=== PATIENT | male | born 1960 ===

== ENCOUNTER 2020-04-26 08:40 | Inpatient (IN) | payer OTHER ==
[2020-04-26] MEDS ORDERED: dilTIAZem 25 MG/5 ML INJ IV ONE (09:13)
--- NOTE | 2020-04-26 09:27 | Emergency Department Report ---
HPI - General Chief Complaint: Dyspnea/Respdistress PUI?: No Time Seen by Provider: 04/26/20 09:02 - [facility] HPI: Room 23 The patient is a 60-year-old male present with a chief complaint of chest pain shortness of breath. The patient states for 1 week he has had constant left- sided chest pain associated with shortness of breath and diaphoresis. Patient denies nausea vomiting. Patient states he is unable to describe the quality of his pain. Patient states he does not feel like he is having palpitations. Patient gives his chest pain a score of 10/10 ED Past Medical Hx - Past Medical History Previous Medical History?: Yes Hx Hypertension: Yes - Surgical History Past Surgical History?: No - Family History Family history: no significant - Social History Smoking Status: Current Every Day Smoker (1 pack/day) Substance Use Type: None (Denies illicit drug use), Alcohol (Daily) ED Review of Systems ROS: Stated complaint: BLANCHE Other details as noted in HPI Constitutional: diaphoresis Eyes: denies: eye pain ENT: denies: throat pain Respiratory: shortness of breath Cardiovascular: chest pain. denies: palpitations Endocrine: no symptoms reported Gastrointestinal: denies: nausea, vomiting Physical Exam - Physical Exam Vital Signs: Vital Signs 04/26/20 08:47 Temperature 98.1 F Pulse Rate 146 H Respiratory 21 Rate Blood Pressure 98/42 [Left] O2 Sat by Pulse 96 Oximetry Physical Exam: GENERAL: The patient is well-developed well-nourished male lying on stretcher not appearing to be in acute distress. [] HEENT: Normocephalic. Atraumatic. Extraocular motions are intact. Patient has moist mucous membranes. NECK: Supple. Trachea midline CHEST/LUNGS: Clear to auscultation. There is no respiratory distress noted. HEART/CARDIOVASCULAR: Irregularly irregular. There is tachycardia. There is no gallop rub or murmur. ABDOMEN: Abdomen is soft, nontender. Patient has normal bowel sounds. There is no abdominal distention. SKIN: There is no rash. There is no diaphoresis. NEURO: The patient is awake, alert, and oriented. The patient is cooperative. The patient has normal speech MUSCULOSKELETAL: There is no evidence of acute injury. ED Course Vital Signs 04/26/20 08:47 Temperature 98.1 F Pulse Rate 146 H Respiratory 21 Rate Blood Pressure 98/42 [Left] O2 Sat by Pulse 96 Oximetry ED Medical Decision Making - Lab Data Result diagrams: 04/26/20 09:25 04/26/20 09:25 Laboratory Tests 04/26/20 04/26/20 04/26/20 09:25 09:25 09:25 WBC 8.0 RBC 4.99 Hgb 15.5 H Hct 47.9 H MCV 96 H MCH 31 MCHC 32 RDW 16.1 H Plt Count 126 L Lymph % (Auto) 23.3 [place] % (Auto) 8.0 H Eos % (Auto) 1.1 Baso % (Auto) 1.3 Lymph # 1.8 [place] # 0.6 Eos # 0.1 Baso # 0.1 Seg Neutrophils % 66.3 Seg Neutrophils # 5.3 PT 14.7 INR 1.17 H APTT 26.6 Sodium 140 Potassium 4.1 Chloride 106.0 Carbon Dioxide 19 L Anion Gap 19 BUN 10 Creatinine 0.7 L Estimated GFR > 60 BUN/Creatinine Ratio 14 Glucose 108 H Calcium 8.6 Magnesium Total Creatine Kinase 85 CK-MB (CK-2) 3.8 CK-MB (CK-2) Rel Index 4.4 H Troponin T 0.010 NT-Pro-B Natriuret Pep 1750 H TSH Free T4 04/26/20 04/26/20 09:25 09:25 WBC RBC Hgb Hct MCV MCH MCHC RDW Plt Count Lymph % (Auto) [place] % (Auto) Eos % (Auto) Baso % (Auto) Lymph # [place] # Eos # Baso # Seg Neutrophils % Seg Neutrophils # PT INR APTT Sodium Potassium Chloride Carbon Dioxide Anion Gap BUN Creatinine Estimated GFR BUN/Creatinine Ratio Glucose Calcium Magnesium 1.60 L Total Creatine Kinase CK-MB (CK-2) CK-MB (CK-2) Rel Index Troponin T NT-Pro-B Natriuret Pep TSH 1.390 Free T4 1.06 - EKG Data -: EKG Interpreted by Me Rate: tachycardia - EKG Data When compared to previous EKG there are: previous EKG unavailable Interpretation: other (Atrial fibrillation with a rapid ventricular response at 136 bpm) - Radiology Data Radiology results: report reviewed (Chest x-ray), image reviewed (Chest x-ray) interpreted by me: Chest x-ray-CHF Chest x-ray (read by radiologist)-cardiac enlargement with diffuse interstitial pulmonary edema, left ventricular decompensation is a concern - Differential Diagnosis A. fib with RVR, CHF, ACS, pericarditis, GERD Critical care attestation.: If time is entered above; I have spent that time in minutes in the direct care of this critically ill patient, excluding procedure time. ED Disposition Clinical Impression: Atrial fibrillation with rapid ventricular response, CHF (congestive heart failure), Chest pain Disposition: OP ADMIT IP TO THIS HOSP Is pt being admited?: Yes Does the pt Need Aspirin: Yes Condition: Fair Instructions: Chest Pain (ED) Time of Disposition: 10:51 (Hospitalist paged)
[2020-04-26 09:39] LABS: Basophils # (Auto) 0.1 K/mm3 (0.0-0.1); Basophils % (Auto) 1.3 % (0.0-1.8); Eosinophils # (Auto) 0.1 K/mm3 (0.0-0.4); Eosinophils % (Auto) 1.1 % (0.0-4.3); Hematocrit 47.9 % (35.5-45.6); Hemoglobin 15.5 gm/dl (11.8-15.2); Lymphocytes # (Auto) 1.8 K/mm3 (1.2-5.4); Lymphocytes % (Auto) 23.3 % (13.4-35.0); Mean Corpuscular HGB Conc 32 % (32-34); Mean Corpuscular Volume 96 fl (84-94); Monocytes # (Auto) 0.6 K/mm3 (0.0-0.8); Platelet Count 126 K/mm3 (140-440); Red Blood Count 4.99 M/mm3 (3.65-5.03); Red Cell Distribution Width 16.1 % (13.2-15.2)
[2020-04-26 09:55] LABS: INR 1.17 (0.87-1.13); Partial Thromboplastin Time 26.6 Sec. (24.2-36.6)
[2020-04-26] MEDS ORDERED: fentaNYL 100 MCG/2 ML INJ IV ONE ×2 (10:02→12:07)
[2020-04-26] MEDS ORDERED: ONDANSETRON 4 MG/2 ML INJ IV ONE (10:02)
[2020-04-26] MEDS ORDERED: ASPIRIN 325 MG TAB PO ONE (10:02)
[2020-04-26 10:07] LABS: Creatine Kinase MB 3.8 ng/mL (0.0-4.0)
[2020-04-26 10:08] LABS: BUN/Creatinine Ratio 14; Blood Urea Nitrogen 10 mg/dL (9-20); Calcium 8.6 mg/dL (8.4-10.2); Hemolysis Index 4
[2020-04-26 10:13] LABS: Free T4 (Free Thyroxine) 1.06 ng/dL (0.76-1.46)
[2020-04-26] MEDS ORDERED: MAGNESIUM SULFATE 2 GM/50 ML BAG IV ONE (10:45)
[2020-04-26] MEDS ORDERED: fentaNYL 100 MCG/2 ML INJ ONE (12:12)
[2020-04-26] MEDS: dilTIAZem/D5W 100 MG/100 ML BAG IV SCH (12:32)
[2020-04-26] MEDS ORDERED: ONDANSETRON 4 MG/2 ML INJ IV PRN (14:54)
[2020-04-26] MEDS ORDERED: FUROSEMIDE 40 MG/4 ML INJ IV STA (14:57)
[2020-04-26] MEDS ORDERED: NITROGLYCERIN 0.4 MG TAB SUBL SL PRN (14:58)
[2020-04-26] MEDS ORDERED: ENOXAPARIN 100 MG/1 ML INJ SUB-Q ONE (17:18)
[2020-04-26] MEDS ORDERED: hydrALAZINE 25 MG TAB ONE (17:19)
[2020-04-26] MEDS ORDERED: FUROSEMIDE 40 MG/4 ML INJ ONE (17:19)
[2020-04-26] MEDS: hydrALAZINE 25 MG TAB PO SCH ×2 (17:25→22:53)
[2020-04-26] MEDS: ENOXAPARIN 100 MG/1 ML INJ SUB-Q SCH ×2 (17:26→22:50)
[2020-04-26] MEDS: MORPHINE 2 MG/1 ML INJ IV PRN (20:22)
[2020-04-26] MEDS ORDERED: MORPHINE 2 MG/1 ML INJ ONE (20:22)
[2020-04-27 05:46] LABS: Basophils # (Auto) 0.1 K/mm3 (0.0-0.1); Basophils % (Auto) 0.9 % (0.0-1.8); Eosinophils % (Auto) 0.1 % (0.0-4.3); Hematocrit 45.7 % (35.5-45.6); Hemoglobin 15.2 gm/dl (11.8-15.2); Lymphocytes # (Auto) 1.2 K/mm3 (1.2-5.4); Mean Corpuscular HGB Conc 33 % (32-34); Mean Corpuscular Volume 96 fl (84-94); Monocytes % (Auto) 9.9 % (0.0-7.3); Platelet Count 123 K/mm3 (140-440); Red Blood Count 4.78 M/mm3 (3.65-5.03); Red Cell Distribution Width 15.8 % (13.2-15.2)
[2020-04-27 05:56] LABS: BUN/Creatinine Ratio 14; Blood Urea Nitrogen 10 mg/dL (9-20); Calcium 8.7 mg/dL (8.4-10.2); Hemolysis Index 11
[2020-04-27] MEDS: hydrALAZINE 25 MG TAB PO SCH (06:06)
[2020-04-27] MEDS: FUROSEMIDE 40 MG/4 ML INJ IV SCH ×2 (06:10→18:07)
[2020-04-27] MEDS: dilTIAZem/D5W 100 MG/100 ML BAG IV SCH (08:58)
[2020-04-27] MEDS: ENOXAPARIN 100 MG/1 ML INJ SUB-Q SCH ×2 (09:02→22:40)
[2020-04-27] MEDS: MORPHINE 2 MG/1 ML INJ IV PRN (09:11)
[2020-04-27] MEDS ORDERED: DIGOXIN 0.5 MG/2 ML INJ IV ONE (11:00)
[2020-04-27] MEDS: LISINOPRIL 5 MG TAB PO SCH (11:14)
[2020-04-27] MEDS: SPIRONOLACTONE 25 MG TAB PO SCH (11:15)
[2020-04-27] MEDS: METOPROLOL TARTRATE 50 MG TAB PO SCH ×2 (11:16→20:10)
[2020-04-27] MEDS ORDERED: MAGNESIUM SULFATE 4 GM/100 ML BAG IV ONE (14:00)
[2020-04-27] MEDS: WARFARIN 7.5 MG TAB PO SCH (18:07)
[2020-04-27] MEDS: DIGOXIN 0.25 MG TAB PO SCH (18:08)
[2020-04-27] MEDS: ACETAMINOPHEN 325 MG TAB PO PRN (20:10)
[2020-04-28] MEDS: METOPROLOL TARTRATE 50 MG TAB PO SCH ×3 (03:43→18:00)
[2020-04-28 05:35] LABS: INR 1.32 (0.87-1.13)
[2020-04-28] MEDS: FUROSEMIDE 40 MG/4 ML INJ IV SCH ×2 (05:55→17:14)
[2020-04-28] MEDS: ENOXAPARIN 100 MG/1 ML INJ SUB-Q SCH ×3 (09:01→21:01)
[2020-04-28] MEDS: LISINOPRIL 5 MG TAB PO SCH (09:01)
[2020-04-28] MEDS: SPIRONOLACTONE 25 MG TAB PO SCH (09:01)
[2020-04-28] MEDS: ACETAMINOPHEN 325 MG TAB PO PRN (09:05)
[2020-04-28] MEDS: DIGOXIN 0.25 MG TAB PO SCH (17:14)
[2020-04-28] MEDS: WARFARIN 7.5 MG TAB PO SCH (17:14)
[2020-04-28] MEDS ORDERED: MAGNESIUM SULFATE 4 GM/100 ML BAG IV ONE (19:30)
[2020-04-29] MEDS: METOPROLOL TARTRATE 50 MG TAB PO SCH ×2 (03:13→11:24)
[2020-04-29 04:47] LABS: INR 1.2 (0.87-1.13)
[2020-04-29] MEDS: FUROSEMIDE 40 MG/4 ML INJ IV SCH (06:05)
[2020-04-29] MEDS ORDERED: REGADENOSON 0.4 MG/5 ML INJ IV ONE (07:47)
[2020-04-29] MEDS ORDERED: MAGNESIUM OXIDE 400 MG TAB PO SCH (11:00)
[2020-04-29] MEDS: SPIRONOLACTONE 25 MG TAB PO SCH (11:17)
[2020-04-29] MEDS: ENOXAPARIN 100 MG/1 ML INJ SUB-Q SCH (11:17)
[2020-04-29] MEDS: LISINOPRIL 5 MG TAB PO SCH (11:17)
[2020-04-29 11:19] VITALS: BP 146/88
--- NOTE | 2020-04-29 13:36 | Treadmill Report ---
THALLIUM STRESS TEST REPORT LEFT VENTRICLE: Left ventricle is very mildly dilated. Perfusion study demonstrates homogeneous uptake of the tracer in all segments, no significant defects identified. Gated analysis is not available. CONCLUSION: No demonstrable ischemia on thallium perfusion imaging. Clinical correlation is recommended. Echocardiographic assessment of left ventricular size and systolic function is recommended. JOB# [id number] CA/NTS
== END 2020-04-29 15:45 | disposition home or self-care (01) | DRG 291 ==
LOC: ED 08:40 → 4A 10:53 → IMCU 21:12 → 4A 04-27 17:18
PROVIDERS: ADMIT Internal Medicine; ATTEND Internal Medicine
DX: I11.0 Hypertensive heart disease with heart failure (principal); I50.21 Acute systolic (congestive) heart failure; J96.00 Acute respiratory failure, unspecified whether with hypoxia or hypercapnia; I48.91 Unspecified atrial fibrillation; F17.210 Nicotine dependence, cigarettes, uncomplicated; E83.42 Hypomagnesemia; I05.0 Rheumatic mitral stenosis
CPT/HCPCS: 36415; 71045; 78452; 80048; 82550; 82553; 83735; 83880; 84439; 84443; 84484; 85025; 85610; 85730; 93005; 93017; 93306; 94760; G0378; A9502; J1160; J1650; J1940; J2270; J2405; J2785; J3010; J3475

== ENCOUNTER 2020-09-05 17:14 | Inpatient (IN) | payer OTHER, SELFPAY ==
[2020-09-05] MEDS ORDERED: dilTIAZem 25 MG/5 ML INJ IV ONE (17:55)
[2020-09-05] MEDS ORDERED: ENOXAPARIN 100 MG/1 ML INJ SUB-Q ONE (17:56)
[2020-09-05] MEDS ORDERED: FUROSEMIDE 40 MG/4 ML INJ IV ONE (17:57)
--- NOTE | 2020-09-05 17:57 | Emergency Department Report ---
ED Palpitations HPI - General Chief Complaint: Arrhythmia/Palpitations Stated Complaint: A-FIB/CHEST PAIN Time Seen by Provider: 09/05/20 17:28 Source: EMS, old records reviewed Mode of arrival: Ambulatory Limitations: Language Barrier (pt does speak some Thai however [employer] (alex) used) - History of Present Illness Initial Comments: 60-year-old male with a past medical history of A. fib, CHF with a EF of 30-35%, hypertension, daily alcohol use, and tobacco use presents to the hospital with complaints of shortness of breath and chest pain x3 days. The patient complains of a constant anterior mid chest pressure without aggravating alleviating factors. He complains of intermittent shortness of breath with exertion. Positive nausea without vomiting or diaphoresis. Patient denies sensation of palpitations or tachycardia. Patient drinks 4 beers daily with gastric this morning. 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 As per medical record review patient was admitted here in April 2020 and was diagnosed with A. fib, CHF, and hypomagnesemia. He was treated with a Cardizem drip in the ICU and then discharged metoprolol, Coumadin, Lasix, spironolactone, and digoxin. Patient had a negative stress test during his last admission. Patient states which his prescriptions ran out in June and he has not continued to take any medication. He has been unable to follow up due to lack of insurance/money. Patient initially presented to hospital stating he did not have any known medical problems and that his fast heart rate was fixed with his recent admission in April. I used a marine consultant to explain to him in details his diagnosis during the last admission and his need for long-term and chronic medication treatment. Patient now voices understanding about his medical diagnosis and need for compliance with medications and follow-up. - Related Data Previous Rx's Medication Instructions Recorded Last Taken Type Digoxin [Lanoxin] 0.25 mg PO DAILY@1700 #30 tablet 04/29/20 Unknown Rx Furosemide [Lasix TAB] 40 mg PO QDAY #30 tablet 04/29/20 Unknown Rx Magnesium Oxide [Mag-Ox] 400 mg PO BID 7 Days #14 tablet 04/29/20 Unknown Rx Metoprolol [Lopressor TAB] 50 mg PO BID #60 tablet 04/29/20 Unknown Rx Spironolactone [Aldactone] 25 mg PO QDAY #30 tablet 04/29/20 Unknown Rx Warfarin [Coumadin] 7.5 mg PO DAILY@1700 #30 tablet 04/29/20 Unknown Rx lisinopriL [Zestril TAB] 5 mg PO QDAY #30 tablet 04/29/20 Unknown Rx Allergies Allergy/AdvReac Type Severity Reaction Status Date / Time No Known Allergies Allergy Unverified 04/26/20 08:51 ED Review of Systems ROS: Stated complaint: A-FIB/CHEST PAIN Other details as noted in HPI Comment: All other systems reviewed and negative ED Past Medical Hx - Past Medical History Previous Medical History?: Yes Hx Hypertension: Yes Hx Congestive Heart Failure: No Hx Diabetes: No Hx Asthma: Yes Hx COPD: No - Surgical History Past Surgical History?: No - Social History Smoking Status: Current Every Day Smoker Substance Use Type: None - Medications Home Medications: Home Medications Medication Instructions Recorded Confirmed Last Taken Type Digoxin [Lanoxin] 0.25 mg PO DAILY@1700 #30 tablet 04/29/20 Unknown Rx Furosemide [Lasix TAB] 40 mg PO QDAY #30 tablet 04/29/20 Unknown Rx Magnesium Oxide [Mag-Ox] 400 mg PO BID 7 Days #14 tablet 04/29/20 Unknown Rx Metoprolol [Lopressor TAB] 50 mg PO BID #60 tablet 04/29/20 Unknown Rx Spironolactone [Aldactone] 25 mg PO QDAY #30 tablet 04/29/20 Unknown Rx Warfarin [Coumadin] 7.5 mg PO DAILY@1700 #30 tablet 04/29/20 Unknown Rx lisinopriL [Zestril TAB] 5 mg PO QDAY #30 tablet 04/29/20 Unknown Rx ED Physical Exam - General Limitations: No Limitations - Other Other exam information: General: No acute distress Head: Atraumatic Eyes: normal appearance ENT: Moist mucous membranes Neck: Normal appearance, no midline tenderness Chest: Clear to auscultation bilaterally CV: Tachycardic irregular rhythm Abdomen: Soft, normal bowel sounds, nontender, nondistended, no rebound or guarding Back: Normal inspection Extremity: Bilateral lower extremity edema, no calf tenderness Neuro: Alert O x 3, no facial asymmetry, speech clear, no gross motor sensory deficit Psych: Appropriate behavior Skin: No rash ED Course Vital Signs 09/05/20 09/05/20 09/05/20 17:31 17:45 18:01 Temperature 99.1 F Pulse Rate 132 H 128 H 122 H Respiratory 24 19 22 Rate Blood Pressure 148/95 148/95 154/99 Blood Pressure [Left] O2 Sat by Pulse 97 98 96 Oximetry 09/05/20 09/05/20 09/05/20 18:15 18:26 18:31 Temperature Pulse Rate 132 H 145 H 111 H Respiratory 18 22 Rate Blood Pressure 154/99 144/108 152/85 Blood Pressure [Left] O2 Sat by Pulse 98 94 Oximetry 09/05/20 09/05/20 09/05/20 18:39 18:45 19:01 Temperature Pulse Rate 140 H 110 H 103 H Respiratory 21 19 Rate Blood Pressure 152/85 158/81 158/81 Blood Pressure [Left] O2 Sat by Pulse 97 98 Oximetry 09/05/20 09/05/20 09/05/20 19:15 19:30 19:45 Temperature Pulse Rate 105 H 108 H 108 H Respiratory 14 14 23 Rate Blood Pressure 142/119 149/80 149/80 Blood Pressure [Left] O2 Sat by Pulse 98 97 95 Oximetry 09/05/20 09/05/20 09/05/20 19:50 20:01 20:15 Temperature Pulse Rate 94 H 106 H Respiratory 20 22 Rate Blood Pressure 156/94 156/94 Blood Pressure 152/104 [Left] O2 Sat by Pulse 97 96 97 Oximetry 09/05/20 09/05/20 09/05/20 20:30 20:45 21:00 Temperature Pulse Rate 102 H 102 H Respiratory 22 22 Rate Blood Pressure 145/94 145/94 143/94 Blood Pressure [Left] O2 Sat by Pulse 97 97 96 Oximetry 09/05/20 09/05/20 09/05/20 21:15 21:31 21:45 Temperature Pulse Rate 95 H 90 102 H Respiratory 20 23 15 Rate Blood Pressure 143/94 157/93 167/86 Blood Pressure [Left] O2 Sat by Pulse 96 96 96 Oximetry 09/05/20 09/05/20 09/05/20 22:00 22:15 22:30 Temperature Pulse Rate 109 H 107 H 95 H Respiratory 14 26 H 29 H Rate Blood Pressure 155/90 155/90 163/92 Blood Pressure [Left] O2 Sat by Pulse 95 95 94 Oximetry ED Medical Decision Making - Lab Data Result diagrams: 09/05/20 18:04 09/05/20 18:04 Lab Results 09/05/20 09/05/20 09/05/20 Range/Units 18:04 18:04 18:04 WBC 5.7 (4.5-11.0) K/mm3 RBC 4.88 (3.65-5.03) M/mm3 Hgb 16.1 H (11.8-15.2) gm/dl Hct 47.6 H (35.5-45.6) % MCV 97 H (84-94) fl MCH 33 H (28-32) pg MCHC 34 (32-34) % RDW 14.7 (13.2-15.2) % Plt Count 108 L (140-440) K/mm3 Lymph % (Auto) 17.3 (13.4-35.0) % [place] % (Auto) 13.0 H (0.0-7.3) % Eos % (Auto) 0.8 (0.0-4.3) % Baso % (Auto) 0.9 (0.0-1.8) % Lymph # (Auto) 1.0 L (1.2-5.4) K/mm3 [place] # (Auto) 0.7 (0.0-0.8) K/mm3 Eos # (Auto) 0.0 (0.0-0.4) K/mm3 Baso # (Auto) 0.0 (0.0-0.1) K/mm3 Seg Neutrophils % 68.0 (40.0-70.0) % Seg Neutrophils # 3.9 (1.8-7.7) K/mm3 PT 14.5 (12.2-14.9) Sec. INR 1.11 (0.87-1.13) APTT 28.2 (24.2-36.6) Sec. Sodium 136 L (137-145) mmol/L Potassium 4.5 (3.6-5.0) mmol/L Chloride 100.5 (98-107) mmol/L Carbon Dioxide 20 L (22-30) mmol/L Anion Gap 20 mmol/L BUN 11 (9-20) mg/dL Creatinine 0.9 (0.8-1.3) mg/dL Estimated GFR > 60 ml/min BUN/Creatinine Ratio 12 % Glucose 79 (75-100) mg/dL Calcium 9.0 (8.4-10.2) mg/dL Magnesium (1.7-2.3) mg/dL Total Bilirubin 0.50 (0.1-1.2) mg/dL AST 26 (5-40) units/L ALT 12 (7-56) units/L Alkaline Phosphatase 106 (35-129) units/L Troponin T < 0.010 (0.00-0.029) ng/mL NT-Pro-B Natriuret Pep (0-900) pg/mL Total Protein 9.0 H (6.3-8.2) g/dL Albumin 3.2 L (3.9-5) g/dL Albumin/Globulin Ratio 0.6 % TSH (0.270-4.200) mlU/mL Free T4 (0.76-1.46) ng/dL Digoxin (0.9-2.0) ng/mL Plasma/Serum Alcohol (0-0.07) % 09/05/20 09/05/20 09/05/20 Range/Units 18:04 18:04 18:04 WBC (4.5-11.0) K/mm3 RBC (3.65-5.03) M/mm3 Hgb (11.8-15.2) gm/dl Hct (35.5-45.6) % MCV (84-94) fl MCH (28-32) pg MCHC (32-34) % RDW (13.2-15.2) % Plt Count (140-440) K/mm3 Lymph % (Auto) (13.4-35.0) % [place] % (Auto) (0.0-7.3) % Eos % (Auto) (0.0-4.3) % Baso % (Auto) (0.0-1.8) % Lymph # (Auto) (1.2-5.4) K/mm3 [place] # (Auto) (0.0-0.8) K/mm3 Eos # (Auto) (0.0-0.4) K/mm3 Baso # (Auto) (0.0-0.1) K/mm3 Seg Neutrophils % (40.0-70.0) % Seg Neutrophils # (1.8-7.7) K/mm3 PT (12.2-14.9) Sec. INR (0.87-1.13) APTT (24.2-36.6) Sec. Sodium (137-145) mmol/L Potassium (3.6-5.0) mmol/L Chloride (98-107) mmol/L Carbon Dioxide (22-30) mmol/L Anion Gap mmol/L BUN (9-20) mg/dL Creatinine (0.8-1.3) mg/dL Estimated GFR ml/min BUN/Creatinine Ratio % Glucose (75-100) mg/dL Calcium (8.4-10.2) mg/dL Magnesium 1.50 L (1.7-2.3) mg/dL Total Bilirubin (0.1-1.2) mg/dL AST (5-40) units/L ALT (7-56) units/L Alkaline Phosphatase (35-129) units/L Troponin T (0.00-0.029) ng/mL NT-Pro-B Natriuret Pep (0-900) pg/mL Total Protein (6.3-8.2) g/dL Albumin (3.9-5) g/dL Albumin/Globulin Ratio % TSH (0.270-4.200) mlU/mL Free T4 (0.76-1.46) ng/dL Digoxin 0.3 L (0.9-2.0) ng/mL Plasma/Serum Alcohol 0.07 (0-0.07) % 09/05/20 09/05/20 09/05/20 Range/Units 18:04 18:11 20:55 WBC (4.5-11.0) K/mm3 RBC (3.65-5.03) M/mm3 Hgb (11.8-15.2) gm/dl Hct (35.5-45.6) % MCV (84-94) fl MCH (28-32) pg MCHC (32-34) % RDW (13.2-15.2) % Plt Count (140-440) K/mm3 Lymph % (Auto) (13.4-35.0) % [place] % (Auto) (0.0-7.3) % Eos % (Auto) (0.0-4.3) % Baso % (Auto) (0.0-1.8) % Lymph # (Auto) (1.2-5.4) K/mm3 [place] # (Auto) (0.0-0.8) K/mm3 Eos # (Auto) (0.0-0.4) K/mm3 Baso # (Auto) (0.0-0.1) K/mm3 Seg Neutrophils % (40.0-70.0) % Seg Neutrophils # (1.8-7.7) K/mm3 PT (12.2-14.9) Sec. INR (0.87-1.13) APTT (24.2-36.6) Sec. Sodium (137-145) mmol/L Potassium (3.6-5.0) mmol/L Chloride (98-107) mmol/L Carbon Dioxide (22-30) mmol/L Anion Gap mmol/L BUN (9-20) mg/dL Creatinine (0.8-1.3) mg/dL Estimated GFR ml/min BUN/Creatinine Ratio % Glucose (75-100) mg/dL Calcium (8.4-10.2) mg/dL Magnesium (1.7-2.3) mg/dL Total Bilirubin (0.1-1.2) mg/dL AST (5-40) units/L ALT (7-56) units/L Alkaline Phosphatase (35-129) units/L Troponin T < 0.010 (0.00-0.029) ng/mL NT-Pro-B Natriuret Pep 2644 H (0-900) pg/mL Total Protein (6.3-8.2) g/dL Albumin (3.9-5) g/dL Albumin/Globulin Ratio % TSH 1.650 (0.270-4.200) mlU/mL Free T4 1.19 (0.76-1.46) ng/dL Digoxin (0.9-2.0) ng/mL Plasma/Serum Alcohol (0-0.07) % - EKG Data -: EKG Interpreted by Me (Atrial fibrillation) EKG shows normal: intervals (QTC 517), ST-T waves (Lateral T wave inversion, LVH) Rate: tachycardia (128) - EKG Data When compared to previous EKG there are: no significant change - Radiology Data Radiology results: report reviewed Chest x-ray: No acute finding - Medical Decision Making Patient presents to the hospital with atrial fibrillation with RVR with symptoms of shortness of breath and chest pain. Patient has a history of A. fib and CHF has been noncompliant with medications x2 months. Patient had a negative stress test in April. Patient received Cardizem bolus followed by drip with rate control. Patient placed on CIWA protocol for possible alcohol withdrawal symp toms since he drinks alcohol daily. Patient received Lovenox for anticoagulation and IV magnesium for mild hypomagnesemia. Patient will be admitted to the hospitalist service for further treatment. consult with critical care md ordered Critical Care Time: Yes Critical care time in (mins) excluding proc time.: 40 Critical care attestation.: If time is entered above; I have spent that time in minutes in the direct care of this critically ill patient, excluding procedure time. ED Disposition Clinical Impression: Atrial fibrillation with rapid ventricular response, Noncompliance with medication regimen, Shortness of breath, Chest pain, Hypomagnesemia, Alcohol abuse Disposition: OP ADMIT IP TO THIS HOSP Is pt being admited?: Yes Condition: Stable Time of Disposition: 22:08 (Dr wall/hosp)
--- NOTE | 2020-09-05 18:12 | XRay Report ---
XR chest 1V ap INDICATION / CLINICAL INFORMATION: Chest Pain, sob COMPARISON: 04/26/2020 FINDINGS: SUPPORT DEVICES: None. HEART / MEDIASTINUM: No significant abnormality. LUNGS / PLEURA: Lungs are clear. Costophrenic sulci are sharp. No pneumothorax. ADDITIONAL FINDINGS: No significant additional findings. IMPRESSION: 1. No acute findings. Signer Name: Adalid Kamara MD Signed: 09/05/2020 6:08 PM Workstation Name: [id number]
[2020-09-05 18:34] LABS: Basophils % (Auto) 0.9 % (0.0-1.8); Eosinophils % (Auto) 0.8 % (0.0-4.3); Hematocrit 47.6 % (35.5-45.6); Hemoglobin 16.1 gm/dl (11.8-15.2); Lymphocytes % (Auto) 17.3 % (13.4-35.0); Mean Corpuscular HGB Conc 34 % (32-34); Mean Corpuscular Volume 97 fl (84-94); Monocytes # (Auto) 0.7 K/mm3 (0.0-0.8); Platelet Count 108 K/mm3 (140-440); Red Blood Count 4.88 M/mm3 (3.65-5.03); Red Cell Distribution Width 14.7 % (13.2-15.2)
[2020-09-05 18:43] LABS: INR 1.11 (0.87-1.13)
[2020-09-05 18:44] LABS: Partial Thromboplastin Time 28.2 Sec. (24.2-36.6)
[2020-09-05 18:53] LABS: Alanine Aminotransferase 12 units/L (7-56); Albumin 3.2 g/dL (3.9-5); BUN/Creatinine Ratio 12; Blood Urea Nitrogen 11 mg/dL (9-20); Hemolysis Index 9
[2020-09-05] MEDS ORDERED: dilTIAZem/D5W 100 MG/100 ML BAG IV SCH (19:00)
[2020-09-05 19:11] LABS: Free T4 (Free Thyroxine) 1.19 ng/dL (0.76-1.46)
[2020-09-05] MEDS ORDERED: MAGNESIUM SULFATE 2 GM/50 ML BAG IV ONE (19:14)
[2020-09-05] MEDS ORDERED: LORazepam 2 MG TAB PO PRN (22:09)
[2020-09-05] MEDS ORDERED: MORPHINE 2 MG/1 ML INJ IV PRN (22:32)
[2020-09-05] MEDS ORDERED: MAGNESIUM HYDROXIDE (MOM) ORAL LIQD UDC PO PRN (22:32)
[2020-09-05] MEDS ORDERED: ONDANSETRON 4 MG/2 ML INJ IV PRN (22:32)
--- NOTE | 2020-09-05 22:45 | History and Physical Report ---
History of Present Illness Date of examination: 09/05/20 Date of admission: 09/05/2020 Chief complaint: Shortness of breath Palpitation History of present illness: 60-year-old male with known history of atrial fibrillation, CHF with ejection fraction of 30 to 35%, hypertension, alcohol abuse and tobacco abuse presented to the emergency room today with shortness of breath and chest pain which has been ongoing for about 3 days. Patient is known to be noncompliant with his medication. He has had some nausea but no vomiting. He has had some mild swelling in his lower extremities. Patient is known to drink alcohol on a daily basis and his last drink was this morning. He typically drinks about 4 beers daily. He admits that he has not been quite compliant with his medication and his medication ran out about 2 months ago. 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 Patient was seen here and admitted in April 2020 for atrial fibrillation, hypomagnesemia and CHF. He was placed on Cardizem drip and admitted into the ICU. He was discharged on metoprolol, Lasix, spironolactone, digoxin and Coumadin. Upon evaluation in the emergency room today patient was found to be in atrial fibrillation with RVR. He was given Cardizem IV and subsequently placed on Cardizem drip. His BNP was found to be elevated however his chest x-ray was unremarkable. Past History Past Medical History: atrial fib, heart failure (EF 30-35%), hypertension, other (Asthma, Non compliance with medications) Past Surgical History: No surgical history Social history: smoking (Current daily smoker), alcohol abuse Family history: no significant family history Medications and Allergies Allergies Allergy/AdvReac Type Severity Reaction Status Date / Time No Known Allergies Allergy Unverified 04/26/20 08:51 Home Medications Medication Instructions Recorded Confirmed Last Taken Type Digoxin [Lanoxin] 0.25 mg PO DAILY@1700 #30 tablet 04/29/20 Unknown Rx Furosemide [Lasix TAB] 40 mg PO QDAY #30 tablet 04/29/20 Unknown Rx Magnesium Oxide [Mag-Ox] 400 mg PO BID 7 Days #14 tablet 04/29/20 Unknown Rx Metoprolol [Lopressor TAB] 50 mg PO BID #60 tablet 04/29/20 Unknown Rx Spironolactone [Aldactone] 25 mg PO QDAY #30 tablet 04/29/20 Unknown Rx Warfarin [Coumadin] 7.5 mg PO DAILY@1700 #30 tablet 04/29/20 Unknown Rx lisinopriL [Zestril TAB] 5 mg PO QDAY #30 tablet 04/29/20 Unknown Rx Active Meds: Active Medications Acetaminophen (Tylenol) 650 mg PO Q6H PRN PRN Reason: Pain MILD(1-3)/Fever >100.5/GILLESPIE Furosemide (Lasix) 20 mg IV 0600,1800 LUZMARIA Diltiazem HCl (Cardizem/D5w 100mg/100ml) 100 mg in 100 mls @ 5 mls/hr IV TITR LUZMARIA; Protocol Last Titration: 09/05/20 20:08 Dose: 15 mg/hr, 15 mls/hr Documented by: Lorazepam (Ativan) 2 mg PO Q1HR PRN PRN Reason: CIWA-Ar 8-15 Lorazepam (Ativan) 2 mg IV Q1HR PRN PRN Reason: CIWA-Ar 8-15 Lorazepam (Ativan) 4 mg IV Q1HR PRN PRN Reason: CIWA-Ar 16-25 Magnesium Hydroxide (Milk Of Magnesia) 30 ml PO Q4H PRN PRN Reason: Constipation Morphine Sulfate (Morphine) 2 mg IV Q5MIN PRN PRN Reason: Chest Pain unrelieved by NTG Ondansetron HCl (Zofran) 4 mg IV Q8H PRN PRN Reason: Nausea And Vomiting Sodium Chloride (Sodium Chloride Flush Syringe 10 Ml) 10 ml IV BID LUZMARIA Sodium Chloride (Sodium Chloride Flush Syringe 10 Ml) 10 ml IV PRN PRN PRN Reason: LINE FLUSH Review of Systems Constitutional: no fever, no chills Ears, nose, mouth and throat: no nasal congestion, no sore throat Cardiovascular: chest pain, leg edema, no palpitations Respiratory: shortness of breath, no cough Gastrointestinal: nausea, no abdominal pain, no vomiting, no diarrhea Genitourinary Male: no dysuria, no hematuria, no flank pain Musculoskeletal: no neck pain, no low back pain Integumentary: no rash, no pruritis Neurological: no headaches, no confusion Psychiatric: no anxiety, no depression Exam - Constitutional Vitals: Temp Pulse Resp BP Pulse Ox 99.1 F 107 H 26 H 155/90 95 09/05/20 17:31 09/05/20 22:15 10/15/20 22:15 09/05/20 22:15 09/05/20 22:15 General appearance: Present: no acute distress, well-nourished - EENT Eyes: Present: PERRL, EOM intact. Absent: scleral icterus ENT: hearing intact, clear oral mucosa, dentition normal - Neck Neck: Present: supple, normal ROM - Respiratory Respiratory effort: normal Respiratory: bilateral: CTA - Cardiovascular Rhythm: irregularly irregular Heart Sounds: Absent: S1 & S2, gallop, systolic murmur, diastolic murmur, rub - Extremities Extremities: no ischemia, pulses intact, pulses symmetrical, Full ROM Extremity abnormal: edema (Trace ankle edema) Peripheral Pulses: within normal limits - Abdominal General gastrointestinal: Present: soft, non-tender, non-distended, normal bowel sounds. Absent: mass - Integumentary Integumentary: Present: clear, warm, dry - Musculoskeletal Musculoskeletal: strength equal bilaterally - Psychiatric Psychiatric: appropriate mood/affect, intact judgment & insight, memory intact, cooperative - Neurologic Neurologic: CNII-XII intact, no focal deficits HEART Score - HEART Score Troponin: WBC 5.7 K/mm3 (4.5-11.0) 09/05/20 18:04 RBC 4.88 M/mm3 (3.65-5.03) 09/05/20 18:04 Hgb 16.1 gm/dl (11.8-15.2) H 09/05/20 18:04 Hct 47.6 % (35.5-45.6) H 09/05/20 18:04 MCV 97 fl (84-94) H 09/05/20 18:04 MCH 33 pg (28-32) H 09/05/20 18:04 MCHC 34 % (32-34) 09/05/20 18:04 RDW 14.7 % (13.2-15.2) 09/05/20 18:04 Plt Count 108 K/mm3 (140-440) L 09/05/20 18:04 Lymph % (Auto) 17.3 % (13.4-35.0) 09/05/20 18:04 Mclean % (Auto) 13.0 % (0.0-7.3) H 09/05/20 18:04 Eos % (Auto) 0.8 % (0.0-4.3) 09/05/20 18:04 Baso % (Auto) 0.9 % (0.0-1.8) 09/05/20 18:04 Lymph # (Auto) 1.0 K/mm3 (1.2-5.4) L 09/05/20 18:04 Mclean # (Auto) 0.7 K/mm3 (0.0-0.8) 09/05/20 18:04 Eos # (Auto) 0.0 K/mm3 (0.0-0.4) 09/05/20 18:04 Baso # (Auto) 0.0 K/mm3 (0.0-0.1) 09/05/20 18:04 Seg Neutrophils % 68.0 % (40.0-70.0) 09/05/20 18:04 Seg Neutrophils # 3.9 K/mm3 (1.8-7.7) 09/05/20 18:04 PT 14.5 Sec. (12.2-14.9) 09/05/20 18:04 INR 1.11 (0.87-1.13) 09/05/20 18:04 APTT 28.2 Sec. (24.2-36.6) 09/05/20 18:04 Sodium 136 mmol/L (137-145) L 09/05/20 18:04 Potassium 4.5 mmol/L (3.6-5.0) 09/05/20 18:04 Chloride 100.5 mmol/L (98-107) 09/05/20 18:04 Carbon Dioxide 20 mmol/L (22-30) L 09/05/20 18:04 Anion Gap 20 mmol/L 09/05/20 18:04 BUN 11 mg/dL (9-20) 09/05/20 18:04 Creatinine 0.9 mg/dL (0.8-1.3) 09/05/20 18:04 Estimated GFR > 60 ml/min 09/05/20 18:04 BUN/Creatinine Ratio 12 % 09/05/20 18:04 Glucose 79 mg/dL (75-100) 09/05/20 18:04 Calcium 9.0 mg/dL (8.4-10.2) 09/05/20 18:04 Magnesium 1.50 mg/dL (1.7-2.3) L 09/05/20 18:04 Total Bilirubin 0.50 mg/dL (0.1-1.2) 09/05/20 18:04 AST 26 units/L (5-40) 09/05/20 18:04 ALT 12 units/L (7-56) 09/05/20 18:04 Alkaline Phosphatase 106 units/L (35-129) 09/05/20 18:04 Troponin T < 0.010 ng/mL (0.00-0.029) 09/05/20 20:55 NT-Pro-B Natriuret Pep 2644 pg/mL (0-900) H 09/05/20 18:04 Total Protein 9.0 g/dL (6.3-8.2) H 09/05/20 18:04 Albumin 3.2 g/dL (3.9-5) L 09/05/20 18:04 Albumin/Globulin Ratio 0.6 % 09/05/20 18:04 TSH 1.650 mlU/mL (0.270-4.200) 09/05/20 18:11 Free T4 1.19 ng/dL (0.76-1.46) 09/05/20 18:11 Digoxin 0.3 ng/mL (0.9-2.0) L 09/05/20 18:04 Plasma/Serum Alcohol 0.07 % (0-0.07) 09/05/20 18:04 Results - Labs CBC & Chem 7: 09/06/20 03:51 09/06/20 03:51 Labs: Abnormal lab results 09/05/20 09/05/20 09/05/20 Range/Units 18:04 18:04 18:04 Hgb 16.1 H (11.8-15.2) gm/dl Hct 47.6 H (35.5-45.6) % MCV 97 H (84-94) fl MCH 33 H (28-32) pg Plt Count 108 L (140-440) K/mm3 Mclean % (Auto) 13.0 H (0.0-7.3) % Lymph # (Auto) 1.0 L (1.2-5.4) K/mm3 Sodium 136 L (137-145) mmol/L Carbon Dioxide 20 L (22-30) mmol/L Magnesium (1.7-2.3) mg/dL NT-Pro-B Natriuret Pep (0-900) pg/mL Total Protein 9.0 H (6.3-8.2) g/dL Albumin 3.2 L (3.9-5) g/dL Digoxin 0.3 L (0.9-2.0) ng/mL 09/05/20 09/05/20 Range/Units 18:04 18:04 Hgb (11.8-15.2) gm/dl Hct (35.5-45.6) % MCV (84-94) fl MCH (28-32) pg Plt Count (140-440) K/mm3 Mclean % (Auto) (0.0-7.3) % Lymph # (Auto) (1.2-5.4) K/mm3 Sodium (137-145) mmol/L Carbon Dioxide (22-30) mmol/L Magnesium 1.50 L (1.7-2.3) mg/dL NT-Pro-B Natriuret Pep 2644 H (0-900) pg/mL Total Protein (6.3-8.2) g/dL Albumin (3.9-5) g/dL Digoxin (0.9-2.0) ng/mL Assessment and Plan - Patient Problems (1) Atrial fibrillation with rapid ventricular response Current Visit: Yes Status: Acute Plan to address problem: Patient has been placed on Cardizem drip. We will titrate according to protocol. We will request cardiology evaluation. (2) CHF (congestive heart failure) Current Visit: No Status: Acute Plan to address problem: We will place patient on diuretics. Will monitor inputs and outputs and also monitor daily weights. Echocardiogram done in April 2020 shows EF of 30 to 35%. (3) Noncompliance with medication regimen Current Visit: Yes Status: Acute Plan to address problem: Compliance with medication is encouraged. Patient verbalized understanding. (4) Alcohol abuse Current Visit: Yes Status: Acute Plan to address problem: Patient has been placed on CIWA protocol. We will monitor closely. (5) DVT prophylaxis Current Visit: Yes Status: Acute Plan to address problem: Patient placed on subcutaneous Lovenox. (6) Hypomagnesemia Current Visit: Yes Status: Acute Plan to address problem: Will replete (7) Full code status Current Visit: Yes Status: Acute
[2020-09-05] MEDS ORDERED: LORazepam 2 MG/ML VIAL ONE (22:58)
[2020-09-05] MEDS: LORazepam 2 MG/ML VIAL IV PRN (23:00)
[2020-09-06] MEDS: dilTIAZem/D5W 100 MG/100 ML BAG IV SCH ×3 (01:57→14:50)
[2020-09-06] MEDS ORDERED: D5W/0.45% NACL/KCL 20 MEQ 20 MEQ/1,000 ML BAG IV SCH (02:00)
[2020-09-06 04:29] LABS: Hematocrit 47.9 % (35.5-45.6); Hemoglobin 16.1 gm/dl (11.8-15.2); Mean Corpuscular HGB Conc 34 % (32-34); Mean Corpuscular Volume 97 fl (84-94); Red Blood Count 4.95 M/mm3 (3.65-5.03); Red Cell Distribution Width 14.8 % (13.2-15.2)
[2020-09-06 04:30] LABS: Platelet Count 100 K/mm3 (140-440)
[2020-09-06 04:36] LABS: BUN/Creatinine Ratio 16; Blood Urea Nitrogen 13 mg/dL (9-20); Hemolysis Index 15
[2020-09-06 04:37] LABS: INR 1.16 (0.87-1.13)
[2020-09-06] MEDS ORDERED: FUROSEMIDE 20 MG/2 ML INJ ONE (06:20)
[2020-09-06] MEDS: FUROSEMIDE 20 MG/2 ML INJ IV SCH (06:23)
[2020-09-06 06:30] LABS: Basophils % (Manual) 0 % (0.0-1.8); Eosinophils % (Manual) 0 % (0.0-4.3); Platelet Estimate Consistent w Auto; Total Cells Counted 100
[2020-09-06] MEDS ORDERED: MORPHINE 2 MG/1 ML INJ ONE (11:06)
[2020-09-06] MEDS ORDERED: ONDANSETRON 4 MG/2 ML INJ ONE (11:06)
[2020-09-06] MEDS ORDERED: ACETAMINOPHEN 325 MG TAB ONE (11:06)
[2020-09-06] MEDS: ACETAMINOPHEN 325 MG TAB PO PRN (11:15)
[2020-09-06] MEDS ORDERED: MAGNESIUM SULFATE 2 GM in SODIUM CHLORIDE 0.9% 50 ML IV ONE (11:22)
--- NOTE | 2020-09-06 11:26 | Progress Note ---
Assessment and Plan Assessment and plan: 60-year-old male with known history of atrial fibrillation, CHF with ejection fraction of 30 to 35%, hypertension, alcohol abuse and tobacco abuse presented to the emergency room today with shortness of breath and chest pain which has been ongoing for about 3 days. Patient is known to be noncompliant with his medication. He has had some nausea but no vomiting. He has had some mild swelling in his lower extremities. Patient is known to drink alcohol on a daily basis and his last drink was this morning. He typically drinks about 4 beers daily. He admits that he has not been quite compliant with his medication and his medication ran out about 2 months ago. 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 Patient was seen here and admitted in April 2020 for atrial fibrillation, hypomagnesemia and CHF. He was placed on Cardizem drip and admitted into the ICU. He was discharged on metoprolol, Lasix, spironolactone, digoxin and Coumadin. Upon evaluation in the emergency room today patient was found to be in atrial fibrillation with RVR. He was given Cardizem IV and subsequently placed on Cardizem drip. His BNP was found to be elevated however his chest x-ray was unremarkable. 09/06: Patient still in A. fib but RVR has improved. Will start patient on his home medication. Again counseling provided to the patient with importance of better management. Await cardiology input. Anticipate discharge in a.m. (1) Atrial fibrillation with rapid ventricular response Current Visit: Yes Status: Acute Plan to address problem: Patient has been placed on Cardizem drip. We will titrate according to protocol. We will request cardiology evaluation. (2) CHF (congestive heart failure) Current Visit: No Status: Acute Plan to address problem: We will place patient on diuretics. Will monitor inputs and outputs and also monitor daily weights. Echocardiogram done in April 2020 shows EF of 30 to 35%. (3) Noncompliance with medication regimen Current Visit: Yes Status: Acute Plan to address problem: Compliance with medication is encouraged. Patient verbalized understanding. (4) Alcohol abuse Current Visit: Yes Status: Acute Plan to address problem: Patient has been placed on CIWA protocol. We will monitor closely. (5) DVT prophylaxis Current Visit: Yes Status: Acute Plan to address problem: Patient placed on subcutaneous Lovenox. (6) Full code status Current Visit: Yes Status: Acute (7) Hypomagnesemia Current Visit: Yes Status: Acute History Interval history: Patient seen and examined resting comfortably no new complaints. Hospitalist Physical - Physical exam Narrative exam: VITAL SIGNS: Reviewed. GENERAL: The patient appears normally developed, Vital signs as documented. HEAD: No signs of head trauma. EYES: Pupils are equal. Extraocular motions intact. EARS: Hearing grossly intact. MOUTH: Oropharynx is normal. NECK: No adenopathy, no JVD. CHEST: Chest with clear breath sounds bilaterally. No wheezes, rales, or rhonchi. CARDIAC: Regular rate and rhythm. S1 and S2, without murmurs, gallops, or rubs. VASCULAR: No Edema. Peripheral pulses normal and equal in all extremities. ABDOMEN: Soft, non tender and non distended. No rebound or guarding, and no masses palpated. Bowel Sounds normal. MUSCULOSKELETAL: Good range of motion of all major joints. Extremities without clubbing, cyanosis or edema. NEUROLOGIC EXAM: Alert and oriented x 3 No focal sensory or strength deficits. Speech normal. Follows commands. PSYCHIATRIC: Mood normal. SKIN: detail exam as documented in skin assessment - Constitutional Vitals: Temp Pulse Resp BP Pulse Ox 99.1 F 101 H 16 142/80 95 09/05/20 17:31 09/06/20 08:30 09/06/20 11:18 09/06/20 08:30 09/06/20 08:30 General appearance: Present: no acute distress, well-nourished HEART Score - HEART Score Troponin: Troponin T < 0.010 ng/mL (0.00-0.029) 09/05/20 23:31 Results - Labs CBC & Chem 7: 09/06/20 03:51 09/06/20 03:51 Labs: Laboratory Last Values WBC 5.9 K/mm3 (4.5-11.0) 09/06/20 03:51 RBC 4.95 M/mm3 (3.65-5.03) 09/06/20 03:51 Hgb 16.1 gm/dl (11.8-15.2) H 09/06/20 03:51 Hct 47.9 % (35.5-45.6) H 09/06/20 03:51 MCV 97 fl (84-94) H 09/06/20 03:51 MCH 33 pg (28-32) H 09/06/20 03:51 MCHC 34 % (32-34) 09/06/20 03:51 RDW 14.8 % (13.2-15.2) 09/06/20 03:51 Plt Count 100 K/mm3 (140-440) L 09/06/20 03:51 Lymph % (Auto) 17.3 % (13.4-35.0) 09/05/20 18:04 Hood % (Auto) [employer] To [employer] Sales Representative 09/06/20 03:51 Eos % (Auto) 0.8 % (0.0-4.3) 09/05/20 18:04 Baso % (Auto) [employer] Representative 09/06/20 03:51 Lymph # (Auto) 1.0 K/mm3 (1.2-5.4) L 09/05/20 18:04 Hood # (Auto) 0.7 K/mm3 (0.0-0.8) 09/05/20 18:04 Eos # (Auto) 0.0 K/mm3 (0.0-0.4) 09/05/20 18:04 Baso # (Auto) 0.0 K/mm3 (0.0-0.1) 09/05/20 18:04 Add Manual Diff Complete 09/06/20 03:51 Total Counted 100 09/06/20 03:51 Seg Neutrophils % 68.0 % (40.0-70.0) 09/05/20 18:04 Seg Neuts % (Manual) 74.0 % (40.0-70.0) H 09/06/20 03:51 Band Neutrophils % 0 % 09/06/20 03:51 Lymphocytes % (Manual) 22.0 % (13.4-35.0) 09/06/20 03:51 Reactive Lymphs % (Man) 0 % 09/06/20 03:51 Monocytes % (Manual) 4.0 % (0.0-7.3) 09/06/20 03:51 Eosinophils % (Manual) 0 % (0.0-4.3) 09/06/20 03:51 Basophils % (Manual) 0 % (0.0-1.8) 09/06/20 03:51 Metamyelocytes % 0 % 09/06/20 03:51 Myelocytes % 0 % 09/06/20 03:51 Promyelocytes % 0 % 09/06/20 03:51 Blast Cells % 0 % 09/06/20 03:51 Nucleated RBC % Not Reportable 09/06/20 03:51 Seg Neutrophils # 3.9 K/mm3 (1.8-7.7) 09/05/20 18:04 Seg Neutrophils # Man 4.4 K/mm3 (1.8-7.7) 09/06/20 03:51 Band Neutrophils # 0.0 K/mm3 09/06/20 03:51 Lymphocytes # (Manual) 1.3 K/mm3 (1.2-5.4) 09/06/20 03:51 Abs React Lymphs (Man) 0.0 K/mm3 09/06/20 03:51 Monocytes # (Manual) 0.2 K/mm3 (0.0-0.8) 09/06/20 03:51 Eosinophils # (Manual) 0.0 K/mm3 (0.0-0.4) 09/06/20 03:51 Basophils # (Manual) 0.0 K/mm3 (0.0-0.1) 09/06/20 03:51 Metamyelocytes # 0.0 K/mm3 09/06/20 03:51 Myelocytes # 0.0 K/mm3 09/06/20 03:51 Promyelocytes # 0.0 K/mm3 09/06/20 03:51 Blast Cells # 0.0 K/mm3 09/06/20 03:51 WBC Morphology Not Reportable 09/06/20 03:51 Hypersegmented Neuts Not Reportable 09/06/20 03:51 Hyposegmented Neuts Not Reportable 09/06/20 03:51 Hypogranular Neuts Not Reportable 09/06/20 03:51 Smudge Cells Not Reportable 09/06/20 03:51 Toxic Granulation Not Reportable 09/06/20 03:51 Toxic Vacuolation Not Reportable 09/06/20 03:51 Dohle Bodies Not Reportable 09/06/20 03:51 Pelger-Huet Anomaly Not Reportable 09/06/20 03:51 Yasmin Rods Not Reportable 09/06/20 03:51 Platelet Estimate Consistent w auto 09/06/20 03:51 Clumped Platelets Not Reportable 09/06/20 03:51 Plt Clumps, EDTA Not Reportable 09/06/20 03:51 Large Platelets Not Reportable 09/06/20 03:51 Giant Platelets Not Reportable 09/06/20 03:51 Platelet Satelliting Not Reportable 09/06/20 03:51 Plt Morphology Comment Not Reportable 09/06/20 03:51 RBC Morphology Not Reportable 09/06/20 03:51 Dimorphic RBCs Not Reportable 09/06/20 03:51 Polychromasia Not Reportable 09/06/20 03:51 Hypochromasia Not Reportable 09/06/20 03:51 Poikilocytosis Not Reportable 09/06/20 03:51 Anisocytosis Not Reportable 09/06/20 03:51 Microcytosis Not Reportable 09/06/20 03:51 Macrocytosis Not Reportable 09/06/20 03:51 Spherocytes Not Reportable 09/06/20 03:51 Pappenheimer Bodies Not Reportable 09/06/20 03:51 Sickle Cells Not Reportable 09/06/20 03:51 Target Cells Not Reportable 09/06/20 03:51 Tear Drop Cells Not Reportable 09/06/20 03:51 Ovalocytes Not Reportable 09/06/20 03:51 Helmet Cells Not Reportable 09/06/20 03:51 [place] Bodies Not Reportable 09/06/20 03:51 [place] Rings Not Reportable 09/06/20 03:51 [place] Cells Not Reportable 09/06/20 03:51 Bite Cells Not Reportable 09/06/20 03:51 Crenated Cell Not Reportable 09/06/20 03:51 Elliptocytes Not Reportable 09/06/20 03:51 Acanthocytes (Spur) Not Reportable 09/06/20 03:51 Rouleaux Not Reportable 09/06/20 03:51 Hemoglobin C Crystals Not Reportable 09/06/20 03:51 Schistocytes Not Reportable 09/06/20 03:51 Malaria parasites Not Reportable 09/06/20 03:51 Ki Bodies Not Reportable 09/06/20 03:51 Hem Pathologist Commnt No 09/06/20 03:51 PT 15.0 Sec. (12.2-14.9) H 09/06/20 03:51 INR 1.16 (0.87-1.13) H 09/06/20 03:51 APTT 28.2 Sec. (24.2-36.6) 09/05/20 18:04 Sodium 134 mmol/L (137-145) L 09/06/20 03:51 Potassium 4.0 mmol/L (3.6-5.0) 09/06/20 03:51 Chloride 97.5 mmol/L (98-107) L 09/06/20 03:51 Carbon Dioxide 25 mmol/L (22-30) 09/06/20 03:51 Anion Gap 16 mmol/L 09/06/20 03:51 BUN 13 mg/dL (9-20) 09/06/20 03:51 Creatinine 0.8 mg/dL (0.8-1.3) 09/06/20 03:51 Estimated GFR > 60 ml/min 09/06/20 03:51 BUN/Creatinine Ratio 16 % 09/06/20 03:51 Glucose 87 mg/dL (75-100) 09/06/20 03:51 Calcium 9.0 mg/dL (8.4-10.2) 09/06/20 03:51 Magnesium 1.50 mg/dL (1.7-2.3) L 09/06/20 04:04 Total Bilirubin 0.50 mg/dL (0.1-1.2) 09/05/20 18:04 AST 26 units/L (5-40) 09/05/20 18:04 ALT 12 units/L (7-56) 09/05/20 18:04 Alkaline Phosphatase 106 units/L (35-129) 09/05/20 18:04 Troponin T < 0.010 ng/mL (0.00-0.029) 09/05/20 23:31 NT-Pro-B Natriuret Pep 2644 pg/mL (0-900) H 09/05/20 18:04 Total Protein 9.0 g/dL (6.3-8.2) H 09/05/20 18:04 Albumin 3.2 g/dL (3.9-5) L 09/05/20 18:04 Albumin/Globulin Ratio 0.6 % 09/05/20 18:04 TSH 1.650 mlU/mL (0.270-4.200) 09/05/20 18:11 Free T4 1.19 ng/dL (0.76-1.46) 09/05/20 18:11 Digoxin 0.3 ng/mL (0.9-2.0) L 09/05/20 18:04 Plasma/Serum Alcohol 0.07 % (0-0.07) 09/05/20 18:04 Jett/IV: IV Catheter Type [Left INT / Saline Lock Antecubital] Active Medications - Current Medications Current Medications: Generic Name Dose Route Start Last Admin Trade Name Freq PRN Reason Stop Dose Admin Acetaminophen 650 mg 09/05/20 22:32 09/06/20 11:15 Tylenol PO 650 mg Q6H PRN Administration Pain MILD(1-3)/Fever >100.5/GILLESPIE Digoxin 0.25 mg 09/06/20 17:00 Lanoxin PO DAILY@1700 LUZMARIA Furosemide 20 mg 09/06/20 06:00 09/06/20 06:23 Lasix IV 20 mg 0600,1800 LUZMARIA Administration Diltiazem HCl 100 mg in 100 mls @ 5 mls/hr 09/06/20 02:00 09/06/20 07:33 Cardizem/D5w 100mg/100ml IV 15 mg/hr TITR LUZMARIA 15 mls/hr Administration Protocol 5 MG/HR Magnesium Sulfate 2 gm/ Sodium 54 mls @ 52 mls/hr 09/06/20 11:22 Chloride IV 09/06/20 12:24 ONCE ONE Magnesium Sulfate 2 gm in 50 mls @ 50 mls/hr 09/06/20 12:00 Magnesium Sulfate 2gm/50ml IV ONCE LUZMARIA Lorazepam 2 mg 09/05/20 22:09 Ativan PO Q1HR PRN CIWA-Ar 8-15 Lorazepam 2 mg 09/05/20 22:09 09/05/20 23:00 Ativan IV 2 mg Q1HR PRN Administration CIWA-Ar 8-15 Lorazepam 4 mg 09/05/20 22:09 Ativan IV Q1HR PRN CIWA-Ar 16-25 Magnesium Hydroxide 30 ml 09/05/20 22:32 Milk Of Magnesia PO Q4H PRN Constipation Morphine Sulfate 2 mg 09/05/20 22:32 09/06/20 11:18 Morphine IV 2 mg Q5MIN PRN Administration Chest Pain unrelieved by NTG Ondansetron HCl 4 mg 09/05/20 22:32 09/06/20 11:18 Zofran IV 4 mg Q8H PRN Administration Nausea And Vomiting Sodium Chloride 10 ml 09/06/20 10:00 Sodium Chloride Flush Syringe 10 Ml IV BID [facility] Sodium Chloride 10 ml 09/05/20 22:32 Sodium Chloride Flush Syringe 10 Ml IV PRN PRN LINE FLUSH
[2020-09-06] MEDS ORDERED: MAGNESIUM SULFATE 2 GM/50 ML BAG IV SCH (12:00)
--- NOTE | 2020-09-06 14:02 | Consultation ---
History of Present Illness Consult date: 09/06/20 Reason for consult: dyspnea, cough, chest pain History of present illness: 60-year-old male with known history of atrial fibrillation, CHF with ejection fraction of 30 to 35%, hypertension, alcohol abuse and tobacco abuse presented to the emergency room today with shortness of breath and chest pain which has been ongoing for about 3 days. Patient is known to be noncompliant with his medication. He has had some nausea but no vomiting. He has had some mild swelling in his lower extremities. Patient is known to drink alcohol on a daily basis and his last drink was this morning. He typically drinks about 4 beers daily. He admits that he has not been quite compliant with his medication and his medication ran out about 2 months ago. He has not followed up with any primary care physician or university professor because of insurance issues.Patient smokes. Counseled to stop smoking. Patient was seen here and admitted in April 2020 for atrial fibrillation, hypomagnesemia and CHF. He was placed on Cardizem drip and admitted into the ICU. He was discharged on metoprolol, Lasix, spironolactone, digoxin and Coumadin. Upon evaluation in the emergency room today patient was found to be in atrial fibrillation with RVR. He was given Cardizem IV and subsequently placed on Cardizem drip. His BNP was found to be elevated however his chest x-ray was unremarkable. Patient awake. Resting on room air. O2 saturation 98%. Past History Past Medical History: atrial fib, heart failure (EF 30-35%), hypertension, other (Asthma, Non compliance with medications) Past Surgical History: No surgical history Social history: smoking (Current daily smoker), alcohol abuse Family history: no significant family history Medications and Allergies Allergies Allergy/AdvReac Type Severity Reaction Status Date / Time No Known Allergies Allergy Unverified 04/26/20 08:51 Home Medications Medication Instructions Recorded Confirmed Last Taken Type Digoxin [Lanoxin] 0.25 mg PO DAILY@1700 #30 tablet 04/29/20 Unknown Rx Furosemide [Lasix TAB] 40 mg PO QDAY #30 tablet 04/29/20 Unknown Rx Magnesium Oxide [Mag-Ox] 400 mg PO BID 7 Days #14 tablet 04/29/20 Unknown Rx Metoprolol [Lopressor TAB] 50 mg PO BID #60 tablet 04/29/20 Unknown Rx Spironolactone [Aldactone] 25 mg PO QDAY #30 tablet 04/29/20 Unknown Rx Warfarin [Coumadin] 7.5 mg PO DAILY@1700 #30 tablet 04/29/20 Unknown Rx lisinopriL [Zestril TAB] 5 mg PO QDAY #30 tablet 04/29/20 Unknown Rx Active Meds: Active Medications Acetaminophen (Tylenol) 650 mg PO Q6H PRN PRN Reason: Pain MILD(1-3)/Fever >100.5/GILLESPIE Last Admin: 09/06/20 11:15 Dose: 650 mg Documented by: Digoxin (Lanoxin) 0.25 mg PO DAILY@1700 [facility] Furosemide (Lasix) 20 mg IV 0600,1800 [facility] Last Admin: 09/06/20 06:23 Dose: 20 mg Documented by: Diltiazem HCl (Cardizem/D5w 100mg/100ml) 100 mg in 100 mls @ 5 mls/hr IV TITR [facility]; Protocol Last Admin: 09/06/20 07:33 Dose: 15 mg/hr, 15 mls/hr Documented by: Magnesium Sulfate (Magnesium Sulfate 2gm/50ml) 2 gm in 50 mls @ 50 mls/hr IV ONCE [facility] Lisinopril (Zestril) 5 mg PO QDAY [facility] Lorazepam (Ativan) 2 mg PO Q1HR PRN PRN Reason: CIWA-Ar 8-15 Lorazepam (Ativan) 2 mg IV Q1HR PRN PRN Reason: CIWA-Ar 8-15 Last Admin: 09/05/20 23:00 Dose: 2 mg Documented by: Lorazepam (Ativan) 4 mg IV Q1HR PRN PRN Reason: CIWA-Ar 16-25 Magnesium Hydroxide (Milk Of Magnesia) 30 ml PO Q4H PRN PRN Reason: Constipation Magnesium Oxide (Mag-Ox) 400 mg PO BID ON LICENSE OF [facility] Metoprolol Tartrate (Metoprolol) 50 mg PO BID ON LICENSE OF [facility] Morphine Sulfate (Morphine) 2 mg IV Q5MIN PRN PRN Reason: Chest Pain unrelieved by NTG Last Admin: 09/06/20 11:18 Dose: 2 mg Documented by: Ondansetron HCl (Zofran) 4 mg IV Q8H PRN PRN Reason: Nausea And Vomiting Last Admin: 09/06/20 11:18 Dose: 4 mg Documented by: Sodium Chloride (Sodium Chloride Flush Syringe 10 Ml) 10 ml IV BID ON LICENSE OF [facility] Last Admin: 09/06/20 12:38 Dose: 10 ml Documented by: Sodium Chloride (Sodium Chloride Flush Syringe 10 Ml) 10 ml IV PRN PRN PRN Reason: LINE FLUSH Spironolactone (Aldactone) 25 mg PO QDAY ON LICENSE OF [facility] Warfarin Sodium (Coumadin) 7.5 mg PO DAILY@1700 [facility]; Protocol Review of Systems All systems: negative Physical Examination Vital signs: Vital Signs Temp Pulse Resp BP Pulse Ox 99.1 F 132 H 24 148/95 97 09/05/20 17:31 09/05/20 17:31 09/05/20 17:31 09/05/20 17:31 09/05/20 17:31 General appearance: alert, appears uncomfortable Eyes: non-icteric Neck: supple, no JVD Effort: mildly labored Ascultation: Bilateral: other (Prolonged expiratory phase.) Cardiovascular: irregular rhythm Gastrointestinal: normoactive bowel sounds, soft, non-tender Integumentary: normal Extremities: no cyanosis, no edema Musculoskeletal: no deformities Gait: other (Resting in bed.) normal mental status, non-focal exam, pupils equal and round, CN II-XII normal depressed Results - Laboratory Findings CBC and BMP: 09/06/20 03:51 09/06/20 03:51 PT/INR, D-dimer PT 15.0 Sec. (12.2-14.9) H 09/06/20 03:51 INR 1.16 (0.87-1.13) H 09/06/20 03:51 Abnormal lab findings: Abnormal Labs 09/05/20 09/05/20 09/05/20 18:04 18:04 18:04 Hgb 16.1 H Hct 47.6 H MCV 97 H MCH 33 H Plt Count 108 L Patrick % (Auto) 13.0 H Lymph # (Auto) 1.0 L Seg Neuts % (Manual) PT INR Sodium 136 L Chloride Carbon Dioxide 20 L Magnesium NT-Pro-B Natriuret Pep Total Protein 9.0 H Albumin 3.2 L Digoxin 0.3 L 09/05/20 09/05/20 09/06/20 18:04 18:04 03:51 Hgb 16.1 H Hct 47.9 H MCV 97 H MCH 33 H Plt Count 100 L Patrick % (Auto) Lymph # (Auto) Seg Neuts % (Manual) 74.0 H PT INR Sodium Chloride Carbon Dioxide Magnesium 1.50 L NT-Pro-B Natriuret Pep 2644 H Total Protein Albumin Digoxin 09/06/20 09/06/20 09/06/20 03:51 03:51 04:04 Hgb Hct MCV MCH Plt Count Patrick % (Auto) Lymph # (Auto) Seg Neuts % (Manual) PT 15.0 H INR 1.16 H Sodium 134 L Chloride 97.5 L Carbon Dioxide Magnesium 1.50 L NT-Pro-B Natriuret Pep Total Protein Albumin Digoxin - Diagnostic Findings Chest x-ray: report reviewed (Reported no acute findings.), image reviewed Assessment and Plan 60-year-old male with known history of atrial fibrillation, CHF with ejection fraction of 30 to 35%, hypertension, alcohol abuse and tobacco abuse presented to the emergency room today with shortness of breath and chest pain which has been ongoing for about 3 days. Patient is known to be noncompliant with his medication. He has had some nausea but no vomiting. He has had some mild swelling in his lower extremities. Patient is known to drink alcohol on a daily basis and his last drink was this morning. He typically drinks about 4 beers daily. He admits that he has not been quite compliant with his medication and his medication ran out about 2 months ago. He has not followed up with any primary care physician or university professor because of insurance issues.Patient smokes. Counseled to stop smoking. Patient was seen here and admitted in April 2020 for atrial fibrillation, hypomagnesemia and CHF. He was placed on Cardizem drip and admitted into the ICU. He was discharged on metoprolol, Lasix, spironolactone, digoxin and Coumadin. Upon evaluation in the emergency room today patient was found to be in atrial fibrillation with RVR. He was given Cardizem IV and subsequently placed on Cardizem drip. His BNP was found to be elevated however his chest x-ray was u nremarkable. Patient awake. Resting on room air. O2 saturation 98%. - Patient Problems (1) Atrial fibrillation with rapid ventricular response Current Visit: Yes Status: Acute Plan to address problem: Patient is on digoxin and coumsdin. Management as per cardiology. (2) Chest pain Current Visit: Yes Status: Acute Plan to address problem: Management as per cardiology. (3) Shortness of breath Current Visit: Yes Status: Acute Plan to address problem: Could be related to his heart condition. Counselled to stop smoking. PFTs as out patient. ABGs on room air. (4) Alcohol abuse Current Visit: Yes Status: Acute Plan to address problem: Management as per primary care. (5) Hypomagnesemia Current Visit: Yes Status: Acute Plan to address problem: Supplementing Magnesium.
[2020-09-06] MEDS ORDERED: LORazepam 2 MG/ML VIAL ONE (15:01)
[2020-09-06] MEDS: LORazepam 2 MG/ML VIAL IV PRN ×2 (15:09→21:15)
--- NOTE | 2020-09-06 18:19 | Consultation ---
History of Present Illness Consult date: 09/06/20 Consult reason: atrial fibrillation History of present illness: The patient is a 60-year-old Croatian-speaking male, history taken is difficult due to language barrier. He was ostensibly sent to the emergency room from his PCPs office for chest pain and shortness of breath. He was evaluated in the emergency room and referred for admission. Cardiology consultation was requested for further evaluation of the finding of atrial fibrillation. Notably, this patient has chronic atrial fibrillation. He was in this hospital 3 months ago when we first noted atrial fibrillation of uncertain duration, likely chronic. He underwent extensive noninvasive evaluation at that time. An echocardiogram demonstrated a cardiomyopathy with ejection fraction 30 to 35%, with mild mitral stenosis and associated marked dilatation and left atrial size. We recommended a rate control strategy for the atrial fibrillation with metoprolol and digoxin, and initiated warfarin oral anticoagulation. A predischarge Lexiscan stress test was negative. On this presentation, the patient is reported to be noncompliant with the medications ordered on his prior discharge, including his warfarin anticoagulation. On this presentation, the INR was 1.16, and digoxin was 0.3. Pertinent comorbidities include chronic alcohol abuse. Currently, the patient is comfortable in his room in the emergency room, no chest pain, no shortness of breath and no acute distress. His atrial fibrillation rate control is much improved with initial therapy in the hospital. Past History Past Medical History: atrial fib, hypertension, other (Asthma, Non compliance with medications) Past Surgical History: No surgical history Social history: smoking (Current daily smoker), alcohol abuse Family history: no significant family history Medications and Allergies Allergies Allergy/AdvReac Type Severity Reaction Status Date / Time No Known Allergies Allergy Unverified 04/26/20 08:51 Home Medications Medication Instructions Recorded Confirmed Last Taken Type Digoxin [Lanoxin] 0.25 mg PO DAILY@1700 #30 tablet 04/29/20 Unknown Rx Furosemide [Lasix TAB] 40 mg PO QDAY #30 tablet 04/29/20 Unknown Rx Magnesium Oxide [Mag-Ox] 400 mg PO BID 7 Days #14 tablet 04/29/20 Unknown Rx Metoprolol [Lopressor TAB] 50 mg PO BID #60 tablet 04/29/20 Unknown Rx Spironolactone [Aldactone] 25 mg PO QDAY #30 tablet 04/29/20 Unknown Rx Warfarin [Coumadin] 7.5 mg PO DAILY@1700 #30 tablet 04/29/20 Unknown Rx lisinopriL [Zestril TAB] 5 mg PO QDAY #30 tablet 04/29/20 Unknown Rx Active Meds: Active Medications Acetaminophen (Tylenol) 650 mg PO Q6H PRN PRN Reason: Pain MILD(1-3)/Fever >100.5/GILLESPIE Last Admin: 09/06/20 11:15 Dose: 650 mg Documented by: Digoxin (Lanoxin) 0.25 mg PO DAILY@1700 [facility] Furosemide (Lasix) 20 mg IV 0600,1800 [facility] Last Admin: 09/06/20 06:23 Dose: 20 mg Documented by: Diltiazem HCl (Cardizem/D5w 100mg/100ml) 100 mg in 100 mls @ 5 mls/hr IV TITR [facility]; Protocol Last Titration: 09/06/20 17:11 Dose: 5 mg/hr, 5 mls/hr Documented by: Magnesium Sulfate (Magnesium Sulfate 2gm/50ml) 2 gm in 50 mls @ 50 mls/hr IV ONCE [facility] Lisinopril (Zestril) 5 mg PO QDAY [facility] Lorazepam (Ativan) 2 mg PO Q1HR PRN PRN Reason: CIWA-Ar 8-15 Lorazepam (Ativan) 2 mg IV Q1HR PRN PRN Reason: CIWA-Ar 8-15 Last Admin: 09/06/20 15:09 Dose: 2 mg Documented by: Lorazepam (Ativan) 4 mg IV Q1HR PRN PRN Reason: CIWA-Ar 16-25 Magnesium Hydroxide (Milk Of Magnesia) 30 ml PO Q4H PRN PRN Reason: Constipation Magnesium Oxide (Mag-Ox) 400 mg PO BID [facility] Metoprolol Tartrate (Metoprolol) 50 mg PO BID [facility] Morphine Sulfate (Morphine) 2 mg IV Q5MIN PRN PRN Reason: Chest Pain unrelieved by NTG Last Admin: 09/06/20 11:18 Dose: 2 mg Documented by: Ondansetron HCl (Zofran) 4 mg IV Q8H PRN PRN Reason: Nausea And Vomiting Last Admin: 09/06/20 11:18 Dose: 4 mg Documented by: Sodium Chloride (Sodium Chloride Flush Syringe 10 Ml) 10 ml IV BID [facility] Last Admin: 09/06/20 12:38 Dose: 10 ml Documented by: Sodium Chloride (Sodium Chloride Flush Syringe 10 Ml) 10 ml IV PRN PRN PRN Reason: LINE FLUSH Spironolactone (Aldactone) 25 mg PO QDAY [facility] Warfarin Sodium (Coumadin) 7.5 mg PO DAILY@1700 [facility]; Protocol Review of Systems Cardiovascular: chest pain, palpitations, rapid/irregular heart beat, shortness of breath, no orthopnea, no edema, no syncope, no lightheadedness Physical Examination Vital Signs Temp Pulse Resp BP Pulse Ox 99.1 F 132 H 24 148/95 97 09/05/20 17:31 09/05/20 17:31 09/05/20 17:31 09/05/20 17:31 09/05/20 17:31 General appearance: no acute distress HEENT: Positive: PERRL Neck: Positive: neck supple Cardiac: Positive: irregularly irregular Lungs: Positive: Decreased Breath Sounds Neuro: Positive: Grossly Intact Abdomen: Positive: Soft Male genitourinary: Positive: deferred Skin: Positive: Clear Extremities: Absent: edema Results 09/06/20 03:51 09/06/20 03:51 Cardiac Enzymes 09/05/20 Range/Units 18:04 AST 26 (5-40) units/L Coagulation 09/05/20 09/06/20 Range/Units 18:04 03:51 PT 14.5 15.0 H (12.2-14.9) Sec. INR 1.11 1.16 H (0.87-1.13) APTT 28.2 (24.2-36.6) Sec. CBC 09/05/20 09/06/20 Range/Units 18:04 03:51 WBC 5.7 5.9 (4.5-11.0) K/mm3 RBC 4.88 4.95 (3.65-5.03) M/mm3 Hgb 16.1 H 16.1 H (11.8-15.2) gm/dl Hct 47.6 H 47.9 H (35.5-45.6) % Plt Count 108 L 100 L (140-440) K/mm3 Lymph # (Auto) 1.0 L (1.2-5.4) K/mm3 [place] # (Auto) 0.7 (0.0-0.8) K/mm3 Eos # (Auto) 0.0 (0.0-0.4) K/mm3 Baso # (Auto) 0.0 (0.0-0.1) K/mm3 Comprehensive Metabolic Panel 09/05/20 09/06/20 Range/Units 18:04 03:51 Sodium 136 L 134 L (137-145) mmol/L Potassium 4.5 4.0 (3.6-5.0) mmol/L Chloride 100.5 97.5 L (98-107) mmol/L Carbon Dioxide 20 L 25 (22-30) mmol/L BUN 11 13 (9-20) mg/dL Creatinine 0.9 0.8 (0.8-1.3) mg/dL Glucose 79 87 (75-100) mg/dL Calcium 9.0 9.0 (8.4-10.2) mg/dL AST 26 (5-40) units/L ALT 12 (7-56) units/L Alkaline Phosphatase 106 (35-129) units/L Total Protein 9.0 H (6.3-8.2) g/dL Albumin 3.2 L (3.9-5) g/dL EKG interpretations - Telemetry EKG Rhythm: Atrial Fibrillation Assessment and Plan - Patient Problems (1) Chronic atrial fibrillation Current Visit: Yes Status: Acute Plan to address problem: Patient has a likely permanent atrial fibrillation and is recommended for a rate control strategy on chronic oral anticoagulation. We will use metoprolol and digoxin for rate control, and because of his underlying mitral stenosis he will need to be reinitiated on warfarin anticoagulation. (2) Dilated cardiomyopathy Current Visit: Yes Status: Acute Plan to address problem: Patient has a dilated cardiomyopathy with left ventricular ejection fraction 30 to 35%, presumed a nonischemic cardiomyopathy based on the normal perfusion s tudy on his prior admission 3 months ago. We will continue guideline directed medical therapy including afterload agents, spironolactone and beta-blockers.
[2020-09-06] MEDS: WARFARIN 7.5 MG TAB PO SCH (18:31)
[2020-09-06] MEDS: DIGOXIN 0.25 MG TAB PO SCH (18:31)
[2020-09-06] MEDS: METOPROLOL TARTRATE 50 MG TAB PO SCH (21:14)
[2020-09-07] MEDS: LORazepam 2 MG/ML VIAL IV PRN ×4 (02:37→14:16)
[2020-09-07] MEDS: MAGNESIUM OXIDE 400 MG TAB PO SCH ×3 (02:37→21:35)
[2020-09-07] MEDS: FUROSEMIDE 20 MG/2 ML INJ IV SCH ×3 (02:39→18:51)
[2020-09-07 06:59] LABS: INR 1.1 (0.87-1.13)
[2020-09-07] MEDS ORDERED: MAGNESIUM SULFATE 2 GM/50 ML BAG IV SCH (09:00)
--- NOTE | 2020-09-07 09:14 | Progress Note ---
Assessment and Plan Persistent atrial fibrillation - rate controlled Cardiomyopathy, non-ischemia MPI 05/2020 - No ischemia Echo 05/2020 - LVEF 35%, mild MS Alcohol abuse and withdrawal Non-compliance Recommendations: Continue metoprolol and digoxin for rate control Change IV diltiazem to po Continue warfarin with a target INR 2-3 - pharmacy to dose CIWA protocol Subjective Date of service: 09/07/20 Principal diagnosis: Atrial fibrillation Interval history: Patient is altered this morning. Per nurse, patient is going through alcohol withdrawal. Tele showing rate controlled afib Objective Vital Signs Temp Pulse Resp BP BP Pulse Ox 09/07/20 05:06 98.5 F 88 18 140/72 93 09/07/20 05:04 98.5 F 88 18 140/72 93 09/07/20 03:42 98.5 F 88 18 136/87 93 09/07/20 00:02 66 09/06/20 23:31 97.0 F L 66 18 98/65 95 09/06/20 21:14 80 140/89 09/06/20 20:47 97.4 F L 84 18 150/90 99 09/06/20 20:20 82 25 H 139/80 09/06/20 20:11 82 26 H 135/89 94 09/06/20 20:01 88 24 149/91 95 09/06/20 19:51 92 H 28 H 135/89 97 09/06/20 19:41 101 H 21 140/89 93 09/06/20 19:30 70 19 140/89 95 09/06/20 19:21 74 17 114/65 95 09/06/20 19:13 71 17 140/89 92 09/06/20 19:02 73 18 108/64 95 09/06/20 19:00 80 19 140/89 96 09/06/20 18:45 77 20 129/82 94 09/06/20 18:31 100 H 124/68 09/06/20 18:30 85 20 127/97 09/06/20 18:15 75 18 108/64 93 09/06/20 18:00 83 16 116/72 92 09/06/20 17:45 76 18 108/64 91 09/06/20 17:31 71 19 110/66 93 09/06/20 17:15 76 20 139/86 92 09/06/20 17:06 82 16 140/72 97 09/06/20 15:31 95 H 26 H 123/93 96 09/06/20 15:15 79 24 126/86 98 09/06/20 15:00 90 27 H 125/81 96 09/06/20 14:45 81 28 H 124/76 97 09/06/20 14:31 82 24 118/70 98 09/06/20 14:15 73 19 119/73 92 09/06/20 14:01 76 19 119/76 99 09/06/20 13:45 85 18 118/82 95 09/06/20 13:30 91 H 25 H 118/82 94 09/06/20 13:15 85 22 111/75 94 09/06/20 13:00 86 22 111/75 92 09/06/20 12:45 85 28 H 124/73 95 09/06/20 12:31 102 H 23 124/73 94 09/06/20 12:15 71 19 132/77 90 09/06/20 12:00 97 H 25 H 132/77 96 09/06/20 11:48 18 09/06/20 11:45 83 24 125/83 90 09/06/20 11:30 101 H 27 H 130/85 93 09/06/20 11:18 16 09/06/20 11:15 101 H 14 129/79 95 09/06/20 11:00 78 21 123/72 94 09/06/20 10:45 88 23 136/79 95 09/06/20 10:30 96 H 30 H 133/88 95 09/06/20 10:15 103 H 32 H 119/97 95 09/06/20 10:00 98 H 29 H 134/85 95 09/06/20 09:45 88 22 150/89 95 09/06/20 09:31 124 H 19 150/89 95 09/06/20 09:15 109 H 26 H 118/82 91 - Physical Examination HEENT: Positive: PERRL Neck: Positive: neck supple Cardiac: Positive: irregularly irregular Lungs: Positive: Normal Exam Neuro: Positive: Grossly Intact Abdomen: Positive: Soft Skin: Positive: Clear Extremities: Absent: edema - Labs and Meds Coagulation 09/07/20 Range/Units 06:11 PT 14.4 (12.2-14.9) Sec. INR 1.10 (0.87-1.13)
[2020-09-07] MEDS: dilTIAZem 30 MG TAB PO SCH ×2 (10:45→18:51)
[2020-09-07] MEDS: LISINOPRIL 5 MG TAB PO SCH (10:45)
[2020-09-07] MEDS: SPIRONOLACTONE 25 MG TAB PO SCH (10:45)
[2020-09-07] MEDS: METOPROLOL TARTRATE 50 MG TAB PO SCH ×2 (10:46→21:35)
[2020-09-07] MEDS ORDERED: MAGNESIUM SULFATE 4 GM/100 ML BAG IV ONE (11:33)
--- NOTE | 2020-09-07 11:34 | Progress Note ---
Assessment and Plan 1) Atrial fibrillation with rapid ventricular response Current Visit: Yes Status: Acute Plan to address problem: Cardizem drip dc and changed to po per certified nutritionist Cardiology consult-recommended Continue metoprolol and digoxin for rate control Continue warfarin with a target INR 2-3 - pharmacy to dose (2) CHF (congestive heart failure) Current Visit: No Status: Acute Plan to address problem: Continue cardioprotective measure, ASA, diuretics and statin monitor I/O and monitor daily weights. Echocardiogram done in April 2020 shows EF of 30 to 35%. (3) Noncompliance with medication regimen Current Visit: Yes Status: Acute Plan to address problem: Compliance with medication is encouraged. Patient verbalized understanding. (4) Alcohol abuse Current Visit: Yes Status: Acute Plan to address problem: Discussed alcohol use cessation Continue CIWA protocol. Safety, fall and aspiration precaution (5) DVT prophylaxis Current Visit: Yes Status: Acute Plan to address problem: Patient placed on subcutaneous Lovenox. (6) Full code status Current Visit: Yes Status: Acute (7) Hypomagnesemia-replete PRN Current Visit: Yes Status: Acute Replete magnisium Monitor electrolytes Subjective Date of service: 09/07/20 Principal diagnosis: Atrial fibrillation Interval history: patient seen at bedside. reviewed lab, mar, and v/s Reviewed specialist note Continue metoprolol and digoxin for rate control Change diltiazem to po Continue warfarin with a target INR 2-3 Objective - Constitutional Vitals: Vital Signs - 12hr 09/06/20 09/07/20 09/07/20 23:31 00:02 03:42 Temperature 97.0 F L 98.5 F Pulse Rate 66 66 88 Respiratory 18 18 Rate Blood Pressure 98/65 136/87 Blood Pressure [Left] O2 Sat by Pulse 95 93 Oximetry 09/07/20 09/07/20 09/07/20 05:04 05:06 09:24 Temperature 98.5 F 98.5 F 97.4 F L Pulse Rate 88 88 76 Respiratory 18 18 20 Rate Blood Pressure 150/100 Blood Pressure 140/72 140/72 [Left] O2 Sat by Pulse 93 93 94 Oximetry General appearance: Present: no acute distress, well-nourished - EENT Eyes: PERRL, EOM intact ENT: hearing intact, clear oral mucosa Ears: bilateral: normal - Neck Neck: supple, normal ROM - Respiratory Respiratory effort: normal Respiratory: bilateral: CTA - Breasts Breasts: normal - Cardiovascular Heart rate: 74 Rhythm: regular Heart Sounds: Present: S1 & S2. Absent: gallop, rub Extremities: pulses intact, No edema, normal color, Full ROM - Gastrointestinal General gastrointestinal: Present: soft, non-tender, non-distended, normal bowel sounds - Genitourinary Male genitourinary: normal - Integumentary Integumentary: clear, warm, dry - Musculoskeletal Musculoskeletal: 1, strength equal bilaterally - Neurologic Neurologic: moves all extremities - Psychiatric Psychiatric: memory intact, appropriate mood/affect, intact judgment & insight - Allied health notes Allied health notes reviewed: nursing - Labs CBC & Chem 7: 09/06/20 03:51 09/06/20 03:51 Labs: Abnormal lab results 09/07/20 Range/Units 06:11 Magnesium 1.40 L (1.7-2.3) mg/dL HEART Score - HEART Score Troponin: Troponin T < 0.010 ng/mL (0.00-0.029) 09/05/20 23:31
[2020-09-07 17:44] LABS: ABG Base Excess 0.8 mmol/L (-2.0-3.0); ABG HCO3 24.2 mmol/L (20.0-26.0); ABG Methemoglobin 0.5 % (0.0-1.5); ABG Oxygen Saturation 94.6 % (95.0-99.0); ABG PCO2 35.2 mm Hg; ABG PH 7.454 pH Units (7.350-7.450); ABG PO2 69.9 mm Hg (80.0-90.0)
[2020-09-07] MEDS: DIGOXIN 0.25 MG TAB PO SCH (18:25)
[2020-09-07] MEDS: WARFARIN 7.5 MG TAB PO SCH (18:25)
--- NOTE | 2020-09-07 21:16 | Progress Note ---
Assessment and Plan Patient resting on room air. Denies chest pain, shortness of breath or cough at this time. O2 saturation 92% on room air. Patient afebrile. No leukocytosis. ABG on room air. ABG pH 7.454 pH Units (7.350-7.450) H 09/07/20 17:20 ABG pCO2 35.2 mm Hg 09/07/20 17:20 ABG pO2 69.9 mm Hg (80.0-90.0) L 09/07/20 17:20 ABG O2 Saturation 94.6 % (95.0-99.0) L 09/07/20 17:20 - Patient Problems (1) Atrial fibrillation with rapid ventricular response Current Visit: Yes Status: Acute Plan to address problem: Patient is on digoxin and coumsdin. Management as per cardiology. (2) Chest pain Current Visit: Yes Status: Acute Plan to address problem: Management as per cardiology. (3) Shortness of breath Current Visit: Yes Status: Acute Plan to address problem: Could be related to his heart condition. Counselled to stop smoking. PFTs as out patient. (4) Alcohol abuse Current Visit: Yes Status: Acute Plan to address problem: Management as per primary care. (5) Hypomagnesemia Current Visit: Yes Status: Acute Plan to address problem: Supplementing Magnesium. Subjective Date of service: 09/07/20 Principal diagnosis: Atrial fibrillation Interval history: Patient resting on room air. Denies chest pain, shortness of breath or cough at this time. O2 saturation 92% on room air. Patient afebrile. No leukocytosis. ABG on room air ABG pH 7.454 pH Units (7.350-7.450) H 09/07/20 17:20 ABG pCO2 35.2 mm Hg 09/07/20 17:20 ABG pO2 69.9 mm Hg (80.0-90.0) L 09/07/20 17:20 ABG O2 Saturation 94.6 % (95.0-99.0) L 09/07/20 17:20 Objective Vital Signs - 12hr 09/07/20 09/07/20 09/07/20 09:24 11:50 14:00 Temperature 97.4 F L 97.3 F L Pulse Rate 76 81 81 Pulse Rate [ 81 Apical] Respiratory 20 18 Rate Blood Pressure 150/100 138/84 O2 Sat by Pulse 94 93 Oximetry 09/07/20 09/07/20 15:34 19:50 Temperature 97.5 F L 97.7 F Pulse Rate 64 69 Pulse Rate [ Apical] Respiratory 18 18 Rate Blood Pressure 138/87 158/91 O2 Sat by Pulse 100 92 Oximetry Constitutional: no acute distress, alert Eyes: non-icteric Neck: supple, no JVD Effort: mildly labored Ascultation: Bilateral: other (Prolonged expiratory phase.) Cardiovascular: irregular rhythm Gastrointestinal: normoactive bowel sounds, soft, non-tender Integumentary: normal Extremities: no cyanosis, no edema Neurologic: normal mental status, non-focal exam, pupils equal and round, CN II- XII normal Psychiatric: depressed CBC and BMP: 09/06/20 03:51 09/06/20 03:51 ABG, PT/INR, D-dimer: ABG ABG pH 7.454 pH Units (7.350-7.450) H 09/07/20 17:20 ABG pCO2 35.2 mm Hg 09/07/20 17:20 ABG pO2 69.9 mm Hg (80.0-90.0) L 09/07/20 17:20 ABG O2 Saturation 94.6 % (95.0-99.0) L 09/07/20 17:20 PT/INR, D-dimer PT 14.4 Sec. (12.2-14.9) 09/07/20 06:11 INR 1.10 (0.87-1.13) 09/07/20 06:11 Abnormal lab findings: Abnormal Labs 09/05/20 09/05/20 09/05/20 18:04 18:04 18:04 Hgb 16.1 H Hct 47.6 H MCV 97 H MCH 33 H Plt Count 108 L [place] % (Auto) 13.0 H Lymph # (Auto) 1.0 L Seg Neuts % (Manual) PT INR ABG pH ABG pO2 ABG O2 Saturation Oxyhemoglobin Sodium 136 L Chloride Carbon Dioxide 20 L Magnesium NT-Pro-B Natriuret Pep Total Protein 9.0 H Albumin 3.2 L Digoxin 0.3 L 09/05/20 09/05/20 09/06/20 18:04 18:04 03:51 Hgb 16.1 H Hct 47.9 H MCV 97 H MCH 33 H Plt Count 100 L [place] % (Auto) Lymph # (Auto) Seg Neuts % (Manual) 74.0 H PT INR ABG pH ABG pO2 ABG O2 Saturation Oxyhemoglobin Sodium Chloride Carbon Dioxide Magnesium 1.50 L NT-Pro-B Natriuret Pep 2644 H Total Protein Albumin Digoxin 09/06/20 09/06/20 09/06/20 03:51 03:51 04:04 Hgb Hct MCV MCH Plt Count [place] % (Auto) Lymph # (Auto) Seg Neuts % (Manual) PT 15.0 H INR 1.16 H ABG pH ABG pO2 ABG O2 Saturation Oxyhemoglobin Sodium 134 L Chloride 97.5 L Carbon Dioxide Magnesium 1.50 L NT-Pro-B Natriuret Pep Total Protein Albumin Digoxin 09/07/20 09/07/20 06:11 17:20 Hgb Hct MCV MCH Plt Count [place] % (Auto) Lymph # (Auto) Seg Neuts % (Manual) PT INR ABG pH 7.454 H ABG pO2 69.9 L ABG O2 Saturation 94.6 L Oxyhemoglobin 92.6 L Sodium Chloride Carbon Dioxide Magnesium 1.40 L NT-Pro-B Natriuret Pep Total Protein Albumin Digoxin
[2020-09-07] MEDS: ACETAMINOPHEN 325 MG TAB PO PRN (21:35)
[2020-09-08] MEDS: dilTIAZem 30 MG TAB PO SCH ×4 (02:12→18:50)
[2020-09-08] MEDS: FUROSEMIDE 20 MG/2 ML INJ IV SCH ×2 (05:33→17:26)
[2020-09-08 05:49] LABS: INR 1.16 (0.87-1.13)
[2020-09-08 05:52] LABS: BUN/Creatinine Ratio 24; Blood Urea Nitrogen 17 mg/dL (9-20); Calcium 8.9 mg/dL (8.4-10.2); Hemolysis Index 18
[2020-09-08] MEDS: LISINOPRIL 5 MG TAB PO SCH (08:59)
[2020-09-08] MEDS: SPIRONOLACTONE 25 MG TAB PO SCH (09:00)
[2020-09-08] MEDS: METOPROLOL TARTRATE 50 MG TAB PO SCH ×2 (09:00→21:16)
[2020-09-08] MEDS: MAGNESIUM OXIDE 400 MG TAB PO SCH ×2 (09:00→21:17)
[2020-09-08] MEDS ORDERED: MAGNESIUM SULFATE 4 GM/100 ML BAG IV ONE (10:11)
--- NOTE | 2020-09-08 10:14 | Progress Note ---
<THANIAMICASAHARAALONZOBETINA - Last Filed: 09/08/20 14:08> Assessment and Plan 1) Atrial fibrillation with rapid ventricular response Current Visit: Yes Status: Acute Plan to address problem: Cardizem drip dc and changed to po per scheme technician Cardiology consult-recommended Continue metoprolol and digoxin for rate control Continue warfarin with a target INR 2-3 - pharmacy to dose (2) CHF (congestive heart failure) Current Visit: No Status: Acute Plan to address problem: ASA, diuretics and statin monitor I/O and monitor daily weights. Echocardiogram done in April 2020 shows EF of 30 to 35%. (3) Noncompliance with medication regimen Current Visit: Yes Status: Acute Plan to address problem: Compliance with medication is encouraged. Patient verbalized understanding. (4) Alcohol abuse Current Visit: Yes Status: Acute Plan to address problem: Will discussed alcohol use cessation Continue CIWA protocol -ativan and IM haldol PRN. Safety, fall and aspiration precaution Continue arm restraint for safety (5) DVT prophylaxis Current Visit: Yes Status: Acute Plan to address problem: Patient placed on subcutaneous Lovenox. (6) Full code status Current Visit: Yes Status: Acute (7) Hypomagnesemia-replete PRN Current Visit: Yes Status: Acute Replete magnisium Monitor electrolytes - Patient Problems (1) Hypokalemia Current Visit: Yes Status: Acute Plan to address problem: Replete potassium Am lab-monitor electrolytes Subjective Date of service: 09/08/20 Principal diagnosis: Atrial fibrillation Interval history: patient seen at bedside. Agitiated, trying to get out of the bed Bilateral arm restraint on Added PRN haldol IM q 12hts reviewed lab, mar, and v/s Reviewed specialist note Continue metoprolol and digoxin for rate control Continue warfarin with a target INR 2-3 Objective - Constitutional Vitals: Vital Signs - 12hr 09/07/20 09/07/20 09/08/20 23:28 23:36 02:12 Temperature 98.0 F 98.0 F Pulse Rate 87 66 66 Respiratory 18 18 Rate Blood Pressure 125/78 111/81 111/81 O2 Sat by Pulse 93 91 Oximetry 09/08/20 09/08/20 09/08/20 03:50 07:41 08:59 Temperature 98.0 F 97.4 F L Pulse Rate 61 67 90 Respiratory 18 18 Rate Blood Pressure 139/71 157/77 143/93 O2 Sat by Pulse 92 94 Oximetry 09/08/20 09:00 Temperature Pulse Rate 90 Respiratory Rate Blood Pressure 143/93 O2 Sat by Pulse Oximetry General appearance: Present: no acute distress, well-nourished - EENT Eyes: PERRL, EOM intact ENT: hearing intact, clear oral mucosa Ears: bilateral: normal - Neck Neck: supple, normal ROM - Respiratory Respiratory effort: normal Respiratory: bilateral: CTA - Breasts Breasts: normal - Cardiovascular Rhythm: regular Heart Sounds: Present: S1 & S2. Absent: gallop, rub Extremities: pulses intact, No edema, normal color, Full ROM - Gastrointestinal General gastrointestinal: Present: soft, non-tender, non-distended, normal bowel sounds - Genitourinary Male genitourinary: normal - Integumentary Integumentary: clear, warm, dry - Musculoskeletal Musculoskeletal: 1, strength equal bilaterally - Neurologic Neurologic: moves all extremities - Psychiatric Psychiatric: memory intact, appropriate mood/affect, intact judgment & insight - Labs CBC & Chem 7: 09/06/20 03:51 09/08/20 04:46 Labs: Abnormal lab results 09/07/20 09/08/20 09/08/20 Range/Units 17:20 04:46 04:46 PT 15.0 H (12.2-14.9) Sec. INR 1.16 H (0.87-1.13) ABG pH 7.454 H (7.350-7.450) pH Units ABG pO2 69.9 L (80.0-90.0) mm Hg ABG O2 Saturation 94.6 L (95.0-99.0) % Oxyhemoglobin 92.6 L (95.0-99.0) % Potassium 3.5 L (3.6-5.0) mmol/L Creatinine 0.7 L (0.8-1.3) mg/dL Magnesium 1.50 L (1.7-2.3) mg/dL HEART Score - HEART Score Troponin: Troponin T < 0.010 ng/mL (0.00-0.029) 09/05/20 23:31 <WALESKA VAIL M - Last Filed: 09/09/20 11:50> Objective - Constitutional Vitals: Vital Signs - 12hr 09/09/20 09/09/20 09/09/20 03:28 07:56 09:50 Temperature 97.8 F 97.5 F L Pulse Rate 80 64 67 Respiratory 18 18 Rate Blood Pressure 128/82 121/87 121/67 O2 Sat by Pulse 95 93 Oximetry 09/09/20 09:51 Temperature Pulse Rate 64 Respiratory Rate Blood Pressure O2 Sat by Pulse Oximetry - Labs CBC & Chem 7: 09/06/20 03:51 09/09/20 05:15 Labs: Abnormal lab results 09/09/20 09/09/20 09/09/20 Range/Units 05:15 05:15 08:16 PT 16.5 H (12.2-14.9) Sec. INR 1.30 H (0.87-1.13) Potassium 3.5 L (3.6-5.0) mmol/L POC Glucose 64 L (70-105) HEART Score - HEART Score Troponin: Troponin T < 0.010 ng/mL (0.00-0.029) 09/05/20 23:31
--- NOTE | 2020-09-08 10:34 | Progress Note ---
Assessment and Plan Persistent atrial fibrillation - rate controlled Cardiomyopathy, non-ischemia MPI 05/2020 - No ischemia Echo 05/2020 - LVEF 35%, mild MS Alcohol abuse and withdrawal Non-compliance Recommendations: Continue metoprolol and digoxin for rate control Increase diltiazem to 60 mg po q8 hours Continue warfarin with a target INR 2-3 - pharmacy to dose CIWA protocol Subjective Date of service: 09/08/20 Principal diagnosis: Atrial fibrillation Interval history: No cardiac events reported overnight Tele showing afib with occasional RVR Objective Vital Signs Temp Pulse Pulse Resp BP Pulse Ox 09/08/20 09:00 90 143/93 09/08/20 08:59 90 143/93 09/08/20 07:41 97.4 F L 67 18 157/77 94 09/08/20 03:50 98.0 F 61 18 139/71 92 09/08/20 02:12 66 111/81 09/07/20 23:36 98.0 F 66 18 111/81 91 09/07/20 23:28 98.0 F 87 18 125/78 93 09/07/20 21:35 69 158/91 09/07/20 20:00 81 09/07/20 19:50 97.7 F 69 18 158/91 92 09/07/20 15:34 97.5 F L 64 18 138/87 100 09/07/20 14:00 81 81 09/07/20 11:50 97.3 F L 81 18 138/84 93 - Physical Examination HEENT: Positive: PERRL Neck: Positive: neck supple Cardiac: Positive: irregularly irregular Lungs: Positive: Normal Exam Neuro: Positive: Grossly Intact Abdomen: Positive: Soft Skin: Positive: Clear Extremities: Absent: edema - Labs and Meds Coagulation 09/08/20 Range/Units 04:46 PT 15.0 H (12.2-14.9) Sec. INR 1.16 H (0.87-1.13) Comprehensive Metabolic Panel 09/08/20 Range/Units 04:46 Sodium 137 (137-145) mmol/L Potassium 3.5 L (3.6-5.0) mmol/L Chloride 99.8 (98-107) mmol/L Carbon Dioxide 24 (22-30) mmol/L BUN 17 (9-20) mg/dL Creatinine 0.7 L (0.8-1.3) mg/dL Glucose 97 (75-100) mg/dL Calcium 8.9 (8.4-10.2) mg/dL
[2020-09-08] MEDS ORDERED: POTASSIUM CHLORIDE ER 20 MEQ TAB PO ONE (10:46)
[2020-09-08] MEDS ORDERED: POTASSIUM CHLORIDE 10 MEQ 10 MEQ/100 ML BAG IV SCH (11:00)
[2020-09-08] MEDS: LORazepam 2 MG/ML VIAL IV PRN ×3 (11:03→17:10)
[2020-09-08] MEDS ORDERED: HALOPERIDOL LACTATE 5 MG/1 ML INJ IM PRN ×2 (12:31→14:03)
[2020-09-08] MEDS: WARFARIN 7.5 MG TAB PO SCH (17:15)
[2020-09-08] MEDS: DIGOXIN 0.25 MG TAB PO SCH (17:25)
--- NOTE | 2020-09-08 20:43 | Progress Note ---
Assessment and Plan Patient resting on room air. Denies chest pain, shortness of breath or cough at this time. O2 saturation 93% on room air. Patient afebrile. No leukocytosis. ABG on room air. ABG pH 7.454 pH Units (7.350-7.450) H 09/07/20 17:20 ABG pCO2 35.2 mm Hg 09/07/20 17:20 ABG pO2 69.9 mm Hg (80.0-90.0) L 09/07/20 17:20 ABG O2 Saturation 94.6 % (95.0-99.0) L 09/07/20 17:20 - Patient Problems (1) Atrial fibrillation with rapid ventricular response Current Visit: Yes Status: Acute Plan to address problem: Patient is on digoxin and coumsdin. Management as per cardiology. (2) Chest pain Current Visit: Yes Status: Acute Plan to address problem: Management as per cardiology. (3) Shortness of breath Current Visit: Yes Status: Acute Plan to address problem: Could be related to his heart condition. Counselled to stop smoking. PFTs as out patient. (4) Alcohol abuse Current Visit: Yes Status: Acute Plan to address problem: Management as per primary care. (5) Hypomagnesemia Current Visit: Yes Status: Acute Plan to address problem: Supplementing Magnesium. Subjective Date of service: 09/08/20 Principal diagnosis: Atrial fibrillation Interval history: Patient resting on room air. Denies chest pain, shortness of breath or cough at this time. O2 saturation 93% on room air. Patient afebrile. No leukocytosis. ABG on room air ABG pH 7.454 pH Units (7.350-7.450) H 09/07/20 17:20 ABG pCO2 35.2 mm Hg 09/07/20 17:20 ABG pO2 69.9 mm Hg (80.0-90.0) L 09/07/20 17:20 ABG O2 Saturation 94.6 % (95.0-99.0) L 09/07/20 17:20 Objective Vital Signs - 12hr 09/08/20 09/08/20 09/08/20 08:59 09:00 10:00 Temperature Pulse Rate 90 90 Pulse Rate [ 86 Apical] Respiratory 16 Rate Blood Pressure 143/93 143/93 O2 Sat by Pulse 98 Oximetry 09/08/20 09/08/20 09/08/20 11:02 11:33 14:00 Temperature 97.5 F L Pulse Rate 75 75 74 Pulse Rate [ Apical] Respiratory 18 Rate Blood Pressure 135/85 124/87 O2 Sat by Pulse 92 Oximetry 09/08/20 09/08/20 09/08/20 16:45 17:25 19:27 Temperature 97.6 F 97.6 F Pulse Rate 71 78 73 Pulse Rate [ Apical] Respiratory 18 18 Rate Blood Pressure 140/84 124/74 172/94 O2 Sat by Pulse 94 93 Oximetry Constitutional: no acute distress, alert Eyes: non-icteric Neck: supple, no JVD Effort: mildly labored Ascultation: Bilateral: other (Prolonged expiratory phase.) Cardiovascular: irregular rhythm Gastrointestinal: normoactive bowel sounds, soft, non-tender Integumentary: normal Extremities: no cyanosis, no edema Neurologic: normal mental status, non-focal exam, pupils equal and round, CN II- XII normal Psychiatric: depressed CBC and BMP: 09/06/20 03:51 09/08/20 04:46 ABG, PT/INR, D-dimer: ABG ABG pH 7.454 pH Units (7.350-7.450) H 09/07/20 17:20 ABG pCO2 35.2 mm Hg 09/07/20 17:20 ABG pO2 69.9 mm Hg (80.0-90.0) L 09/07/20 17:20 ABG O2 Saturation 94.6 % (95.0-99.0) L 09/07/20 17:20 PT/INR, D-dimer PT 15.0 Sec. (12.2-14.9) H 09/08/20 04:46 INR 1.16 (0.87-1.13) H 09/08/20 04:46 Abnormal lab findings: Abnormal Labs 09/05/20 09/05/20 09/05/20 18:04 18:04 18:04 Hgb 16.1 H Hct 47.6 H MCV 97 H MCH 33 H Plt Count 108 L [place] % (Auto) 13.0 H Lymph # (Auto) 1.0 L Seg Neuts % (Manual) PT INR ABG pH ABG pO2 ABG O2 Saturation Oxyhemoglobin Sodium 136 L Potassium Chloride Carbon Dioxide 20 L Creatinine Magnesium NT-Pro-B Natriuret Pep Total Protein 9.0 H Albumin 3.2 L Digoxin 0.3 L 09/05/20 09/05/20 09/06/20 18:04 18:04 03:51 Hgb 16.1 H Hct 47.9 H MCV 97 H MCH 33 H Plt Count 100 L [place] % (Auto) Lymph # (Auto) Seg Neuts % (Manual) 74.0 H PT INR ABG pH ABG pO2 ABG O2 Saturation Oxyhemoglobin Sodium Potassium Chloride Carbon Dioxide Creatinine Magnesium 1.50 L NT-Pro-B Natriuret Pep 2644 H Total Protein Albumin Digoxin 09/06/20 09/06/20 09/06/20 03:51 03:51 04:04 Hgb Hct MCV MCH Plt Count [place] % (Auto) Lymph # (Auto) Seg Neuts % (Manual) PT 15.0 H INR 1.16 H ABG pH ABG pO2 ABG O2 Saturation Oxyhemoglobin Sodium 134 L Potassium Chloride 97.5 L Carbon Dioxide Creatinine Magnesium 1.50 L NT-Pro-B Natriuret Pep Total Protein Albumin Digoxin 09/07/20 09/07/20 09/08/20 06:11 17:20 04:46 Hgb Hct MCV MCH Plt Count [place] % (Auto) Lymph # (Auto) Seg Neuts % (Manual) PT 15.0 H INR 1.16 H ABG pH 7.454 H ABG pO2 69.9 L ABG O2 Saturation 94.6 L Oxyhemoglobin 92.6 L Sodium Potassium Chloride Carbon Dioxide Creatinine Magnesium 1.40 L NT-Pro-B Natriuret Pep Total Protein Albumin Digoxin 09/08/20 04:46 Hgb Hct MCV MCH Plt Count [place] % (Auto) Lymph # (Auto) Seg Neuts % (Manual) PT INR ABG pH ABG pO2 ABG O2 Saturation Oxyhemoglobin Sodium Potassium 3.5 L Chloride Carbon Dioxide Creatinine 0.7 L Magnesium 1.50 L NT-Pro-B Natriuret Pep Total Protein Albumin Digoxin
[2020-09-09] MEDS: dilTIAZem 30 MG TAB PO SCH (03:00)
[2020-09-09] MEDS: FUROSEMIDE 20 MG/2 ML INJ IV SCH (05:44)
[2020-09-09 06:20] LABS: INR 1.3 (0.87-1.13)
[2020-09-09 06:31] LABS: BUN/Creatinine Ratio 19; Blood Urea Nitrogen 17 mg/dL (9-20); Calcium 9.3 mg/dL (8.4-10.2); Hemolysis Index 10
[2020-09-09] MEDS ORDERED: POTASSIUM CHLORIDE ER 10 MEQ TAB PO NR (08:24)
[2020-09-09] MEDS: POTASSIUM CHLORIDE ER 20 MEQ TAB PO NR (09:48)
[2020-09-09] MEDS: SPIRONOLACTONE 25 MG TAB PO SCH (09:50)
[2020-09-09] MEDS: MAGNESIUM OXIDE 400 MG TAB PO SCH ×2 (09:50→21:29)
[2020-09-09] MEDS: METOPROLOL TARTRATE 50 MG TAB PO SCH ×2 (09:50→21:29)
[2020-09-09] MEDS: LISINOPRIL 5 MG TAB PO SCH (09:51)
--- NOTE | 2020-09-09 11:58 | Progress Note ---
Assessment and Plan Persistent atrial fibrillation - rate controlled Cardiomyopathy, non-ischemia MPI 05/2020 - No ischemia Echo 05/2020 - LVEF 35%, mild MS and left atrial dilatation. Alcohol abuse and withdrawal Non-compliance Recommendations: Continue metoprolol, diltiazem and digoxin for rate control of persistent atrial fibrillation. Continue warfarin with a target INR 2-3 - pharmacy is following. Subjective Date of service: 09/09/20 Principal diagnosis: Atrial fibrillation Interval history: Afib with a well controlled ventricular rate on telemetry. Today's INR is 1.30. Objective Vital Signs Temp Pulse Pulse Resp BP Pulse Ox 09/09/20 09:51 64 09/09/20 09:50 67 121/67 09/09/20 07:56 97.5 F L 64 18 121/87 93 09/09/20 03:28 97.8 F 80 18 128/82 95 09/08/20 23:25 122.0 F H 95 H 18 151/91 95 09/08/20 22:00 72 18 98 09/08/20 21:16 73 172/94 09/08/20 19:27 97.6 F 73 18 172/94 93 09/08/20 17:25 78 124/74 09/08/20 16:45 97.6 F 71 18 140/84 94 09/08/20 14:00 74 - Physical Examination General: No Apparent Distress HEENT: Positive: PERRL Neck: Positive: neck supple Cardiac: Positive: irregularly irregular Extremities: Absent: edema - Labs and Meds Coagulation 09/09/20 Range/Units 05:15 PT 16.5 H (12.2-14.9) Sec. INR 1.30 H (0.87-1.13) Comprehensive Metabolic Panel 09/09/20 Range/Units 05:15 Sodium 139 (137-145) mmol/L Potassium 3.5 L (3.6-5.0) mmol/L Chloride 99.0 (98-107) mmol/L Carbon Dioxide 25 (22-30) mmol/L BUN 17 (9-20) mg/dL Creatinine 0.9 (0.8-1.3) mg/dL Glucose 83 (75-100) mg/dL Calcium 9.3 (8.4-10.2) mg/dL
[2020-09-09] MEDS ORDERED: POTASSIUM CHLORIDE ER 20 MEQ TAB PO NR (12:00)
--- NOTE | 2020-09-09 15:02 | Progress Note ---
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 dye operator Cardiology consult, appreciate recommendations Continue metoprolol, diltiazem and digoxin for rate control Continue warfarin with a target INR 2-3 - pharmacy to dose (2) Systolic CHF Current Visit: Yes Status: Acute Qualifiers: Heart failure chronicity: acute on chronic Qualified Code(s): I50.23 - Acute on chronic systolic (congestive) heart failure Plan to address problem: ASA, diuretics, and rate control with BB and digoxin Anticoagulation with warfarin, PKS consulted Strict intake and output Daily weights 05/2020 Echocardiogram shows EF of 30 to 35% with cardiomyopathy, mild MS and mild dilation of left atrium. 05/2020 Lexiscan stress test was negative for ischemia (3) Hypokalemia Current Visit: Yes Status: Acute Plan to address problem: 09/08 potassium 3.5, repleted 09/09 potassium 3.5, repleted Replete as needed Trend BMP (4) Hypomagnesemia Current Visit: Yes Status: Acute Plan to address problem: 09/05 magnesium 1.5, 09/06 1.5, 09/07 1.4, 09/08 1.5 10191.8 Repeat as needed (5) Noncompliance with medication regimen Current Visit: Yes Status: Chronic Plan to address problem: Compliance with medication is encouraged. Patient verbalized understanding. (6) Alcohol abuse Current Visit: Yes Status: Chronic Plan to address problem: Alcohol cessation counseling provided CIWA protocol As needed Ativan and IM Haldol Fall and aspiration precautions (7) DVT prophylaxis Current Visit: Yes Status: Acute Plan to address problem: Systemic anticoagulation with warfarin SCDs bilateral extremities while in bed History Interval history: 60-year-old male with atrial fibrillation, HFrEF (30-35%), hypertension, medical noncompliance, alcohol abuse (~4 beers/day) and tobacco abuse presented to the emergency room on 09/05 with shortness of breath and chest pain which has been ongoing for about 3 days with some nausea but no vomiting and mild swelling in his lower extremities. He was admitted with Lucien cole with RVR and was given Cardizem IV and started on a Cardizem drip in the emergency department and was also noted to have elevated proBNP. Cardiology was consulted. This morning on my examination patient remains in bilateral wrist restraints and he is agitated. Patient states that he wants to go home and was arguing with the nurse regarding showering. On a.m. labs he is hypokalemic which has been repleted and was hypoglycemic. He was started on a hypoglycemic protocol today. 09/06: Patient still in A. fib but RVR has improved. Will start patient on his home medication. Again counseling provided to the patient with importance of better management. Await cardiology input. Anticipate discharge in a.m. 09/07: Diltiazem changed to p.o. 09/08: Haldol as needed Hospitalist Physical - Constitutional Vitals: Temp Pulse Resp BP Pulse Ox 97.5 F L 64 18 121/67 93 09/09/20 07:56 09/09/20 09:51 09/09/20 07:56 09/09/20 09:50 09/09/20 07:56 General appearance: Present: no acute distress, well-nourished - EENT Eyes: Present: PERRL, EOM intact ENT: hearing decreased, poor dentition - Neck Neck: Present: normal ROM - Respiratory Respiratory effort: normal Respiratory: bilateral: CTA - Cardiovascular Rhythm: irregularly irregular Heart Sounds: Present: S1 & S2. Absent: systolic murmur, diastolic murmur - Extremities Extremities: no ischemia, pulses intact, pulses symmetrical, No edema, normal temperature, normal color, Full ROM Peripheral Pulses: within normal limits - Abdominal General gastrointestinal: soft, non-tender, non-distended, normal bowel sounds - Integumentary Integumentary: Present: clear, warm, dry - Psychiatric Psychiatric: cooperative - Neurologic Neurologic: CNII-XII intact, no focal deficits, moves all extremities - Allied Health Allied health notes reviewed: nursing HEART Score - HEART Score Troponin: Troponin T < 0.010 ng/mL (0.00-0.029) 09/05/20 23:31 Results - Labs CBC & Chem 7: 09/06/20 03:51 09/09/20 05:15 Labs: Laboratory Last Values WBC 5.9 K/mm3 (4.5-11.0) 09/06/20 03:51 RBC 4.95 M/mm3 (3.65-5.03) 09/06/20 03:51 Hgb 16.1 gm/dl (11.8-15.2) H 09/06/20 03:51 Hct 47.9 % (35.5-45.6) H 09/06/20 03:51 MCV 97 fl (84-94) H 09/06/20 03:51 MCH 33 pg (28-32) H 09/06/20 03:51 MCHC 34 % (32-34) 09/06/20 03:51 RDW 14.8 % (13.2-15.2) 09/06/20 03:51 Plt Count 100 K/mm3 (140-440) L 09/06/20 03:51 Lymph % (Auto) 17.3 % (13.4-35.0) 09/05/20 18:04 [place] % (Auto) Government Affairs Director 09/06/20 03:51 Eos % (Auto) 0.8 % (0.0-4.3) 09/05/20 18:04 Baso % (Auto) Government Affairs Director 09/06/20 03:51 Lymph # (Auto) 1.0 K/mm3 (1.2-5.4) L 09/05/20 18:04 [place] # (Auto) 0.7 K/mm3 (0.0-0.8) 09/05/20 18:04 Eos # (Auto) 0.0 K/mm3 (0.0-0.4) 09/05/20 18:04 Baso # (Auto) 0.0 K/mm3 (0.0-0.1) 09/05/20 18:04 Add Manual Diff Complete 09/06/20 03:51 Total Counted 100 09/06/20 03:51 Seg Neutrophils % 68.0 % (40.0-70.0) 09/05/20 18:04 Seg Neuts % (Manual) 74.0 % (40.0-70.0) H 09/06/20 03:51 Band Neutrophils % 0 % 09/06/20 03:51 Lymphocytes % (Manual) 22.0 % (13.4-35.0) 09/06/20 03:51 Reactive Lymphs % (Man) 0 % 09/06/20 03:51 Monocytes % (Manual) 4.0 % (0.0-7.3) 09/06/20 03:51 Eosinophils % (Manual) 0 % (0.0-4.3) 09/06/20 03:51 Basophils % (Manual) 0 % (0.0-1.8) 09/06/20 03:51 Metamyelocytes % 0 % 09/06/20 03:51 Myelocytes % 0 % 09/06/20 03:51 Promyelocytes % 0 % 09/06/20 03:51 Blast Cells % 0 % 09/06/20 03:51 Nucleated RBC % Not Reportable 09/06/20 03:51 Seg Neutrophils # 3.9 K/mm3 (1.8-7.7) 09/05/20 18:04 Seg Neutrophils # Man 4.4 K/mm3 (1.8-7.7) 09/06/20 03:51 Band Neutrophils # 0.0 K/mm3 09/06/20 03:51 Lymphocytes # (Manual) 1.3 K/mm3 (1.2-5.4) 09/06/20 03:51 Abs React Lymphs (Man) 0.0 K/mm3 09/06/20 03:51 Monocytes # (Manual) 0.2 K/mm3 (0.0-0.8) 09/06/20 03:51 Eosinophils # (Manual) 0.0 K/mm3 (0.0-0.4) 09/06/20 03:51 Basophils # (Manual) 0.0 K/mm3 (0.0-0.1) 09/06/20 03:51 Metamyelocytes # 0.0 K/mm3 09/06/20 03:51 Myelocytes # 0.0 K/mm3 09/06/20 03:51 Promyelocytes # 0.0 K/mm3 09/06/20 03:51 Blast Cells # 0.0 K/mm3 09/06/20 03:51 WBC Morphology Not Reportable 09/06/20 03:51 Hypersegmented Neuts Not Reportable 09/06/20 03:51 Hyposegmented Neuts Not Reportable 09/06/20 03:51 Hypogranular Neuts Not Reportable 09/06/20 03:51 Smudge Cells Not Reportable 09/06/20 03:51 Toxic Granulation Not Reportable 09/06/20 03:51 Toxic Vacuolation Not Reportable 09/06/20 03:51 Dohle Bodies Not Reportable 09/06/20 03:51 Pelger-Huet Anomaly Not Reportable 09/06/20 03:51 Yasmin Rods Not Reportable 09/06/20 03:51 Platelet Estimate Consistent w auto 09/06/20 03:51 Clumped Platelets Not Reportable 09/06/20 03:51 Plt Clumps, EDTA Not Reportable 09/06/20 03:51 Large Platelets Not Reportable 09/06/20 03:51 Giant Platelets Not Reportable 09/06/20 03:51 Platelet Satelliting Not Reportable 09/06/20 03:51 Plt Morphology Comment Not Reportable 09/06/20 03:51 RBC Morphology Not Reportable 09/06/20 03:51 Dimorphic RBCs Not Reportable 09/06/20 03:51 Polychromasia Not Reportable 09/06/20 03:51 Hypochromasia Not Reportable 09/06/20 03:51 Poikilocytosis Not Reportable 09/06/20 03:51 Anisocytosis Not Reportable 09/06/20 03:51 Microcytosis Not Reportable 09/06/20 03:51 Macrocytosis Not Reportable 09/06/20 03:51 Spherocytes Not Reportable 09/06/20 03:51 Pappenheimer Bodies Not Reportable 09/06/20 03:51 Sickle Cells Not Reportable 09/06/20 03:51 Target Cells Not Reportable 09/06/20 03:51 Tear Drop Cells Not Reportable 09/06/20 03:51 Ovalocytes Not Reportable 09/06/20 03:51 Helmet Cells Not Reportable 09/06/20 03:51 [place] Bodies Not Reportable 09/06/20 03:51 [place] Rings Not Reportable 09/06/20 03:51 [place] Cells Not Reportable 09/06/20 03:51 Bite Cells Not Reportable 09/06/20 03:51 Crenated Cell Not Reportable 09/06/20 03:51 Elliptocytes Not Reportable 09/06/20 03:51 Acanthocytes (Spur) Not Reportable 09/06/20 03:51 Rouleaux Not Reportable 09/06/20 03:51 Hemoglobin C Crystals Not Reportable 09/06/20 03:51 Schistocytes Not Reportable 09/06/20 03:51 Malaria parasites Not Reportable 09/06/20 03:51 Ki Bodies Not Reportable 09/06/20 03:51 Hem Pathologist Commnt No 09/06/20 03:51 PT 16.5 Sec. (12.2-14.9) H 09/09/20 05:15 INR 1.30 (0.87-1.13) H 09/09/20 05:15 APTT 28.2 Sec. (24.2-36.6) 09/05/20 18:04 ABG pH 7.454 pH Units (7.350-7.450) H 09/07/20 17:20 ABG pCO2 35.2 mm Hg 09/07/20 17:20 ABG pO2 69.9 mm Hg (80.0-90.0) L 09/07/20 17:20 ABG HCO3 24.2 mmol/L (20.0-26.0) 09/07/20 17:20 ABG O2 Saturation 94.6 % (95.0-99.0) L 09/07/20 17:20 ABG O2 Content 22.1 (0.0-44) 09/07/20 17:20 ABG Base Excess 0.8 mmol/L (-2.0-3.0) 09/07/20 17:20 ABG Hemoglobin 17.0 gm/dl (14.0-18.0) 09/07/20 17:20 ABG Carboxyhemoglobin 1.6 % (0.0-5.0) 09/07/20 17:20 ABG Methemoglobin 0.5 % (0.0-1.5) 09/07/20 17:20 Oxyhemoglobin 92.6 % (95.0-99.0) L 09/07/20 17:20 FiO2 21 % 09/07/20 17:20 Sodium 139 mmol/L (137-145) 09/09/20 05:15 Potassium 3.5 mmol/L (3.6-5.0) L 09/09/20 05:15 Chloride 99.0 mmol/L (98-107) 09/09/20 05:15 Carbon Dioxide 25 mmol/L (22-30) 09/09/20 05:15 Anion Gap 19 mmol/L 09/09/20 05:15 BUN 17 mg/dL (9-20) 09/09/20 05:15 Creatinine 0.9 mg/dL (0.8-1.3) 09/09/20 05:15 Estimated GFR > 60 ml/min 09/09/20 05:15 BUN/Creatinine Ratio 19 % 09/09/20 05:15 Glucose 83 mg/dL (75-100) 09/09/20 05:15 POC Glucose 64 (70-105) L 09/09/20 08:16 Calcium 9.3 mg/dL (8.4-10.2) 09/09/20 05:15 Magnesium 1.80 mg/dL (1.7-2.3) 09/09/20 05:15 Total Bilirubin 0.50 mg/dL (0.1-1.2) 09/05/20 18:04 AST 26 units/L (5-40) 09/05/20 18:04 ALT 12 units/L (7-56) 09/05/20 18:04 Alkaline Phosphatase 106 units/L (35-129) 09/05/20 18:04 Troponin T < 0.010 ng/mL (0.00-0.029) 09/05/20 23:31 NT-Pro-B Natriuret Pep 2644 pg/mL (0-900) H 09/05/20 18:04 Total Protein 9.0 g/dL (6.3-8.2) H 09/05/20 18:04 Albumin 3.2 g/dL (3.9-5) L 09/05/20 18:04 Albumin/Globulin Ratio 0.6 % 09/05/20 18:04 TSH 1.650 mlU/mL (0.270-4.200) 09/05/20 18:11 Free T4 1.19 ng/dL (0.76-1.46) 09/05/20 18:11 Digoxin 0.3 ng/mL (0.9-2.0) L 09/05/20 18:04 Plasma/Serum Alcohol 0.07 % (0-0.07) 09/05/20 18:04 Ejtt/IV: Voiding Method Condom Catheter IV Catheter Type [Right INT / Saline Lock Forearm] IV Catheter Type [Left INT / Saline Lock Antecubital] Active Medications - Current Medications Current Medications: Generic Name Dose Route Start Last Admin Trade Name Freq PRN Reason Stop Dose Admin Acetaminophen 650 mg 09/05/20 22:32 09/07/20 21:35 Tylenol PO 650 mg Q6H PRN Administration Pain MILD(1-3)/Fever >100.5/GILLESPIE Digoxin 0.25 mg 09/06/20 17:00 09/08/20 17:25 Lanoxin PO 0.25 mg DAILY@1700 LUZMARIA Administration Diltiazem HCl 60 mg 09/08/20 10:33 09/09/20 03:00 Cardizem PO 60 mg Q8H LUZMARIA Administration Furosemide 20 mg 09/06/20 06:00 09/09/20 05:44 Lasix IV 20 mg 0600,1800 LUZMARIA Administration Haloperidol Lactate 2 mg 09/08/20 14:03 Haldol IM Q12HR PRN Agitation Lisinopril 10 mg 09/09/20 10:00 09/09/20 09:51 Zestril PO 10 mg QDAY LUZMARIA Administration Lorazepam 2 mg 09/05/20 22:09 Ativan PO Q1HR PRN CIWA-Ar 8-15 Lorazepam 2 mg 09/05/20 22:09 09/08/20 12:15 Ativan IV 2 mg Q1HR PRN Administration CIWA-Ar 8-15 Lorazepam 4 mg 09/05/20 22:09 09/08/20 17:10 Ativan IV 4 mg Q1HR PRN Administration CIWA-Ar 16-25 Magnesium Hydroxide 30 ml 09/05/20 22:32 Milk Of Magnesia PO Q4H PRN Constipation Magnesium Oxide 400 mg 09/06/20 22:00 09/09/20 09:50 Mag-Ox PO 400 mg BID LUZMARIA Administration Metoprolol Tartrate 50 mg 09/06/20 22:00 09/09/20 09:50 Metoprolol PO 50 mg BID LUZMARIA Administration Morphine Sulfate 2 mg 09/05/20 22:32 09/06/20 11:18 Morphine IV 2 mg Q5MIN PRN Administration Chest Pain unrelieved by NTG Ondansetron HCl 4 mg 09/05/20 22:32 09/06/20 11:18 Zofran IV 4 mg Q8H PRN Administration Nausea And Vomiting Potassium Chloride 40 meq 09/09/20 12:00 K-Dur PO 09/09/20 15:00 ONCE NR Sodium Chloride 10 ml 09/06/20 10:00 09/09/20 09:52 Sodium Chloride Flush Syringe 10 Ml IV 10 ml BID LUZMARIA Administration Sodium Chloride 10 ml 09/05/20 22:32 Sodium Chloride Flush Syringe 10 Ml IV PRN PRN LINE FLUSH Spironolactone 25 mg 09/07/20 10:00 09/09/20 09:50 Aldactone PO 25 mg QDAY LUZMARIA Administration Warfarin Sodium 7.5 mg 09/06/20 17:00 09/08/20 17:15 Coumadin PO 7.5 mg DAILY@1700 LUZMARIA Administration Protocol Nutrition/Malnutrition Assess - Dietary Evaluation Nutrition/Malnutrition Findings: Nutrition Notes Start: 09/06/20 14:03 Freq: Status: Active Protocol: Document 09/09/20 13:30 YAJAIRA (Rec: 09/09/20 13:32 YAJAIRA FERREIRAW-[email or web address]) Nutrition Notes Need for Assessment generated from: Education Initial or Follow up Brief Note Pertinent Medications Coumadin Subjective/Other Information Pt screened for DNI education. He is inappropriate for diet education at this time, as he is going through EtOH withdrawal with DTs. Nutrition Intervention Follow-Up By: 09/10/20 Additional Comments F/U: assessment, intakes
--- NOTE | 2020-09-09 17:28 | Progress Note ---
Assessment and Plan Patient sleeping on room air. O2 saturation reported 100% . No acute respiratory distress. Patient afebrile. No leukocytosis. ABG on room air ABG pH 7.454 pH Units (7.350-7.450) H 09/07/20 17:20 ABG pCO2 35.2 mm Hg 09/07/20 17:20 ABG pO2 69.9 mm Hg (80.0-90.0) L 09/07/20 17:20 ABG O2 Saturation 94.6 % (95.0-99.0) L 09/07/20 17:20 - Patient Problems (1) Atrial fibrillation with rapid ventricular response Current Visit: Yes Status: Acute Plan to address problem: Patient is on digoxin and coumsdin. Management as per cardiology. (2) Chest pain Current Visit: Yes Status: Acute Plan to address problem: Management as per cardiology. (3) Shortness of breath Current Visit: Yes Status: Acute Plan to address problem: Could be related to his heart condition. Counselled to stop smoking. PFTs as out patient. (4) Alcohol abuse Current Visit: Yes Status: Chronic Plan to address problem: Management as per primary care. (5) Hypomagnesemia Current Visit: Yes Status: Acute Plan to address problem: Supplementing Magnesium. Subjective Date of service: 09/09/20 Principal diagnosis: Atrial fibrillation Interval history: Patient sleeping on room air. O2 saturation reported 100% . No acute respiratory distress. Patient afebrile. No leukocytosis. ABG on room air ABG pH 7.454 pH Units (7.350-7.450) H 09/07/20 17:20 ABG pCO2 35.2 mm Hg 09/07/20 17:20 ABG pO2 69.9 mm Hg (80.0-90.0) L 09/07/20 17:20 ABG O2 Saturation 94.6 % (95.0-99.0) L 09/07/20 17:20 Objective Vital Signs - 12hr 09/09/20 09/09/20 09/09/20 07:56 09:50 09:51 Temperature 97.5 F L Pulse Rate 64 67 64 Pulse Rate [ Apical] Respiratory 18 Rate Blood Pressure 121/87 121/67 O2 Sat by Pulse 93 Oximetry 09/09/20 10:00 Temperature Pulse Rate Pulse Rate [ 86 Apical] Respiratory 16 Rate Blood Pressure O2 Sat by Pulse 98 Oximetry Constitutional: no acute distress, alert Eyes: non-icteric Neck: supple, no JVD Effort: mildly labored Ascultation: Bilateral: other (Prolonged expiratory phase.) Cardiovascular: irregular rhythm Gastrointestinal: normoactive bowel sounds, soft, non-tender Integumentary: normal Extremities: no cyanosis, no edema Neurologic: normal mental status, non-focal exam, pupils equal and round, CN II- XII normal Psychiatric: depressed CBC and BMP: 09/06/20 03:51 09/09/20 05:15 ABG, PT/INR, D-dimer: ABG ABG pH 7.454 pH Units (7.350-7.450) H 09/07/20 17:20 ABG pCO2 35.2 mm Hg 09/07/20 17:20 ABG pO2 69.9 mm Hg (80.0-90.0) L 09/07/20 17:20 ABG O2 Saturation 94.6 % (95.0-99.0) L 09/07/20 17:20 PT/INR, D-dimer PT 16.5 Sec. (12.2-14.9) H 09/09/20 05:15 INR 1.30 (0.87-1.13) H 09/09/20 05:15 Abnormal lab findings: Abnormal Labs 09/05/20 09/05/20 09/05/20 18:04 18:04 18:04 Hgb 16.1 H Hct 47.6 H MCV 97 H MCH 33 H Plt Count 108 L [place] % (Auto) 13.0 H Lymph # (Auto) 1.0 L Seg Neuts % (Manual) PT INR ABG pH ABG pO2 ABG O2 Saturation Oxyhemoglobin Sodium 136 L Potassium Chloride Carbon Dioxide 20 L Creatinine POC Glucose Magnesium NT-Pro-B Natriuret Pep Total Protein 9.0 H Albumin 3.2 L Digoxin 0.3 L 09/05/20 09/05/20 09/06/20 18:04 18:04 03:51 Hgb 16.1 H Hct 47.9 H MCV 97 H MCH 33 H Plt Count 100 L [place] % (Auto) Lymph # (Auto) Seg Neuts % (Manual) 74.0 H PT INR ABG pH ABG pO2 ABG O2 Saturation Oxyhemoglobin Sodium Potassium Chloride Carbon Dioxide Creatinine POC Glucose Magnesium 1.50 L NT-Pro-B Natriuret Pep 2644 H Total Protein Albumin Digoxin 09/06/20 09/06/20 09/06/20 03:51 03:51 04:04 Hgb Hct MCV MCH Plt Count [place] % (Auto) Lymph # (Auto) Seg Neuts % (Manual) PT 15.0 H INR 1.16 H ABG pH ABG pO2 ABG O2 Saturation Oxyhemoglobin Sodium 134 L Potassium Chloride 97.5 L Carbon Dioxide Creatinine POC Glucose Magnesium 1.50 L NT-Pro-B Natriuret Pep Total Protein Albumin Digoxin 09/07/20 09/07/20 09/08/20 06:11 17:20 04:46 Hgb Hct MCV MCH Plt Count [place] % (Auto) Lymph # (Auto) Seg Neuts % (Manual) PT 15.0 H INR 1.16 H ABG pH 7.454 H ABG pO2 69.9 L ABG O2 Saturation 94.6 L Oxyhemoglobin 92.6 L Sodium Potassium Chloride Carbon Dioxide Creatinine POC Glucose Magnesium 1.40 L NT-Pro-B Natriuret Pep Total Protein Albumin Digoxin 09/08/20 09/09/20 09/09/20 04:46 05:15 05:15 Hgb Hct MCV MCH Plt Count [place] % (Auto) Lymph # (Auto) Seg Neuts % (Manual) PT 16.5 H INR 1.30 H ABG pH ABG pO2 ABG O2 Saturation Oxyhemoglobin Sodium Potassium 3.5 L 3.5 L Chloride Carbon Dioxide Creatinine 0.7 L POC Glucose Magnesium 1.50 L NT-Pro-B Natriuret Pep Total Protein Albumin Digoxin 09/09/20 08:16 Hgb Hct MCV MCH Plt Count [place] % (Auto) Lymph # (Auto) Seg Neuts % (Manual) PT INR ABG pH ABG pO2 ABG O2 Saturation Oxyhemoglobin Sodium Potassium Chloride Carbon Dioxide Creatinine POC Glucose 64 L Magnesium NT-Pro-B Natriuret Pep Total Protein Albumin Digoxin
[2020-09-10] MEDS: dilTIAZem 30 MG TAB PO SCH ×3 (03:05→18:33)
[2020-09-10 05:09] LABS: INR 1.35 (0.87-1.13)
[2020-09-10] MEDS: FUROSEMIDE 20 MG/2 ML INJ IV SCH (05:25)
[2020-09-10 05:35] LABS: BUN/Creatinine Ratio 25; Blood Urea Nitrogen 28 mg/dL (9-20); Calcium 8.9 mg/dL (8.4-10.2); Hemolysis Index 23
[2020-09-10] MEDS: DIGOXIN 0.25 MG TAB PO SCH ×2 (09:31→18:19)
[2020-09-10] MEDS: MAGNESIUM OXIDE 400 MG TAB PO SCH ×2 (09:32→21:49)
[2020-09-10] MEDS: METOPROLOL TARTRATE 50 MG TAB PO SCH ×2 (09:32→21:50)
[2020-09-10] MEDS: SPIRONOLACTONE 25 MG TAB PO SCH (09:32)
--- NOTE | 2020-09-10 10:20 | Progress Note ---
Assessment and Plan Patient sleeping on room air. O2 saturation reported 100% . No acute respiratory distress. Patient afebrile. No leukocytosis. ABG on room air ABG pH 7.454 pH Units (7.350-7.450) H 09/07/20 17:20 ABG pCO2 35.2 mm Hg 09/07/20 17:20 ABG pO2 69.9 mm Hg (80.0-90.0) L 09/07/20 17:20 ABG O2 Saturation 94.6 % (95.0-99.0) L 09/07/20 17:20 - Patient Problems (1) Atrial fibrillation with rapid ventricular response Current Visit: Yes Status: Acute Plan to address problem: Patient is on digoxin and coumsdin. Management as per cardiology. (2) Chest pain Current Visit: Yes Status: Acute Plan to address problem: Management as per cardiology. (3) Shortness of breath Current Visit: Yes Status: Acute Plan to address problem: Could be related to his heart condition. Counselled to stop smoking. PFTs as out patient. (4) Alcohol abuse Current Visit: Yes Status: Chronic Plan to address problem: Management as per primary care. (5) Hypomagnesemia Current Visit: Yes Status: Acute Plan to address problem: Supplementing Magnesium. Subjective Date of service: 09/10/20 Principal diagnosis: Atrial fibrillation Interval history: Patient sleeping on room air. O2 saturation reported 100% . No acute respiratory distress. Patient afebrile. No leukocytosis. ABG on room air ABG pH 7.454 pH Units (7.350-7.450) H 09/07/20 17:20 ABG pCO2 35.2 mm Hg 09/07/20 17:20 ABG pO2 69.9 mm Hg (80.0-90.0) L 09/07/20 17:20 ABG O2 Saturation 94.6 % (95.0-99.0) L 09/07/20 17:20 Objective Vital Signs - 12hr 09/09/20 09/10/20 09/10/20 23:39 04:07 07:40 Temperature 98.7 F 97.8 F 98.0 F Pulse Rate 114 H 97 H 77 Respiratory 16 16 18 Rate Blood Pressure 158/108 146/86 100/71 O2 Sat by Pulse 97 93 100 Oximetry 09/10/20 09/10/20 09/10/20 09:31 09:32 09:41 Temperature Pulse Rate 76 76 87 Respiratory Rate Blood Pressure O2 Sat by Pulse Oximetry Constitutional: no acute distress, asleep Eyes: non-icteric Neck: supple, no JVD Effort: mildly labored Ascultation: Bilateral: other (Prolonged expiratory phase.) Cardiovascular: irregular rhythm Gastrointestinal: normoactive bowel sounds, soft, non-tender Integumentary: normal Extremities: no cyanosis, no edema Neurologic: normal mental status, non-focal exam, pupils equal and round, CN II- XII normal Psychiatric: depressed CBC and BMP: 09/06/20 03:51 09/10/20 04:35 ABG, PT/INR, D-dimer: ABG ABG pH 7.454 pH Units (7.350-7.450) H 09/07/20 17:20 ABG pCO2 35.2 mm Hg 09/07/20 17:20 ABG pO2 69.9 mm Hg (80.0-90.0) L 09/07/20 17:20 ABG O2 Saturation 94.6 % (95.0-99.0) L 09/07/20 17:20 PT/INR, D-dimer PT 17.0 Sec. (12.2-14.9) H 09/10/20 04:35 INR 1.35 (0.87-1.13) H 09/10/20 04:35 Abnormal lab findings: Abnormal Labs 09/05/20 09/05/20 09/05/20 18:04 18:04 18:04 Hgb 16.1 H Hct 47.6 H MCV 97 H MCH 33 H Plt Count 108 L [place] % (Auto) 13.0 H Lymph # (Auto) 1.0 L Seg Neuts % (Manual) PT INR ABG pH ABG pO2 ABG O2 Saturation Oxyhemoglobin Sodium 136 L Potassium Chloride Carbon Dioxide 20 L BUN Creatinine Glucose POC Glucose Magnesium NT-Pro-B Natriuret Pep Total Protein 9.0 H Albumin 3.2 L Digoxin 0.3 L 09/05/20 09/05/20 09/06/20 18:04 18:04 03:51 Hgb 16.1 H Hct 47.9 H MCV 97 H MCH 33 H Plt Count 100 L [place] % (Auto) Lymph # (Auto) Seg Neuts % (Manual) 74.0 H PT INR ABG pH ABG pO2 ABG O2 Saturation Oxyhemoglobin Sodium Potassium Chloride Carbon Dioxide BUN Creatinine Glucose POC Glucose Magnesium 1.50 L NT-Pro-B Natriuret Pep 2644 H Total Protein Albumin Digoxin 09/06/20 09/06/20 09/06/20 03:51 03:51 04:04 Hgb Hct MCV MCH Plt Count [place] % (Auto) Lymph # (Auto) Seg Neuts % (Manual) PT 15.0 H INR 1.16 H ABG pH ABG pO2 ABG O2 Saturation Oxyhemoglobin Sodium 134 L Potassium Chloride 97.5 L Carbon Dioxide BUN Creatinine Glucose POC Glucose Magnesium 1.50 L NT-Pro-B Natriuret Pep Total Protein Albumin Digoxin 09/07/20 09/07/20 09/08/20 06:11 17:20 04:46 Hgb Hct MCV MCH Plt Count [place] % (Auto) Lymph # (Auto) Seg Neuts % (Manual) PT 15.0 H INR 1.16 H ABG pH 7.454 H ABG pO2 69.9 L ABG O2 Saturation 94.6 L Oxyhemoglobin 92.6 L Sodium Potassium Chloride Carbon Dioxide BUN Creatinine Glucose POC Glucose Magnesium 1.40 L NT-Pro-B Natriuret Pep Total Protein Albumin Digoxin 09/08/20 09/09/20 09/09/20 04:46 05:15 05:15 Hgb Hct MCV MCH Plt Count [place] % (Auto) Lymph # (Auto) Seg Neuts % (Manual) PT 16.5 H INR 1.30 H ABG pH ABG pO2 ABG O2 Saturation Oxyhemoglobin Sodium Potassium 3.5 L 3.5 L Chloride Carbon Dioxide BUN Creatinine 0.7 L Glucose POC Glucose Magnesium 1.50 L NT-Pro-B Natriuret Pep Total Protein Albumin Digoxin 09/09/20 09/10/20 09/10/20 08:16 04:35 04:35 Hgb Hct MCV MCH Plt Count [place] % (Auto) Lymph # (Auto) Seg Neuts % (Manual) PT 17.0 H INR 1.35 H ABG pH ABG pO2 ABG O2 Saturation Oxyhemoglobin Sodium Potassium Chloride Carbon Dioxide BUN 28 H Creatinine Glucose 101 H POC Glucose 64 L Magnesium NT-Pro-B Natriuret Pep Total Protein Albumin Digoxin
--- NOTE | 2020-09-10 11:05 | Progress Note ---
Assessment and Plan Persistent atrial fibrillation - rate controlled Cardiomyopathy, non-ischemia MPI 05/2020 - No ischemia Echo 05/2020 - LVEF 35%, mild MS and left atrial dilatation. Hx of Alcohol abuse Non-compliance Recommendations: Continue metoprolol, diltiazem and digoxin for rate control of persistent atrial fibrillation. Continue warfarin for oral anticoagulation. Otherwise, conservative cardiac management. Subjective Date of service: 09/10/20 Principal diagnosis: Atrial fibrillation Interval history: Afib with a well controlled ventricular rate on telemetry. Today's INR is 1.35 Objective Vital Signs Temp Pulse Resp BP Pulse Ox 09/10/20 09:41 87 09/10/20 09:32 76 09/10/20 09:31 76 09/10/20 07:40 98.0 F 77 18 100/71 100 09/10/20 04:07 97.8 F 97 H 16 146/86 93 09/09/20 23:39 98.7 F 114 H 16 158/108 97 09/09/20 22:00 18 98 09/09/20 21:29 60 97/62 09/09/20 19:36 97.6 F 60 16 97/62 98 09/09/20 16:21 98.0 F 64 20 127/66 100 09/09/20 14:00 99 H 09/09/20 11:11 97.2 F L 70 18 138/75 91 - Physical Examination General: No Apparent Distress HEENT: Positive: PERRL Neck: Positive: neck supple Cardiac: Positive: irregularly irregular Neuro: Positive: Grossly Intact Extremities: Absent: edema - Labs and Meds Coagulation 09/10/20 Range/Units 04:35 PT 17.0 H (12.2-14.9) Sec. INR 1.35 H (0.87-1.13) Comprehensive Metabolic Panel 09/10/20 Range/Units 04:35 Sodium 139 (137-145) mmol/L Potassium 3.7 (3.6-5.0) mmol/L Chloride 100.1 (98-107) mmol/L Carbon Dioxide 25 (22-30) mmol/L BUN 28 H (9-20) mg/dL Creatinine 1.1 (0.8-1.3) mg/dL Glucose 101 H (75-100) mg/dL Calcium 8.9 (8.4-10.2) mg/dL
[2020-09-10] MEDS: LISINOPRIL 5 MG TAB PO SCH (14:10)
--- NOTE | 2020-09-10 15:24 | Progress Note ---
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 reinforcing bar setter Cardiology consult, appreciate recommendations Continue metoprolol, diltiazem and digoxin for rate control Continue warfarin with a target INR 2-3 - pharmacy to dose (2) Systolic CHF Current Visit: Yes Status: Acute Qualifiers: Heart failure chronicity: acute on chronic Qualified Code(s): I50.23 - Acute on chronic systolic (congestive) heart failure Plan to address problem: ASA, diuretic, and rate control with BB and digoxin Anticoagulation with warfarin, PKS consulted Strict intake and output Daily weights 05/2020 Echocardiogram shows EF of 30 to 35% with cardiomyopathy, mild MS and mild dilation of left atrium. 05/2020 Lexiscan stress test was negative for ischemia (3) Hypokalemia Current Visit: Yes Status: Resolved Plan to address problem: 09/08 potassium 3.5, repleted 09/09 potassium 3.5, repleted 09/10 potassium 3.7 Replete as needed Trend BMP (4) Hypomagnesemia Current Visit: Yes Status: Resolved Plan to address problem: 09/05 magnesium 1.5, 09/06 1.5, 09/07 1.4, 09/08 1.5 09/09 1.8 Repeat as needed (5) Noncompliance with medication regimen Current Visit: Yes Status: Chronic Plan to address problem: Compliance with medication is encouraged. Patient verbalized understanding. CM consulted (6) Alcohol abuse Current Visit: Yes Status: Chronic Plan to address problem: Alcohol cessation counseling provided CIWA protocol As needed Ativan and IM Haldol Fall and aspiration precautions (7) DVT prophylaxis Current Visit: Yes Status: Acute Plan to address problem: Systemic anticoagulation with warfarin SCDs bilateral extremities while in bed History Interval history: 60-year-old male with atrial fibrillation, HFrEF (30-35%), hypertension, medical noncompliance, alcohol abuse (~4 beers/day) and tobacco abuse presented to the emergency room on 09/05 with shortness of breath and chest pain which has been ongoing for about 3 days with some nausea but no vomiting and mild swelling in his lower extremities. He was admitted with Lucien cole with RVR and was given Cardizem IV and started on a Cardizem drip in the emergency department and was also noted to have elevated proBNP. Cardiology was consulted. This morning on my examination patient is alert and oriented. His INR remains subtherapeutic. CM consulted for DC planning. 09/06: Patient still in A. fib but RVR has improved. Will start patient on his home medication. Again counseling provided to the patient with importance of better management. Await cardiology input. Anticipate discharge in a.m. 09/07: Diltiazem changed to p.o. 09/08: Haldol as needed Hospitalist Physical - Constitutional Vitals: Temp Pulse Resp BP Pulse Ox 97.8 F 55 L 16 103/54 98 09/10/20 14:00 09/10/20 14:10 09/10/20 14:00 09/10/20 14:10 09/10/20 10:00 General appearance: Present: no acute distress, well-nourished - EENT Eyes: Present: PERRL, EOM intact ENT: hearing decreased, poor dentition - Neck Neck: Present: normal ROM - Respiratory Respiratory effort: normal Respiratory: bilateral: CTA - Cardiovascular Rhythm: regular Heart Sounds: Present: S1 & S2. Absent: systolic murmur, diastolic murmur - Extremities Extremities: no ischemia, pulses intact, pulses symmetrical, No edema, normal temperature, normal color, Full ROM Peripheral Pulses: within normal limits - Abdominal General gastrointestinal: soft, non-tender, normal bowel sounds - Integumentary Integumentary: Present: clear, warm, dry - Psychiatric Psychiatric: appropriate mood/affect, cooperative - Neurologic Neurologic: CNII-XII intact, no focal deficits, moves all extremities - Allied Health Allied health notes reviewed: nursing HEART Score - HEART Score Troponin: Troponin T < 0.010 ng/mL (0.00-0.029) 09/05/20 23:31 Results - Labs CBC & Chem 7: 09/06/20 03:51 09/10/20 04:35 Labs: Laboratory Last Values WBC 5.9 K/mm3 (4.5-11.0) 09/06/20 03:51 RBC 4.95 M/mm3 (3.65-5.03) 09/06/20 03:51 Hgb 16.1 gm/dl (11.8-15.2) H 09/06/20 03:51 Hct 47.9 % (35.5-45.6) H 09/06/20 03:51 MCV 97 fl (84-94) H 09/06/20 03:51 MCH 33 pg (28-32) H 09/06/20 03:51 MCHC 34 % (32-34) 09/06/20 03:51 RDW 14.8 % (13.2-15.2) 09/06/20 03:51 Plt Count 100 K/mm3 (140-440) L 09/06/20 03:51 Lymph % (Auto) 17.3 % (13.4-35.0) 09/05/20 18:04 Dawson % (Auto) Webmethods Architect 09/06/20 03:51 Eos % (Auto) 0.8 % (0.0-4.3) 09/05/20 18:04 Baso % (Auto) Webmethods Architect 09/06/20 03:51 Lymph # (Auto) 1.0 K/mm3 (1.2-5.4) L 09/05/20 18:04 Dawson # (Auto) 0.7 K/mm3 (0.0-0.8) 09/05/20 18:04 Eos # (Auto) 0.0 K/mm3 (0.0-0.4) 09/05/20 18:04 Baso # (Auto) 0.0 K/mm3 (0.0-0.1) 09/05/20 18:04 Add Manual Diff Complete 09/06/20 03:51 Total Counted 100 09/06/20 03:51 Seg Neutrophils % 68.0 % (40.0-70.0) 09/05/20 18:04 Seg Neuts % (Manual) 74.0 % (40.0-70.0) H 09/06/20 03:51 Band Neutrophils % 0 % 09/06/20 03:51 Lymphocytes % (Manual) 22.0 % (13.4-35.0) 09/06/20 03:51 Reactive Lymphs % (Man) 0 % 09/06/20 03:51 Monocytes % (Manual) 4.0 % (0.0-7.3) 09/06/20 03:51 Eosinophils % (Manual) 0 % (0.0-4.3) 09/06/20 03:51 Basophils % (Manual) 0 % (0.0-1.8) 09/06/20 03:51 Metamyelocytes % 0 % 09/06/20 03:51 Myelocytes % 0 % 09/06/20 03:51 Promyelocytes % 0 % 09/06/20 03:51 Blast Cells % 0 % 09/06/20 03:51 Nucleated RBC % Not Reportable 09/06/20 03:51 Seg Neutrophils # 3.9 K/mm3 (1.8-7.7) 09/05/20 18:04 Seg Neutrophils # Man 4.4 K/mm3 (1.8-7.7) 09/06/20 03:51 Band Neutrophils # 0.0 K/mm3 09/06/20 03:51 Lymphocytes # (Manual) 1.3 K/mm3 (1.2-5.4) 09/06/20 03:51 Abs React Lymphs (Man) 0.0 K/mm3 09/06/20 03:51 Monocytes # (Manual) 0.2 K/mm3 (0.0-0.8) 09/06/20 03:51 Eosinophils # (Manual) 0.0 K/mm3 (0.0-0.4) 09/06/20 03:51 Basophils # (Manual) 0.0 K/mm3 (0.0-0.1) 09/06/20 03:51 Metamyelocytes # 0.0 K/mm3 09/06/20 03:51 Myelocytes # 0.0 K/mm3 09/06/20 03:51 Promyelocytes # 0.0 K/mm3 09/06/20 03:51 Blast Cells # 0.0 K/mm3 09/06/20 03:51 WBC Morphology Not Reportable 09/06/20 03:51 Hypersegmented Neuts Not Reportable 09/06/20 03:51 Hyposegmented Neuts Not Reportable 09/06/20 03:51 Hypogranular Neuts Not Reportable 09/06/20 03:51 Smudge Cells Not Reportable 09/06/20 03:51 Toxic Granulation Not Reportable 09/06/20 03:51 Toxic Vacuolation Not Reportable 09/06/20 03:51 Dohle Bodies Not Reportable 09/06/20 03:51 Pelger-Huet Anomaly Not Reportable 09/06/20 03:51 Yasmin Rods Not Reportable 09/06/20 03:51 Platelet Estimate Consistent w auto 09/06/20 03:51 Clumped Platelets Not Reportable 09/06/20 03:51 Plt Clumps, EDTA Not Reportable 09/06/20 03:51 Large Platelets Not Reportable 09/06/20 03:51 Giant Platelets Not Reportable 09/06/20 03:51 Platelet Satelliting Not Reportable 09/06/20 03:51 Plt Morphology Comment Not Reportable 09/06/20 03:51 RBC Morphology Not Reportable 09/06/20 03:51 Dimorphic RBCs Not Reportable 09/06/20 03:51 Polychromasia Not Reportable 09/06/20 03:51 Hypochromasia Not Reportable 09/06/20 03:51 Poikilocytosis Not Reportable 09/06/20 03:51 Anisocytosis Not Reportable 09/06/20 03:51 Microcytosis Not Reportable 09/06/20 03:51 Macrocytosis Not Reportable 09/06/20 03:51 Spherocytes Not Reportable 09/06/20 03:51 Pappenheimer Bodies Not Reportable 09/06/20 03:51 Sickle Cells Not Reportable 09/06/20 03:51 Target Cells Not Reportable 09/06/20 03:51 Tear Drop Cells Not Reportable 09/06/20 03:51 Ovalocytes Not Reportable 09/06/20 03:51 Helmet Cells Not Reportable 09/06/20 03:51 Lewis-Conetoe Bodies Not Reportable 09/06/20 03:51 Harper Rings Not Reportable 09/06/20 03:51 Stepan Cells Not Reportable 09/06/20 03:51 Bite Cells Not Reportable 09/06/20 03:51 Crenated Cell Not Reportable 09/06/20 03:51 Elliptocytes Not Reportable 09/06/20 03:51 Acanthocytes (Spur) Not Reportable 09/06/20 03:51 Rouleaux Not Reportable 09/06/20 03:51 Hemoglobin C Crystals Not Reportable 09/06/20 03:51 Schistocytes Not Reportable 09/06/20 03:51 Malaria parasites Not Reportable 09/06/20 03:51 Ki Bodies Not Reportable 09/06/20 03:51 Hem Pathologist Commnt No 09/06/20 03:51 PT 17.0 Sec. (12.2-14.9) H 09/10/20 04:35 INR 1.35 (0.87-1.13) H 09/10/20 04:35 APTT 28.2 Sec. (24.2-36.6) 09/05/20 18:04 ABG pH 7.454 pH Units (7.350-7.450) H 09/07/20 17:20 ABG pCO2 35.2 mm Hg 09/07/20 17:20 ABG pO2 69.9 mm Hg (80.0-90.0) L 09/07/20 17:20 ABG HCO3 24.2 mmol/L (20.0-26.0) 09/07/20 17:20 ABG O2 Saturation 94.6 % (95.0-99.0) L 09/07/20 17:20 ABG O2 Content 22.1 (0.0-44) 09/07/20 17:20 ABG Base Excess 0.8 mmol/L (-2.0-3.0) 09/07/20 17:20 ABG Hemoglobin 17.0 gm/dl (14.0-18.0) 09/07/20 17:20 ABG Carboxyhemoglobin 1.6 % (0.0-5.0) 09/07/20 17:20 ABG Methemoglobin 0.5 % (0.0-1.5) 09/07/20 17:20 Oxyhemoglobin 92.6 % (95.0-99.0) L 09/07/20 17:20 FiO2 21 % 09/07/20 17:20 Sodium 139 mmol/L (137-145) 09/10/20 04:35 Potassium 3.7 mmol/L (3.6-5.0) 09/10/20 04:35 Chloride 100.1 mmol/L (98-107) 09/10/20 04:35 Carbon Dioxide 25 mmol/L (22-30) 09/10/20 04:35 Anion Gap 18 mmol/L 09/10/20 04:35 BUN 28 mg/dL (9-20) H 09/10/20 04:35 Creatinine 1.1 mg/dL (0.8-1.3) 09/10/20 04:35 Estimated GFR > 60 ml/min 09/10/20 04:35 BUN/Creatinine Ratio 25 % 09/10/20 04:35 Glucose 101 mg/dL (75-100) H 09/10/20 04:35 POC Glucose 64 (70-105) L 09/09/20 08:16 Calcium 8.9 mg/dL (8.4-10.2) 09/10/20 04:35 Magnesium 1.80 mg/dL (1.7-2.3) 09/09/20 05:15 Total Bilirubin 0.50 mg/dL (0.1-1.2) 09/05/20 18:04 AST 26 units/L (5-40) 09/05/20 18:04 ALT 12 units/L (7-56) 09/05/20 18:04 Alkaline Phosphatase 106 units/L (35-129) 09/05/20 18:04 Troponin T < 0.010 ng/mL (0.00-0.029) 09/05/20 23:31 NT-Pro-B Natriuret Pep 2644 pg/mL (0-900) H 09/05/20 18:04 Total Protein 9.0 g/dL (6.3-8.2) H 09/05/20 18:04 Albumin 3.2 g/dL (3.9-5) L 09/05/20 18:04 Albumin/Globulin Ratio 0.6 % 09/05/20 18:04 TSH 1.650 mlU/mL (0.270-4.200) 09/05/20 18:11 Free T4 1.19 ng/dL (0.76-1.46) 09/05/20 18:11 Digoxin 0.3 ng/mL (0.9-2.0) L 09/05/20 18:04 Plasma/Serum Alcohol 0.07 % (0-0.07) 09/05/20 18:04 Jett/IV: Voiding Method Condom Catheter IV Catheter Type [Right INT / Saline Lock Forearm] IV Catheter Type [Left INT / Saline Lock Antecubital] Active Medications - Current Medications Current Medications: Generic Name Dose Route Start Last Admin Trade Name Freq PRN Reason Stop Dose Admin Acetaminophen 650 mg 09/05/20 22:32 09/07/20 21:35 Tylenol PO 650 mg Q6H PRN Administration Pain MILD(1-3)/Fever >100.5/GILLESPIE Digoxin 0.25 mg 09/06/20 17:00 09/10/20 09:31 Lanoxin PO 0.25 mg DAILY@1700 LUZMARIA Administration Diltiazem HCl 60 mg 09/08/20 10:33 09/10/20 09:41 Cardizem PO 60 mg Q8H LUZMARIA Administration Furosemide 20 mg 09/06/20 06:00 09/10/20 05:25 Lasix IV 20 mg 0600,1800 LUZMARIA Administration Haloperidol Lactate 2 mg 09/08/20 14:03 Haldol IM Q12HR PRN Agitation Lisinopril 10 mg 09/09/20 10:00 09/10/20 14:10 Zestril PO Not Given QDAY LUZMARIA Lorazepam 2 mg 09/05/20 22:09 Ativan PO Q1HR PRN CIWA-Ar 8-15 Lorazepam 2 mg 09/05/20 22:09 09/08/20 12:15 Ativan IV 2 mg Q1HR PRN Administration CIWA-Ar 8-15 Lorazepam 4 mg 09/05/20 22:09 09/08/20 17:10 Ativan IV 4 mg Q1HR PRN Administration CIWA-Ar 16-25 Magnesium Hydroxide 30 ml 09/05/20 22:32 Milk Of Magnesia PO Q4H PRN Constipation Magnesium Oxide 400 mg 09/06/20 22:00 09/10/20 09:32 Mag-Ox PO 400 mg BID LUZMARIA Administration Metoprolol Tartrate 50 mg 09/06/20 22:00 09/10/20 09:32 Metoprolol PO 50 mg BID LUZMARIA Administration Morphine Sulfate 2 mg 09/05/20 22:32 09/06/20 11:18 Morphine IV 2 mg Q5MIN PRN Administration Chest Pain unrelieved by NTG Ondansetron HCl 4 mg 09/05/20 22:32 09/06/20 11:18 Zofran IV 4 mg Q8H PRN Administration Nausea And Vomiting Sodium Chloride 10 ml 09/06/20 10:00 09/10/20 14:11 Sodium Chloride Flush Syringe 10 Ml IV 10 ml BID LUZMARIA Administration Sodium Chloride 10 ml 09/05/20 22:32 Sodium Chloride Flush Syringe 10 Ml IV PRN PRN LINE FLUSH Spironolactone 25 mg 09/07/20 10:00 09/10/20 09:32 Aldactone PO 25 mg QDAY LUZMARIA Administration Warfarin Sodium 7.5 mg 09/06/20 17:00 09/08/20 17:15 Coumadin PO 7.5 mg DAILY@1700 LUZMARIA Administration Protocol Nutrition/Malnutrition Assess - Dietary Evaluation Nutrition/Malnutrition Findings: Nutrition Notes Start: 09/06/20 14:03 Freq: Status: Active Protocol: Document 09/10/20 11:57 MEET (Rec: 09/10/20 11:59 MEET [id number]) Co-Sign 09/10/20 11:57 LM Nutrition Notes Initial or Follow up Brief Note Current Diagnosis Hypertension,Heart Failure Other Pertinent Diagnosis Afib, ETOH abuse Current Diet Cardiac Subjective/Other Information F/U for assessment and intakes . Pt reports consuming 100% meals, good appetite, and no recent wt loss. Nutrition Intervention Follow-Up By: 09/11/20 Additional Comments F/U for DNI education
[2020-09-10] MEDS: WARFARIN 7.5 MG TAB PO SCH (18:32)
[2020-09-11 04:30] LABS: INR 1.27 (0.87-1.13)
[2020-09-11 04:32] LABS: BUN/Creatinine Ratio 27; Blood Urea Nitrogen 30 mg/dL (9-20); Calcium 8.8 mg/dL (8.4-10.2); Hemolysis Index 7
--- NOTE | 2020-09-11 09:45 | Progress Note ---
Assessment and Plan Persistent atrial fibrillation - rate controlled Cardiomyopathy, non-ischemia MPI 05/2020 - No ischemia Echo 05/2020 - LVEF 35%, mild MS and left atrial dilatation. Hx of Alcohol abuse Non-compliance Recommendations: Continue metoprolol, diltiazem and digoxin for rate control of persistent atrial fibrillation. Continue warfarin for oral anticoagulation. Otherwise, conservative cardiac management. Subjective Date of service: 09/11/20 Principal diagnosis: Atrial fibrillation Interval history: Afib with a well controlled ventricular rate on telemetry. Today's INR is 1.27. Objective Vital Signs Temp Pulse Resp BP BP Pulse Ox 09/11/20 08:42 98.1 F 84 18 92/60 96 09/11/20 03:41 97.3 F L 63 16 134/86 96 09/11/20 02:00 75 09/10/20 23:25 98.6 F 75 18 130/65 94 09/10/20 22:00 18 98 09/10/20 21:50 64 141/111 09/10/20 19:39 97.8 F 64 16 141/111 93 09/10/20 16:27 98.0 F 64 18 138/91 98 09/10/20 14:10 55 L 103/54 09/10/20 14:00 97.8 F 44 L 16 103/54 09/10/20 10:00 18 98 - Physical Examination General: No Apparent Distress HEENT: Positive: PERRL Neck: Positive: neck supple Cardiac: Positive: irregularly irregular Neuro: Positive: Grossly Intact Extremities: Absent: edema - Labs and Meds Coagulation 09/11/20 Range/Units 03:54 PT 16.2 H (12.2-14.9) Sec. INR 1.27 H (0.87-1.13) Comprehensive Metabolic Panel 09/11/20 Range/Units 03:54 Sodium 135 L (137-145) mmol/L Potassium 4.1 (3.6-5.0) mmol/L Chloride 99.0 (98-107) mmol/L Carbon Dioxide 26 (22-30) mmol/L BUN 30 H (9-20) mg/dL Creatinine 1.1 (0.8-1.3) mg/dL Glucose 93 (75-100) mg/dL Calcium 8.8 (8.4-10.2) mg/dL
[2020-09-11] MEDS: dilTIAZem 30 MG TAB PO SCH ×4 (12:46→18:00)
[2020-09-11] MEDS: MAGNESIUM OXIDE 400 MG TAB PO SCH ×2 (12:46→22:36)
[2020-09-11] MEDS: SPIRONOLACTONE 25 MG TAB PO SCH (12:46)
[2020-09-11] MEDS: LISINOPRIL 5 MG TAB PO SCH (12:47)
[2020-09-11] MEDS: METOPROLOL TARTRATE 50 MG TAB PO SCH ×2 (12:47→22:36)
[2020-09-11] MEDS: FUROSEMIDE 40 MG TAB PO SCH (12:47)
--- NOTE | 2020-09-11 14:00 | Progress Note ---
Assessment and Plan Patient sitting up in bed. Still sleepy. O2 saturation reported 98% on room air . No acute respiratory distress. Patient afebrile. No leukocytosis. ABG on room air ABG pH 7.454 pH Units (7.350-7.450) H 09/07/20 17:20 ABG pCO2 35.2 mm Hg 09/07/20 17:20 ABG pO2 69.9 mm Hg (80.0-90.0) L 09/07/20 17:20 ABG O2 Saturation 94.6 % (95.0-99.0) L 09/07/20 17:20 - Patient Problems (1) Atrial fibrillation with rapid ventricular response Current Visit: Yes Status: Acute Plan to address problem: Patient is on digoxin and coumsdin. Management as per cardiology. (2) Chest pain Current Visit: Yes Status: Acute Plan to address problem: Management as per cardiology. (3) Shortness of breath Current Visit: Yes Status: Acute Plan to address problem: Could be related to his heart condition. Counselled to stop smoking. PFTs as out patient. (4) Alcohol abuse Current Visit: Yes Status: Chronic Plan to address problem: Management as per primary care. (5) Hypomagnesemia Current Visit: Yes Status: Resolved Plan to address problem: Supplementing Magnesium. Subjective Date of service: 09/11/20 Principal diagnosis: Atrial fibrillation Interval history: Patient sitting up in bed. Still sleepy.. O2 saturation reported 98% on room air . No acute respiratory distress. Patient afebrile. No leukocytosis. ABG on room air ABG pH 7.454 pH Units (7.350-7.450) H 09/07/20 17:20 ABG pCO2 35.2 mm Hg 09/07/20 17:20 ABG pO2 69.9 mm Hg (80.0-90.0) L 09/07/20 17:20 ABG O2 Saturation 94.6 % (95.0-99.0) L 09/07/20 17:20 Objective Vital Signs - 12hr 09/11/20 09/11/20 09/11/20 02:00 03:41 08:42 Temperature 97.3 F L 98.1 F Pulse Rate 75 63 84 Respiratory 16 18 Rate Blood Pressure 134/86 92/60 O2 Sat by Pulse 96 96 Oximetry 10/09/11/20 09/11/20 11:29 12:46 12:47 Temperature 97.9 F Pulse Rate 66 84 84 Respiratory 18 Rate Blood Pressure 119/74 O2 Sat by Pulse 98 Oximetry 09/11/20 09/11/20 12:48 12:50 Temperature Pulse Rate 84 84 Respiratory Rate Blood Pressure O2 Sat by Pulse Oximetry Constitutional: no acute distress, other (Patient sitting up in bed, still feeling sleepy.) Eyes: non-icteric ENT: oropharynx moist Neck: supple, no JVD Effort: mildly labored Ascultation: Bilateral: other (Prolonged expiratory phase.) Cardiovascular: irregular rhythm Gastrointestinal: normoactive bowel sounds, soft, non-tender Integumentary: normal Extremities: no cyanosis, no edema Neurologic: normal mental status, non-focal exam, pupils equal and round, CN II- XII normal Psychiatric: depressed CBC and BMP: 09/06/20 03:51 09/11/20 03:54 ABG, PT/INR, D-dimer: ABG ABG pH 7.454 pH Units (7.350-7.450) H 09/07/20 17:20 ABG pCO2 35.2 mm Hg 09/07/20 17:20 ABG pO2 69.9 mm Hg (80.0-90.0) L 09/07/20 17:20 ABG O2 Saturation 94.6 % (95.0-99.0) L 09/07/20 17:20 PT/INR, D-dimer PT 16.2 Sec. (12.2-14.9) H 09/11/20 03:54 INR 1.27 (0.87-1.13) H 09/11/20 03:54 Abnormal lab findings: Abnormal Labs 09/05/20 09/05/20 09/05/20 18:04 18:04 18:04 Hgb 16.1 H Hct 47.6 H MCV 97 H MCH 33 H Plt Count 108 L [place] % (Auto) 13.0 H Lymph # (Auto) 1.0 L Seg Neuts % (Manual) PT INR ABG pH ABG pO2 ABG O2 Saturation Oxyhemoglobin Sodium 136 L Potassium Chloride Carbon Dioxide 20 L BUN Creatinine Glucose POC Glucose Magnesium NT-Pro-B Natriuret Pep Total Protein 9.0 H Albumin 3.2 L Digoxin 0.3 L 09/05/20 09/05/20 09/06/20 18:04 18:04 03:51 Hgb 16.1 H Hct 47.9 H MCV 97 H MCH 33 H Plt Count 100 L [place] % (Auto) Lymph # (Auto) Seg Neuts % (Manual) 74.0 H PT INR ABG pH ABG pO2 ABG O2 Saturation Oxyhemoglobin Sodium Potassium Chloride Carbon Dioxide BUN Creatinine Glucose POC Glucose Magnesium 1.50 L NT-Pro-B Natriuret Pep 2644 H Total Protein Albumin Digoxin 09/06/20 09/06/20 09/06/20 03:51 03:51 04:04 Hgb Hct MCV MCH Plt Count [place] % (Auto) Lymph # (Auto) Seg Neuts % (Manual) PT 15.0 H INR 1.16 H ABG pH ABG pO2 ABG O2 Saturation Oxyhemoglobin Sodium 134 L Potassium Chloride 97.5 L Carbon Dioxide BUN Creatinine Glucose POC Glucose Magnesium 1.50 L NT-Pro-B Natriuret Pep Total Protein Albumin Digoxin 09/07/20 09/07/20 09/08/20 06:11 17:20 04:46 Hgb Hct MCV MCH Plt Count [place] % (Auto) Lymph # (Auto) Seg Neuts % (Manual) PT 15.0 H INR 1.16 H ABG pH 7.454 H ABG pO2 69.9 L ABG O2 Saturation 94.6 L Oxyhemoglobin 92.6 L Sodium Potassium Chloride Carbon Dioxide BUN Creatinine Glucose POC Glucose Magnesium 1.40 L NT-Pro-B Natriuret Pep Total Protein Albumin Digoxin 09/08/20 09/09/20 09/09/20 04:46 05:15 05:15 Hgb Hct MCV MCH Plt Count [place] % (Auto) Lymph # (Auto) Seg Neuts % (Manual) PT 16.5 H INR 1.30 H ABG pH ABG pO2 ABG O2 Saturation Oxyhemoglobin Sodium Potassium 3.5 L 3.5 L Chloride Carbon Dioxide BUN Creatinine 0.7 L Glucose POC Glucose Magnesium 1.50 L NT-Pro-B Natriuret Pep Total Protein Albumin Digoxin 09/09/20 09/10/20 09/10/20 08:16 04:35 04:35 Hgb Hct MCV MCH Plt Count [place] % (Auto) Lymph # (Auto) Seg Neuts % (Manual) PT 17.0 H INR 1.35 H ABG pH ABG pO2 ABG O2 Saturation Oxyhemoglobin Sodium Potassium Chloride Carbon Dioxide BUN 28 H Creatinine Glucose 101 H POC Glucose 64 L Magnesium NT-Pro-B Natriuret Pep Total Protein Albumin Digoxin 09/11/20 09/11/20 03:54 03:54 Hgb Hct MCV MCH Plt Count [place] % (Auto) Lymph # (Auto) Seg Neuts % (Manual) PT 16.2 H INR 1.27 H ABG pH ABG pO2 ABG O2 Saturation Oxyhemoglobin Sodium 135 L Potassium Chloride Carbon Dioxide BUN 30 H Creatinine Glucose POC Glucose Magnesium NT-Pro-B Natriuret Pep Total Protein Albumin Digoxin
--- NOTE | 2020-09-11 16:52 | Progress Note ---
<[email or web address] - Last Filed: 09/11/20 16:54> 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 transcription specialist Cardiology consult, appreciate recommendations Continue metoprolol, diltiazem and digoxin for rate control Continue warfarin with a target INR 2-3 - pharmacy to dose (2) Systolic CHF Current Visit: Yes Status: Acute Qualifiers: Heart failure chronicity: acute on chronic Qualified Code(s): I50.23 - Acute on chronic systolic (congestive) heart failure Plan to address problem: ASA, diuretic, and rate control with BB and digoxin Anticoagulation with warfarin, PKS consulted Strict intake and output Daily weights 05/2020 Echocardiogram shows EF of 30 to 35% with cardiomyopathy, mild MS and mild dilation of left atrium. 05/2020 Lexiscan stress test was negative for ischemia (3) Noncompliance with medication regimen Current Visit: Yes Status: Chronic Plan to address problem: Compliance with medication is encouraged. Patient verbalized understanding. CM consulted (4) Alcohol abuse Current Visit: Yes Status: Chronic Plan to address problem: Alcohol cessation counseling provided CIWA protocol As needed Ativan and IM Haldol Fall and aspiration precautions (5) DVT prophylaxis Current Visit: Yes Status: Acute Plan to address problem: Systemic anticoagulation with warfarin SCDs bilateral extremities while in bed History Interval history: 60-year-old male with atrial fibrillation, HFrEF (30-35%), hypertension, medical noncompliance, alcohol abuse (~4 beers/day) and tobacco abuse presented to the emergency room on 09/05 with shortness of breath and chest pain which has been ongoing for about 3 days with some nausea but no vomiting and mild swelling in his lower extremities. He was admitted with A. fib with RVR and was given Cardizem IV and started on a Cardizem drip in the emergency department and was also noted to have elevated proBNP. Cardiology was consulted. This morning on my examination patient is alert and oriented. His INR remains subtherapeutic, PKS following. Cleared for DC from cardiology. PT consulted as RN states pt is a one person assist. he iimformed me today that he only has one friend here who helps him and his family is out of state. 09/06: Patient still in A. fib but RVR has improved. Will start patient on his home medication. Again counseling provided to the patient with importance of better management. Await cardiology input. Anticipate discharge in a.m. 09/07: Diltiazem changed to p.o. 09/08: Haldol as needed 09/09: suptheraputic INR, B wrist restraints in place 09/10: CM consulted Hospitalist Physical - Constitutional Vitals: Temp Pulse Resp BP Pulse Ox 97.9 F 84 18 119/74 98 09/11/20 11:29 09/11/20 12:50 09/11/20 11:29 09/11/20 11:29 09/11/20 11:29 General appearance: Present: no acute distress, well-nourished - EENT Eyes: Present: EOM intact ENT: hearing decreased, poor dentition - Neck Neck: Present: supple, normal ROM - Respiratory Respiratory effort: normal Respiratory: bilateral: CTA - Cardiovascular Rhythm: regular Heart Sounds: Present: S1 & S2. Absent: systolic murmur, diastolic murmur - Extremities Extremities: no ischemia, pulses intact, pulses symmetrical, No edema, normal temperature, normal color, Full ROM Peripheral Pulses: within normal limits - Abdominal General gastrointestinal: soft, non-tender, non-distended, normal bowel sounds - Integumentary Integumentary: Present: clear, warm, dry - Psychiatric Psychiatric: cooperative - Neurologic Neurologic: CNII-XII intact, no focal deficits, moves all extremities HEART Score - HEART Score Troponin: Troponin T < 0.010 ng/mL (0.00-0.029) 09/05/20 23:31 Results - Labs CBC & Chem 7: 09/06/20 03:51 09/11/20 03:54 Labs: Laboratory Last Values WBC 5.9 K/mm3 (4.5-11.0) 09/06/20 03:51 RBC 4.95 M/mm3 (3.65-5.03) 09/06/20 03:51 Hgb 16.1 gm/dl (11.8-15.2) H 09/06/20 03:51 Hct 47.9 % (35.5-45.6) H 09/06/20 03:51 MCV 97 fl (84-94) H 09/06/20 03:51 MCH 33 pg (28-32) H 09/06/20 03:51 MCHC 34 % (32-34) 09/06/20 03:51 RDW 14.8 % (13.2-15.2) 09/06/20 03:51 Plt Count 100 K/mm3 (140-440) L 09/06/20 03:51 Lymph % (Auto) 17.3 % (13.4-35.0) 09/05/20 18:04 [place] % (Auto) [facility] 09/06/20 03:51 Eos % (Auto) 0.8 % (0.0-4.3) 09/05/20 18:04 Baso % (Auto) [facility] 09/06/20 03:51 Lymph # (Auto) 1.0 K/mm3 (1.2-5.4) L 09/05/20 18:04 [place] # (Auto) 0.7 K/mm3 (0.0-0.8) 09/05/20 18:04 Eos # (Auto) 0.0 K/mm3 (0.0-0.4) 09/05/20 18:04 Baso # (Auto) 0.0 K/mm3 (0.0-0.1) 09/05/20 18:04 Add Manual Diff Complete 09/06/20 03:51 Total Counted 100 09/06/20 03:51 Seg Neutrophils % 68.0 % (40.0-70.0) 09/05/20 18:04 Seg Neuts % (Manual) 74.0 % (40.0-70.0) H 09/06/20 03:51 Band Neutrophils % 0 % 09/06/20 03:51 Lymphocytes % (Manual) 22.0 % (13.4-35.0) 09/06/20 03:51 Reactive Lymphs % (Man) 0 % 09/06/20 03:51 Monocytes % (Manual) 4.0 % (0.0-7.3) 09/06/20 03:51 Eosinophils % (Manual) 0 % (0.0-4.3) 09/06/20 03:51 Basophils % (Manual) 0 % (0.0-1.8) 09/06/20 03:51 Metamyelocytes % 0 % 09/06/20 03:51 Myelocytes % 0 % 09/06/20 03:51 Promyelocytes % 0 % 09/06/20 03:51 Blast Cells % 0 % 09/06/20 03:51 Nucleated RBC % Not Reportable 09/06/20 03:51 Seg Neutrophils # 3.9 K/mm3 (1.8-7.7) 09/05/20 18:04 Seg Neutrophils # Man 4.4 K/mm3 (1.8-7.7) 09/06/20 03:51 Band Neutrophils # 0.0 K/mm3 09/06/20 03:51 Lymphocytes # (Manual) 1.3 K/mm3 (1.2-5.4) 09/06/20 03:51 Abs React Lymphs (Man) 0.0 K/mm3 09/06/20 03:51 Monocytes # (Manual) 0.2 K/mm3 (0.0-0.8) 09/06/20 03:51 Eosinophils # (Manual) 0.0 K/mm3 (0.0-0.4) 09/06/20 03:51 Basophils # (Manual) 0.0 K/mm3 (0.0-0.1) 09/06/20 03:51 Metamyelocytes # 0.0 K/mm3 09/06/20 03:51 Myelocytes # 0.0 K/mm3 09/06/20 03:51 Promyelocytes # 0.0 K/mm3 09/06/20 03:51 Blast Cells # 0.0 K/mm3 09/06/20 03:51 WBC Morphology Not Reportable 09/06/20 03:51 Hypersegmented Neuts Not Reportable 09/06/20 03:51 Hyposegmented Neuts Not Reportable 09/06/20 03:51 Hypogranular Neuts Not Reportable 09/06/20 03:51 Smudge Cells Not Reportable 09/06/20 03:51 Toxic Granulation Not Reportable 09/06/20 03:51 Toxic Vacuolation Not Reportable 09/06/20 03:51 Dohle Bodies Not Reportable 09/06/20 03:51 Pelger-Huet Anomaly Not Reportable 09/06/20 03:51 Yasmin Rods Not Reportable 09/06/20 03:51 Platelet Estimate Consistent w auto 09/06/20 03:51 Clumped Platelets Not Reportable 09/06/20 03:51 Plt Clumps, EDTA Not Reportable 09/06/20 03:51 Large Platelets Not Reportable 09/06/20 03:51 Giant Platelets Not Reportable 09/06/20 03:51 Platelet Satelliting Not Reportable 09/06/20 03:51 Plt Morphology Comment Not Reportable 09/06/20 03:51 RBC Morphology Not Reportable 09/06/20 03:51 Dimorphic RBCs Not Reportable 09/06/20 03:51 Polychromasia Not Reportable 09/06/20 03:51 Hypochromasia Not Reportable 09/06/20 03:51 Poikilocytosis Not Reportable 09/06/20 03:51 Anisocytosis Not Reportable 09/06/20 03:51 Microcytosis Not Reportable 09/06/20 03:51 Macrocytosis Not Reportable 09/06/20 03:51 Spherocytes Not Reportable 09/06/20 03:51 Pappenheimer Bodies Not Reportable 09/06/20 03:51 Sickle Cells Not Reportable 09/06/20 03:51 Target Cells Not Reportable 09/06/20 03:51 Tear Drop Cells Not Reportable 09/06/20 03:51 Ovalocytes Not Reportable 09/06/20 03:51 Helmet Cells Not Reportable 09/06/20 03:51 [place] Bodies Not Reportable 09/06/20 03:51 Pierce Rings Not Reportable 09/06/20 03:51 [place] Cells Not Reportable 09/06/20 03:51 Bite Cells Not Reportable 09/06/20 03:51 Crenated Cell Not Reportable 09/06/20 03:51 Elliptocytes Not Reportable 09/06/20 03:51 Acanthocytes (Spur) Not Reportable 09/06/20 03:51 Rouleaux Not Reportable 09/06/20 03:51 Hemoglobin C Crystals Not Reportable 09/06/20 03:51 Schistocytes Not Reportable 09/06/20 03:51 Malaria parasites Not Reportable 09/06/20 03:51 Ki Bodies Not Reportable 09/06/20 03:51 Hem Pathologist Commnt No 09/06/20 03:51 PT 16.2 Sec. (12.2-14.9) H 09/11/20 03:54 INR 1.27 (0.87-1.13) H 09/11/20 03:54 APTT 28.2 Sec. (24.2-36.6) 09/05/20 18:04 ABG pH 7.454 pH Units (7.350-7.450) H 09/07/20 17:20 ABG pCO2 35.2 mm Hg 09/07/20 17:20 ABG pO2 69.9 mm Hg (80.0-90.0) L 09/07/20 17:20 ABG HCO3 24.2 mmol/L (20.0-26.0) 09/07/20 17:20 ABG O2 Saturation 94.6 % (95.0-99.0) L 09/07/20 17:20 ABG O2 Content 22.1 (0.0-44) 09/07/20 17:20 ABG Base Excess 0.8 mmol/L (-2.0-3.0) 09/07/20 17:20 ABG Hemoglobin 17.0 gm/dl (14.0-18.0) 09/07/20 17:20 ABG Carboxyhemoglobin 1.6 % (0.0-5.0) 09/07/20 17:20 ABG Methemoglobin 0.5 % (0.0-1.5) 09/07/20 17:20 Oxyhemoglobin 92.6 % (95.0-99.0) L 09/07/20 17:20 FiO2 21 % 09/07/20 17:20 Sodium 135 mmol/L (137-145) L 09/11/20 03:54 Potassium 4.1 mmol/L (3.6-5.0) 09/11/20 03:54 Chloride 99.0 mmol/L (98-107) 09/11/20 03:54 Carbon Dioxide 26 mmol/L (22-30) 09/11/20 03:54 Anion Gap 14 mmol/L 09/11/20 03:54 BUN 30 mg/dL (9-20) H 09/11/20 03:54 Creatinine 1.1 mg/dL (0.8-1.3) 09/11/20 03:54 Estimated GFR > 60 ml/min 09/11/20 03:54 BUN/Creatinine Ratio 27 % 09/11/20 03:54 Glucose 93 mg/dL (75-100) 09/11/20 03:54 POC Glucose 64 (70-105) L 09/09/20 08:16 Calcium 8.8 mg/dL (8.4-10.2) 09/11/20 03:54 Magnesium 1.80 mg/dL (1.7-2.3) 09/09/20 05:15 Total Bilirubin 0.50 mg/dL (0.1-1.2) 09/05/20 18:04 AST 26 units/L (5-40) 09/05/20 18:04 ALT 12 units/L (7-56) 09/05/20 18:04 Alkaline Phosphatase 106 units/L (35-129) 09/05/20 18:04 Troponin T < 0.010 ng/mL (0.00-0.029) 09/05/20 23:31 NT-Pro-B Natriuret Pep 2644 pg/mL (0-900) H 09/05/20 18:04 Total Protein 9.0 g/dL (6.3-8.2) H 09/05/20 18:04 Albumin 3.2 g/dL (3.9-5) L 09/05/20 18:04 Albumin/Globulin Ratio 0.6 % 09/05/20 18:04 TSH 1.650 mlU/mL (0.270-4.200) 09/05/20 18:11 Free T4 1.19 ng/dL (0.76-1.46) 09/05/20 18:11 Digoxin 0.3 ng/mL (0.9-2.0) L 09/05/20 18:04 Plasma/Serum Alcohol 0.07 % (0-0.07) 09/05/20 18:04 Ejtt/IV: Voiding Method Condom Catheter IV Catheter Type [Right INT / Saline Lock Forearm] IV Catheter Type [Left INT / Saline Lock Antecubital] Active Medications - Current Medications Current Medications: Generic Name Dose Route Start Last Admin Trade Name Freq PRN Reason Stop Dose Admin Acetaminophen 650 mg 09/05/20 22:32 09/07/20 21:35 Tylenol PO 650 mg Q6H PRN Administration Pain MILD(1-3)/Fever >100.5/GILLESPIE Digoxin 0.25 mg 09/06/20 17:00 09/10/20 18:19 Lanoxin PO Not Given DAILY@1700 [facility] Diltiazem HCl 60 mg 09/08/20 10:33 09/11/20 12:50 Cardizem PO 60 mg Q8H [facility] Administration Furosemide 40 mg 09/11/20 10:00 09/11/20 12:47 Lasix PO 40 mg QDAY [facility] Administration Haloperidol Lactate 2 mg 09/08/20 14:03 Haldol IM Q12HR PRN Agitation Lisinopril 10 mg 09/09/20 10:00 09/11/20 12:47 Zestril PO 10 mg QDAY [facility] Administration Lorazepam 2 mg 09/05/20 22:09 09/10/20 21:50 Ativan PO 2 mg Q1HR PRN Administration CIWA-Ar 8-15 Lorazepam 2 mg 09/05/20 22:09 09/08/20 12:15 Ativan IV 2 mg Q1HR PRN Administration CIWA-Ar 8-15 Lorazepam 4 mg 09/05/20 22:09 09/08/20 17:10 Ativan IV 4 mg Q1HR PRN Administration CIWA-Ar 16-25 Magnesium Hydroxide 30 ml 09/05/20 22:32 Milk Of Magnesia PO Q4H PRN Constipation Magnesium Oxide 400 mg 09/06/20 22:00 09/11/20 12:46 Mag-Ox PO 400 mg BID [facility] Administration Metoprolol Tartrate 50 mg 09/06/20 22:00 09/11/20 12:47 Metoprolol PO 50 mg BID [facility] Administration Morphine Sulfate 2 mg 09/05/20 22:32 09/06/20 11:18 Morphine IV 2 mg Q5MIN PRN Administration Chest Pain unrelieved by NTG Ondansetron HCl 4 mg 09/05/20 22:32 09/06/20 11:18 Zofran IV 4 mg Q8H PRN Administration Nausea And Vomiting Sodium Chloride 10 ml 09/06/20 10:00 09/11/20 12:51 Sodium Chloride Flush Syringe 10 Ml IV 10 ml BID [facility] Administration Sodium Chloride 10 ml 09/05/20 22:32 Sodium Chloride Flush Syringe 10 Ml IV PRN PRN LINE FLUSH Spironolactone 25 mg 09/07/20 10:00 09/11/20 12:46 Aldactone PO 25 mg QDAY [facility] Administration Warfarin Sodium 8 mg 09/11/20 17:00 Coumadin PO DAILY@1700 [facility] Protocol Nutrition/Malnutrition Assess - Dietary Evaluation Nutrition/Malnutrition Findings: Nutrition Notes Start: 09/06/20 14:03 Freq: Status: Active Protocol: Document 09/11/20 12:52 ROHINI (Rec: 09/11/20 12:56 ROHINI [id number]) Co-Sign 09/11/20 12:52 LP Nutrition Notes Need for Assessment generated from: Education Initial or Follow up Brief Note Current Diagnosis Hypertension,Heart Failure Other Pertinent Diagnosis Afib, ETOH abuse Current Diet Cardiac Subjective/Other Information F/u diet education needs. 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 Discussed heart healthy diet and Vitamin K intake with Coumadin. Nutrition Intervention Teaching Recipient Patient Learning Readiness Good Teaching Methods Discussion,Handout Response to Teaching Verbalize understanding Education Handouts Provided Low sodium Vitamin K and Coumadin Barriers to Learning Language RD phone number provided Yes Patient aware of follow up options Yes Actions To Overcome Barriers Contact Icer Machine Operator Revisit per MD consult or patient Sign Off request: <WALESKA VAIL M - Last Filed: 09/12/20 09:04> Hospitalist Physical - Constitutional Vitals: Temp Pulse Resp BP Pulse Ox 97.9 F 94 H 16 172/105 97 09/12/20 04:00 09/12/20 04:00 09/12/20 04:00 09/12/20 04:00 09/12/20 04:00 HEART Score - HEART Score Troponin: Troponin T < 0.010 ng/mL (0.00-0.029) 09/05/20 23:31 Results - Labs CBC & Chem 7: 09/06/20 03:51 09/11/20 03:54 Labs: Laboratory Last Values WBC 5.9 K/mm3 (4.5-11.0) 09/06/20 03:51 RBC 4.95 M/mm3 (3.65-5.03) 09/06/20 03:51 Hgb 16.1 gm/dl (11.8-15.2) H 09/06/20 03:51 Hct 47.9 % (35.5-45.6) H 09/06/20 03:51 MCV 97 fl (84-94) H 09/06/20 03:51 MCH 33 pg (28-32) H 09/06/20 03:51 MCHC 34 % (32-34) 09/06/20 03:51 RDW 14.8 % (13.2-15.2) 09/06/20 03:51 Plt Count 100 K/mm3 (140-440) L 09/06/20 03:51 Lymph % (Auto) 17.3 % (13.4-35.0) 09/05/20 18:04 [place] % (Auto) [facility] 09/06/20 03:51 Eos % (Auto) 0.8 % (0.0-4.3) 09/05/20 18:04 Baso % (Auto) [facility] 09/06/20 03:51 Lymph # (Auto) 1.0 K/mm3 (1.2-5.4) L 09/05/20 18:04 [place] # (Auto) 0.7 K/mm3 (0.0-0.8) 09/05/20 18:04 Eos # (Auto) 0.0 K/mm3 (0.0-0.4) 09/05/20 18:04 Baso # (Auto) 0.0 K/mm3 (0.0-0.1) 09/05/20 18:04 Add Manual Diff Complete 09/06/20 03:51 Total Counted 100 09/06/20 03:51 Seg Neutrophils % 68.0 % (40.0-70.0) 09/05/20 18:04 Seg Neuts % (Manual) 74.0 % (40.0-70.0) H 09/06/20 03:51 Band Neutrophils % 0 % 09/06/20 03:51 Lymphocytes % (Manual) 22.0 % (13.4-35.0) 09/06/20 03:51 Reactive Lymphs % (Man) 0 % 09/06/20 03:51 Monocytes % (Manual) 4.0 % (0.0-7.3) 09/06/20 03:51 Eosinophils % (Manual) 0 % (0.0-4.3) 09/06/20 03:51 Basophils % (Manual) 0 % (0.0-1.8) 09/06/20 03:51 Metamyelocytes % 0 % 09/06/20 03:51 Myelocytes % 0 % 09/06/20 03:51 Promyelocytes % 0 % 09/06/20 03:51 Blast Cells % 0 % 09/06/20 03:51 Nucleated RBC % Not Reportable 09/06/20 03:51 Seg Neutrophils # 3.9 K/mm3 (1.8-7.7) 09/05/20 18:04 Seg Neutrophils # Man 4.4 K/mm3 (1.8-7.7) 09/06/20 03:51 Band Neutrophils # 0.0 K/mm3 09/06/20 03:51 Lymphocytes # (Manual) 1.3 K/mm3 (1.2-5.4) 09/06/20 03:51 Abs React Lymphs (Man) 0.0 K/mm3 09/06/20 03:51 Monocytes # (Manual) 0.2 K/mm3 (0.0-0.8) 09/06/20 03:51 Eosinophils # (Manual) 0.0 K/mm3 (0.0-0.4) 09/06/20 03:51 Basophils # (Manual) 0.0 K/mm3 (0.0-0.1) 09/06/20 03:51 Metamyelocytes # 0.0 K/mm3 09/06/20 03:51 Myelocytes # 0.0 K/mm3 09/06/20 03:51 Promyelocytes # 0.0 K/mm3 09/06/20 03:51 Blast Cells # 0.0 K/mm3 09/06/20 03:51 WBC Morphology Not Reportable 09/06/20 03:51 Hypersegmented Neuts Not Reportable 09/06/20 03:51 Hyposegmented Neuts Not Reportable 09/06/20 03:51 Hypogranular Neuts Not Reportable 09/06/20 03:51 Smudge Cells Not Reportable 09/06/20 03:51 Toxic Granulation Not Reportable 09/06/20 03:51 Toxic Vacuolation Not Reportable 09/06/20 03:51 Dohle Bodies Not Reportable 09/06/20 03:51 Pelger-Huet Anomaly Not Reportable 09/06/20 03:51 Yasmin Rods Not Reportable 09/06/20 03:51 Platelet Estimate Consistent w auto 09/06/20 03:51 Clumped Platelets Not Reportable 09/06/20 03:51 Plt Clumps, EDTA Not Reportable 09/06/20 03:51 Large Platelets Not Reportable 09/06/20 03:51 Giant Platelets Not Reportable 09/06/20 03:51 Platelet Satelliting Not Reportable 09/06/20 03:51 Plt Morphology Comment Not Reportable 09/06/20 03:51 RBC Morphology Not Reportable 09/06/20 03:51 Dimorphic RBCs Not Reportable 09/06/20 03:51 Polychromasia Not Reportable 09/06/20 03:51 Hypochromasia Not Reportable 09/06/20 03:51 Poikilocytosis Not Reportable 09/06/20 03:51 Anisocytosis Not Reportable 09/06/20 03:51 Microcytosis Not Reportable 09/06/20 03:51 Macrocytosis Not Reportable 09/06/20 03:51 Spherocytes Not Reportable 09/06/20 03:51 Pappenheimer Bodies Not Reportable 09/06/20 03:51 Sickle Cells Not Reportable 09/06/20 03:51 Target Cells Not Reportable 09/06/20 03:51 Tear Drop Cells Not Reportable 09/06/20 03:51 Ovalocytes Not Reportable 09/06/20 03:51 Helmet Cells Not Reportable 09/06/20 03:51 [place] Bodies Not Reportable 09/06/20 03:51 Pierce Rings Not Reportable 09/06/20 03:51 [place] Cells Not Reportable 09/06/20 03:51 Bite Cells Not Reportable 09/06/20 03:51 Crenated Cell Not Reportable 09/06/20 03:51 Elliptocytes Not Reportable 09/06/20 03:51 Acanthocytes (Spur) Not Reportable 09/06/20 03:51 Rouleaux Not Reportable 09/06/20 03:51 Hemoglobin C Crystals Not Reportable 09/06/20 03:51 Schistocytes Not Reportable 09/06/20 03:51 Malaria parasites Not Reportable 09/06/20 03:51 Ki Bodies Not Reportable 09/06/20 03:51 Hem Pathologist Commnt No 09/06/20 03:51 PT 16.2 Sec. (12.2-14.9) H 09/11/20 03:54 INR 1.27 (0.87-1.13) H 09/11/20 03:54 APTT 28.2 Sec. (24.2-36.6) 09/05/20 18:04 ABG pH 7.454 pH Units (7.350-7.450) H 09/07/20 17:20 ABG pCO2 35.2 mm Hg 09/07/20 17:20 ABG pO2 69.9 mm Hg (80.0-90.0) L 09/07/20 17:20 ABG HCO3 24.2 mmol/L (20.0-26.0) 09/07/20 17:20 ABG O2 Saturation 94.6 % (95.0-99.0) L 09/07/20 17:20 ABG O2 Content 22.1 (0.0-44) 09/07/20 17:20 ABG Base Excess 0.8 mmol/L (-2.0-3.0) 09/07/20 17:20 ABG Hemoglobin 17.0 gm/dl (14.0-18.0) 09/07/20 17:20 ABG Carboxyhemoglobin 1.6 % (0.0-5.0) 09/07/20 17:20 ABG Methemoglobin 0.5 % (0.0-1.5) 09/07/20 17:20 Oxyhemoglobin 92.6 % (95.0-99.0) L 09/07/20 17:20 FiO2 21 % 09/07/20 17:20 Sodium 135 mmol/L (137-145) L 09/11/20 03:54 Potassium 4.1 mmol/L (3.6-5.0) 09/11/20 03:54 Chloride 99.0 mmol/L (98-107) 09/11/20 03:54 Carbon Dioxide 26 mmol/L (22-30) 09/11/20 03:54 Anion Gap 14 mmol/L 09/11/20 03:54 BUN 30 mg/dL (9-20) H 09/11/20 03:54 Creatinine 1.1 mg/dL (0.8-1.3) 09/11/20 03:54 Estimated GFR > 60 ml/min 09/11/20 03:54 BUN/Creatinine Ratio 27 % 09/11/20 03:54 Glucose 93 mg/dL (75-100) 09/11/20 03:54 POC Glucose 64 (70-105) L 09/09/20 08:16 Calcium 8.8 mg/dL (8.4-10.2) 09/11/20 03:54 Magnesium 1.80 mg/dL (1.7-2.3) 09/09/20 05:15 Total Bilirubin 0.50 mg/dL (0.1-1.2) 09/05/20 18:04 AST 26 units/L (5-40) 09/05/20 18:04 ALT 12 units/L (7-56) 09/05/20 18:04 Alkaline Phosphatase 106 units/L (35-129) 09/05/20 18:04 Troponin T < 0.010 ng/mL (0.00-0.029) 09/05/20 23:31 NT-Pro-B Natriuret Pep 2644 pg/mL (0-900) H 09/05/20 18:04 Total Protein 9.0 g/dL (6.3-8.2) H 09/05/20 18:04 Albumin 3.2 g/dL (3.9-5) L 09/05/20 18:04 Albumin/Globulin Ratio 0.6 % 09/05/20 18:04 TSH 1.650 mlU/mL (0.270-4.200) 09/05/20 18:11 Free T4 1.19 ng/dL (0.76-1.46) 09/05/20 18:11 Digoxin 0.3 ng/mL (0.9-2.0) L 09/05/20 18:04 Plasma/Serum Alcohol 0.07 % (0-0.07) 09/05/20 18:04 Jett/IV: Voiding Method Condom Catheter IV Catheter Type [Right INT / Saline Lock Forearm] IV Catheter Type [Left INT / Saline Lock Antecubital] Active Medications - Current Medications Current Medications: Generic Name Dose Route Start Last Admin Trade Name Freq PRN Reason Stop Dose Admin Acetaminophen 650 mg 09/05/20 22:32 09/07/20 21:35 Tylenol PO 650 mg Q6H PRN Administration Pain MILD(1-3)/Fever >100.5/[place]ILLES[place]E Digoxin 0.25 mg 09/06/20 17:00 09/11/20 18:17 Lanoxin PO Not Given DAILY@1700 [facility] Diltiazem HCl 60 mg 09/08/20 10:33 09/12/20 03:03 Cardizem PO 60 mg Q8H [facility] Administration Furosemide 40 mg 09/11/20 10:00 09/11/20 12:47 Lasix PO 40 mg QDAY [facility] Administration Haloperidol Lactate 2 mg 09/08/20 14:03 Haldol IM Q12HR PRN Agitation Lisinopril 10 mg 09/09/20 10:00 09/11/20 12:47 Zestril PO 10 mg QDAY [facility] Administration Lorazepam 2 mg 09/05/20 22:09 09/10/20 21:50 Ativan PO 2 mg Q1HR PRN Administration CIWA-Ar 8-15 Lorazepam 2 mg 09/05/20 22:09 09/08/20 12:15 Ativan IV 2 mg Q1HR PRN Administration CIWA-Ar 8-15 Lorazepam 4 mg 09/05/20 22:09 09/08/20 17:10 Ativan IV 4 mg Q1HR PRN Administration CIWA-Ar 16-25 Magnesium Hydroxide 30 ml 09/05/20 22:32 Milk Of Magnesia PO Q4H PRN Constipation Magnesium Oxide 400 mg 09/06/20 22:00 09/11/20 22:36 Mag-Ox PO 400 mg BID [facility] Administration Metoprolol Tartrate 50 mg 09/06/20 22:00 09/11/20 22:36 Metoprolol PO 50 mg BID [facility] Administration Morphine Sulfate 2 mg 09/05/20 22:32 09/06/20 11:18 Morphine IV 2 mg Q5MIN PRN Administration Chest Pain unrelieved by NTG Ondansetron HCl 4 mg 09/05/20 22:32 09/06/20 11:18 Zofran IV 4 mg Q8H PRN Administration Nausea And Vomiting Sodium Chloride 10 ml 09/06/20 10:00 09/11/20 22:36 Sodium Chloride Flush Syringe 10 Ml IV 10 ml BID LUZMARIA Administration Sodium Chloride 10 ml 09/05/20 22:32 Sodium Chloride Flush Syringe 10 Ml IV PRN PRN LINE FLUSH Spironolactone 50 mg 09/12/20 10:00 Aldactone PO QDAY LUZMRAIA Warfarin Sodium 8 mg 09/11/20 17:00 09/11/20 20:29 Coumadin PO 8 mg DAILY@1700 LUZMARIA Administration Protocol Nutrition/Malnutrition Assess - Dietary Evaluation Nutrition/Malnutrition Findings: Nutrition Notes Start: 09/06/20 14:03 Freq: Status: Active Protocol: Document 09/11/20 12:52 ROHINI (Rec: 09/11/20 12:56 ROHINI [id number]) Co-Sign 09/11/20 12:52 LP Nutrition Notes Need for Assessment generated from: Education Initial or Follow up Brief Note Current Diagnosis Hypertension,Heart Failure Other Pertinent Diagnosis Afib, ETOH abuse Current Diet Cardiac Subjective/Other Information F/u diet education needs. 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 Discussed heart healthy diet and Vitamin K intake with Coumadin. Nutrition Intervention Teaching Recipient Patient Learning Readiness Good Teaching Methods Discussion,Handout Response to Teaching Verbalize understanding Education Handouts Provided Low sodium Vitamin K and Coumadin Barriers to Learning Language RD phone number provided Yes Patient aware of follow up options Yes Actions To Overcome Barriers Contact Icer Machine Operator Revisit per MD consult or patient Sign Off request:
[2020-09-11] MEDS: DIGOXIN 0.25 MG TAB PO SCH (18:17)
[2020-09-11] MEDS: WARFARIN 2 MG TAB PO SCH (20:29)
[2020-09-12] MEDS: dilTIAZem 30 MG TAB PO SCH ×4 (01:27→18:30)
[2020-09-12 09:02] LABS: Hemoglobin 18.6 gm/dl (11.8-15.2); Mean Corpuscular HGB Conc 33 % (32-34); Mean Corpuscular Volume 99 fl (84-94); Red Blood Count 5.73 M/mm3 (3.65-5.03); Red Cell Distribution Width 15.3 % (13.2-15.2)
[2020-09-12 09:10] LABS: INR 1.29 (0.87-1.13)
[2020-09-12] MEDS ORDERED: FLU VACC QUAD 2020-2021 (6 months +)/PF 60 0.5 ML SYRINGE IM ONE (10:00)
[2020-09-12 10:23] LABS: Platelet Count 130 K/mm3 (140-440)
[2020-09-12] MEDS: LISINOPRIL 5 MG TAB PO SCH (10:31)
[2020-09-12] MEDS: MAGNESIUM OXIDE 400 MG TAB PO SCH ×2 (10:31→22:34)
[2020-09-12] MEDS: FUROSEMIDE 40 MG TAB PO SCH (10:31)
[2020-09-12] MEDS: SPIRONOLACTONE 25 MG TAB PO SCH (10:31)
[2020-09-12] MEDS: METOPROLOL TARTRATE 50 MG TAB PO SCH ×2 (10:31→22:34)
[2020-09-12] MEDS: NICOTINE 14 MG/24 HR PATCH TD SCH (10:46)
--- NOTE | 2020-09-12 11:33 | Progress Note ---
Assessment and Plan - Patient Problems (1) Chronic atrial fibrillation Current Visit: Yes Status: Acute Plan to address problem: Patient has permanent atrial fibrillation and is recommended for a rate control strategy on chronic oral anticoagulation. On warfarin anticoagulation. (2) Dilated cardiomyopathy Current Visit: Yes Status: Acute Plan to address problem: Patient has a dilated cardiomyopathy with left ventricular ejection fraction 30 to 35%, presumed a nonischemic cardiomyopathy based on the normal perfusion study on his prior admission 3 months ago. We will continue guideline directed medical therapy including afterload agents, spironolactone and beta-blockers. Subjective Date of service: 09/12/20 Principal diagnosis: Atrial fibrillation Interval history: Patient is comfortable, no cardiac complaints, looks and feels well, no acute distress. Objective Vital Signs Temp Pulse Resp BP BP Pulse Ox 09/12/20 04:00 97.9 F 94 H 16 172/105 97 09/12/20 03:01 97.9 F 81 18 181/112 98 09/12/20 02:00 93 H 09/11/20 23:28 97.8 F 80 16 162/96 96 09/11/20 22:00 98 09/11/20 19:21 98.6 F 80 18 120/69 97 09/11/20 18:17 55 L 09/11/20 18:00 55 L 09/11/20 16:21 98.6 F 55 L 18 114/65 97 09/11/20 12:50 84 09/11/20 12:48 84 09/11/20 12:47 84 09/11/20 12:46 84 - Physical Examination General: No Apparent Distress HEENT: Positive: PERRL Neck: Positive: neck supple Cardiac: Positive: irregularly irregular Lungs: Positive: Decreased Breath Sounds Neuro: Positive: Grossly Intact Abdomen: Positive: Soft Skin: Positive: Clear Extremities: Absent: edema - Labs and Meds Coagulation 09/12/20 Range/Units 08:22 PT 16.4 H (12.2-14.9) Sec. INR 1.29 H (0.87-1.13) CBC 09/12/20 Range/Units 08:22 WBC 8.0 (4.5-11.0) K/mm3 RBC 5.73 H (3.65-5.03) M/mm3 Hgb 18.6 H (11.8-15.2) gm/dl Hct 57.0 H (35.5-45.6) % Plt Count 130 L (140-440) K/mm3
--- NOTE | 2020-09-12 15:59 | Progress Note ---
Subjective Date of service: 09/12/20 Principal diagnosis: Atrial fibrillation Objective Vital Signs - 12hr 09/12/20 09/12/20 09/12/20 04:00 07:16 11:27 Temperature 97.9 F 97.4 F L 97.6 F Pulse Rate 94 H 64 55 L Respiratory 16 18 18 Rate Blood Pressure 137/82 123/74 Blood Pressure 172/105 [Left] O2 Sat by Pulse 97 98 99 Oximetry 09/12/20 14:00 Temperature Pulse Rate 55 L Respiratory Rate Blood Pressure Blood Pressure [Left] O2 Sat by Pulse Oximetry Constitutional: no acute distress, other (Patient sitting up in bed, still feeling sleepy.) Eyes: non-icteric ENT: oropharynx moist Neck: supple, no JVD Effort: mildly labored Ascultation: Bilateral: other (Prolonged expiratory phase.) Cardiovascular: irregular rhythm Gastrointestinal: normoactive bowel sounds, soft, non-tender Integumentary: normal Extremities: no cyanosis, no edema Neurologic: normal mental status, non-focal exam, pupils equal and round, CN II- XII normal Psychiatric: depressed CBC and BMP: 09/12/20 08:22 09/11/20 03:54 ABG, PT/INR, D-dimer: ABG ABG pH 7.454 pH Units (7.350-7.450) H 09/07/20 17:20 ABG pCO2 35.2 mm Hg 09/07/20 17:20 ABG pO2 69.9 mm Hg (80.0-90.0) L 09/07/20 17:20 ABG O2 Saturation 94.6 % (95.0-99.0) L 09/07/20 17:20 PT/INR, D-dimer PT 16.4 Sec. (12.2-14.9) H 09/12/20 08:22 INR 1.29 (0.87-1.13) H 09/12/20 08:22 Abnormal lab findings: Abnormal Labs 09/05/20 09/05/20 09/05/20 18:04 18:04 18:04 RBC Hgb 16.1 H Hct 47.6 H MCV 97 H MCH 33 H RDW Plt Count 108 L Mason % (Auto) 13.0 H Lymph # (Auto) 1.0 L Seg Neuts % (Manual) PT INR ABG pH ABG pO2 ABG O2 Saturation Oxyhemoglobin Sodium 136 L Potassium Chloride Carbon Dioxide 20 L BUN Creatinine Glucose POC Glucose Magnesium NT-Pro-B Natriuret Pep Total Protein 9.0 H Albumin 3.2 L Digoxin 0.3 L 09/05/20 09/05/20 09/06/20 18:04 18:04 03:51 RBC Hgb 16.1 H Hct 47.9 H MCV 97 H MCH 33 H RDW Plt Count 100 L Mason % (Auto) Lymph # (Auto) Seg Neuts % (Manual) 74.0 H PT INR ABG pH ABG pO2 ABG O2 Saturation Oxyhemoglobin Sodium Potassium Chloride Carbon Dioxide BUN Creatinine Glucose POC Glucose Magnesium 1.50 L NT-Pro-B Natriuret Pep 2644 H Total Protein Albumin Digoxin 09/06/20 09/06/20 09/06/20 03:51 03:51 04:04 RBC Hgb Hct MCV MCH RDW Plt Count [place] % (Auto) Lymph # (Auto) Seg Neuts % (Manual) PT 15.0 H INR 1.16 H ABG pH ABG pO2 ABG O2 Saturation Oxyhemoglobin Sodium 134 L Potassium Chloride 97.5 L Carbon Dioxide BUN Creatinine Glucose POC Glucose Magnesium 1.50 L NT-Pro-B Natriuret Pep Total Protein Albumin Digoxin 09/07/20 09/07/20 09/08/20 06:11 17:20 04:46 RBC Hgb Hct MCV MCH RDW Plt Count [place] % (Auto) Lymph # (Auto) Seg Neuts % (Manual) PT 15.0 H INR 1.16 H ABG pH 7.454 H ABG pO2 69.9 L ABG O2 Saturation 94.6 L Oxyhemoglobin 92.6 L Sodium Potassium Chloride Carbon Dioxide BUN Creatinine Glucose POC Glucose Magnesium 1.40 L NT-Pro-B Natriuret Pep Total Protein Albumin Digoxin 09/08/20 09/09/20 09/09/20 04:46 05:15 05:15 RBC Hgb Hct MCV MCH RDW Plt Count [place] % (Auto) Lymph # (Auto) Seg Neuts % (Manual) PT 16.5 H INR 1.30 H ABG pH ABG pO2 ABG O2 Saturation Oxyhemoglobin Sodium Potassium 3.5 L 3.5 L Chloride Carbon Dioxide BUN Creatinine 0.7 L Glucose POC Glucose Magnesium 1.50 L NT-Pro-B Natriuret Pep Total Protein Albumin Digoxin 09/09/20 09/10/20 09/10/20 08:16 04:35 04:35 RBC Hgb Hct MCV MCH RDW Plt Count [place] % (Auto) Lymph # (Auto) Seg Neuts % (Manual) PT 17.0 H INR 1.35 H ABG pH ABG pO2 ABG O2 Saturation Oxyhemoglobin Sodium Potassium Chloride Carbon Dioxide BUN 28 H Creatinine Glucose 101 H POC Glucose 64 L Magnesium NT-Pro-B Natriuret Pep Total Protein Albumin Digoxin 09/11/20 09/11/20 09/12/20 03:54 03:54 08:22 RBC Hgb Hct MCV MCH RDW Plt Count [place] % (Auto) Lymph # (Auto) Seg Neuts % (Manual) PT 16.2 H 16.4 H INR 1.27 H 1.29 H ABG pH ABG pO2 ABG O2 Saturation Oxyhemoglobin Sodium 135 L Potassium Chloride Carbon Dioxide BUN 30 H Creatinine Glucose POC Glucose Magnesium NT-Pro-B Natriuret Pep Total Protein Albumin Digoxin 09/12/20 08:22 RBC 5.73 H Hgb 18.6 H Hct 57.0 H MCV 99 H MCH 33 H RDW 15.3 H Plt Count 130 L Mason % (Auto) Lymph # (Auto) Seg Neuts % (Manual) PT INR ABG pH ABG pO2 ABG O2 Saturation Oxyhemoglobin Sodium Potassium Chloride Carbon Dioxide BUN Creatinine Glucose POC Glucose Magnesium NT-Pro-B Natriuret Pep Total Protein Albumin Digoxin
[2020-09-12] MEDS: WARFARIN 2 MG TAB PO SCH (18:25)
[2020-09-12] MEDS: DIGOXIN 0.25 MG TAB PO SCH (18:25)
--- NOTE | 2020-09-12 19:21 | Progress Note ---
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 Cardiology consult, appreciate recommendations Continue metoprolol, diltiazem and digoxin for rate control Continue warfarin with a target INR 2-3 - pharmacy to dose 09/12 dose increased to 8 mg due to continued subtherapeutic INR (2) Systolic CHF Current Visit: Yes Status: Acute Qualifiers: Heart failure chronicity: acute on chronic Qualified Code(s): I50.23 - A cute on chronic systolic (congestive) heart failure Plan to address problem: ASA, diuretic, afterload reduction Anticoagulation with warfarin, PKS consulted Strict intake and output Daily weights 05/2020 Echocardiogram shows EF of 30 to 35% with cardiomyopathy, mild MS and mild dilation of left atrium. 05/2020 Lexiscan stress test was negative for ischemia (3) Noncompliance with medication regimen Current Visit: Yes Status: Chronic Plan to address problem: Compliance with medication is encouraged. Patient verbalized understanding. CM consulted (4) Alcohol abuse Current Visit: Yes Status: Chronic Plan to address problem: Alcohol cessation counseling provided CIWA protocol As needed Ativan and IM Haldol Fall and aspiration precautions (5) DVT prophylaxis Current Visit: Yes Status: Acute Plan to address problem: Systemic anticoagulation with warfarin SCDs bilateral extremities while in bed (6) Discharge planning issues Current Visit: Yes Status: Acute Plan to address problem: 09/11 PT consulted who recommends SNF placement if unable to return to previous living accommodations 09/11 cm consulted 09/12 cm personally contacted for consultation for social issues History Interval history: 60-year-old male with atrial fibrillation, HFrEF (30-35%), hypertension, medical noncompliance, alcohol abuse (~4 beers/day) and tobacco abuse presented to the emergency room on 09/05 with shortness of breath and chest pain which has been ongoing for about 3 days with some nausea but no vomiting and mild swelling in his lower extremities. He was admitted with Lucien cole with RVR and was given Cardizem IV and started on a Cardizem drip in the emergency department and was also noted to have elevated proBNP. Cardiology was consulted. This morning on my examination patient is alert and oriented. His INR remains subtherapeutic, PKS following and warfarin dose was increased. I personally called CM today for consultation. PT consultation was completed. Patient remains in A. fib. 09/06: Patient still in A. fib but RVR has improved. Will start patient on his home medication. Again counseling provided to the patient with importance of better management. Await cardiology input. Anticipate discharge in a.m. 09/07: Diltiazem changed to p.o. 09/08: Haldol as needed 09/09: suptheraputic INR, B wrist restraints in place 09/10: CM consulted 09/11: PT consulted who recommends 3 1 commode, shower chair and SNF placement if unable to return to previous living situation. Hospitalist Physical - Constitutional Vitals: Temp Pulse Resp BP Pulse Ox 97.8 F 60 18 102/59 96 09/12/20 16:38 09/12/20 18:25 09/12/20 16:38 09/12/20 16:38 09/12/20 16:38 General appearance: Present: no acute distress, well-nourished - EENT Eyes: Present: PERRL, EOM intact ENT: hearing decreased, poor dentition - Neck Neck: Present: supple, normal ROM - Respiratory Respiratory effort: normal Respiratory: bilateral: CTA - Cardiovascular Rhythm: irregularly irregular Heart Sounds: Present: S1 & S2, systolic murmur. Absent: diastolic murmur - Extremities Extremities: no ischemia, pulses intact, pulses symmetrical, No edema, normal temperature, normal color, Full ROM Peripheral Pulses: within normal limits - Abdominal General gastrointestinal: soft, non-tender, non-distended, normal bowel sounds - Integumentary Integumentary: Present: clear, warm, dry - Psychiatric Psychiatric: cooperative - Neurologic Neurologic: CNII-XII intact, no focal deficits, moves all extremities HEART Score - HEART Score Troponin: Troponin T < 0.010 ng/mL (0.00-0.029) 09/05/20 23:31 Results - Labs CBC & Chem 7: 09/12/20 08:22 09/11/20 03:54 Labs: Laboratory Last Values WBC 8.0 K/mm3 (4.5-11.0) 09/12/20 08:22 RBC 5.73 M/mm3 (3.65-5.03) H 09/12/20 08:22 Hgb 18.6 gm/dl (11.8-15.2) H 09/12/20 08:22 Hct 57.0 % (35.5-45.6) H 09/12/20 08:22 MCV 99 fl (84-94) H 09/12/20 08:22 MCH 33 pg (28-32) H 09/12/20 08:22 MCHC 33 % (32-34) 09/12/20 08:22 RDW 15.3 % (13.2-15.2) H 09/12/20 08:22 Plt Count 130 K/mm3 (140-440) L 09/12/20 08:22 Lymph % (Auto) 17.3 % (13.4-35.0) 09/05/20 18:04 [place] % (Auto) Criminology Teacher 09/06/20 03:51 Eos % (Auto) 0.8 % (0.0-4.3) 09/05/20 18:04 Baso % (Auto) Criminology Teacher 09/06/20 03:51 Lymph # (Auto) 1.0 K/mm3 (1.2-5.4) L 09/05/20 18:04 [place] # (Auto) 0.7 K/mm3 (0.0-0.8) 09/05/20 18:04 Eos # (Auto) 0.0 K/mm3 (0.0-0.4) 09/05/20 18:04 Baso # (Auto) 0.0 K/mm3 (0.0-0.1) 09/05/20 18:04 Add Manual Diff Complete 09/06/20 03:51 Total Counted 100 09/06/20 03:51 Seg Neutrophils % 68.0 % (40.0-70.0) 09/05/20 18:04 Seg Neuts % (Manual) 74.0 % (40.0-70.0) H 09/06/20 03:51 Band Neutrophils % 0 % 09/06/20 03:51 Lymphocytes % (Manual) 22.0 % (13.4-35.0) 09/06/20 03:51 Reactive Lymphs % (Man) 0 % 09/06/20 03:51 Monocytes % (Manual) 4.0 % (0.0-7.3) 09/06/20 03:51 Eosinophils % (Manual) 0 % (0.0-4.3) 09/06/20 03:51 Basophils % (Manual) 0 % (0.0-1.8) 09/06/20 03:51 Metamyelocytes % 0 % 09/06/20 03:51 Myelocytes % 0 % 09/06/20 03:51 Promyelocytes % 0 % 09/06/20 03:51 Blast Cells % 0 % 09/06/20 03:51 Nucleated RBC % Not Reportable 09/06/20 03:51 Seg Neutrophils # 3.9 K/mm3 (1.8-7.7) 09/05/20 18:04 Seg Neutrophils # Man 4.4 K/mm3 (1.8-7.7) 09/06/20 03:51 Band Neutrophils # 0.0 K/mm3 09/06/20 03:51 Lymphocytes # (Manual) 1.3 K/mm3 (1.2-5.4) 09/06/20 03:51 Abs React Lymphs (Man) 0.0 K/mm3 09/06/20 03:51 Monocytes # (Manual) 0.2 K/mm3 (0.0-0.8) 09/06/20 03:51 Eosinophils # (Manual) 0.0 K/mm3 (0.0-0.4) 09/06/20 03:51 Basophils # (Manual) 0.0 K/mm3 (0.0-0.1) 09/06/20 03:51 Metamyelocytes # 0.0 K/mm3 09/06/20 03:51 Myelocytes # 0.0 K/mm3 09/06/20 03:51 Promyelocytes # 0.0 K/mm3 09/06/20 03:51 Blast Cells # 0.0 K/mm3 09/06/20 03:51 WBC Morphology Not Reportable 09/06/20 03:51 Hypersegmented Neuts Not Reportable 09/06/20 03:51 Hyposegmented Neuts Not Reportable 09/06/20 03:51 Hypogranular Neuts Not Reportable 09/06/20 03:51 Smudge Cells Not Reportable 09/06/20 03:51 Toxic Granulation Not Reportable 09/06/20 03:51 Toxic Vacuolation Not Reportable 09/06/20 03:51 Dohle Bodies Not Reportable 09/06/20 03:51 Pelger-Huet Anomaly Not Reportable 09/06/20 03:51 Yasmin Rods Not Reportable 09/06/20 03:51 Platelet Estimate Consistent w auto 09/06/20 03:51 Clumped Platelets Not Reportable 09/06/20 03:51 Plt Clumps, EDTA Not Reportable 09/06/20 03:51 Large Platelets Not Reportable 09/06/20 03:51 Giant Platelets Not Reportable 09/06/20 03:51 Platelet Satelliting Not Reportable 09/06/20 03:51 Plt Morphology Comment Not Reportable 09/06/20 03:51 RBC Morphology Not Reportable 09/06/20 03:51 Dimorphic RBCs Not Reportable 09/06/20 03:51 Polychromasia Not Reportable 09/06/20 03:51 Hypochromasia Not Reportable 09/06/20 03:51 Poikilocytosis Not Reportable 09/06/20 03:51 Anisocytosis Not Reportable 09/06/20 03:51 Microcytosis Not Reportable 09/06/20 03:51 Macrocytosis Not Reportable 09/06/20 03:51 Spherocytes Not Reportable 09/06/20 03:51 Pappenheimer Bodies Not Reportable 09/06/20 03:51 Sickle Cells Not Reportable 09/06/20 03:51 Target Cells Not Reportable 09/06/20 03:51 Tear Drop Cells Not Reportable 09/06/20 03:51 Ovalocytes Not Reportable 09/06/20 03:51 Helmet Cells Not Reportable 09/06/20 03:51 [place] Bodies Not Reportable 09/06/20 03:51 Elverta Rings Not Reportable 09/06/20 03:51 Stepan Cells Not Reportable 09/06/20 03:51 Bite Cells Not Reportable 09/06/20 03:51 Crenated Cell Not Reportable 09/06/20 03:51 Elliptocytes Not Reportable 09/06/20 03:51 Acanthocytes (Spur) Not Reportable 09/06/20 03:51 Rouleaux Not Reportable 09/06/20 03:51 Hemoglobin C Crystals Not Reportable 09/06/20 03:51 Schistocytes Not Reportable 09/06/20 03:51 Malaria parasites Not Reportable 09/06/20 03:51 Ik Bodies Not Reportable 09/06/20 03:51 Hem Pathologist Commnt No 09/06/20 03:51 PT 16.4 Sec. (12.2-14.9) H 09/12/20 08:22 INR 1.29 (0.87-1.13) H 09/12/20 08:22 APTT 28.2 Sec. (24.2-36.6) 09/05/20 18:04 ABG pH 7.454 pH Units (7.350-7.450) H 09/07/20 17:20 ABG pCO2 35.2 mm Hg 09/07/20 17:20 ABG pO2 69.9 mm Hg (80.0-90.0) L 09/07/20 17:20 ABG HCO3 24.2 mmol/L (20.0-26.0) 09/07/20 17:20 ABG O2 Saturation 94.6 % (95.0-99.0) L 09/07/20 17:20 ABG O2 Content 22.1 (0.0-44) 09/07/20 17:20 ABG Base Excess 0.8 mmol/L (-2.0-3.0) 09/07/20 17:20 ABG Hemoglobin 17.0 gm/dl (14.0-18.0) 09/07/20 17:20 ABG Carboxyhemoglobin 1.6 % (0.0-5.0) 09/07/20 17:20 ABG Methemoglobin 0.5 % (0.0-1.5) 09/07/20 17:20 Oxyhemoglobin 92.6 % (95.0-99.0) L 09/07/20 17:20 FiO2 21 % 09/07/20 17:20 Sodium 135 mmol/L (137-145) L 09/11/20 03:54 Potassium 4.1 mmol/L (3.6-5.0) 09/11/20 03:54 Chloride 99.0 mmol/L (98-107) 09/11/20 03:54 Carbon Dioxide 26 mmol/L (22-30) 09/11/20 03:54 Anion Gap 14 mmol/L 09/11/20 03:54 BUN 30 mg/dL (9-20) H 09/11/20 03:54 Creatinine 1.1 mg/dL (0.8-1.3) 09/11/20 03:54 Estimated GFR > 60 ml/min 09/11/20 03:54 BUN/Creatinine Ratio 27 % 09/11/20 03:54 Glucose 93 mg/dL (75-100) 09/11/20 03:54 POC Glucose 64 (70-105) L 09/09/20 08:16 Calcium 8.8 mg/dL (8.4-10.2) 09/11/20 03:54 Magnesium 1.80 mg/dL (1.7-2.3) 09/09/20 05:15 Total Bilirubin 0.50 mg/dL (0.1-1.2) 09/05/20 18:04 AST 26 units/L (5-40) 09/05/20 18:04 ALT 12 units/L (7-56) 09/05/20 18:04 Alkaline Phosphatase 106 units/L (35-129) 09/05/20 18:04 Troponin T < 0.010 ng/mL (0.00-0.029) 09/05/20 23:31 NT-Pro-B Natriuret Pep 2644 pg/mL (0-900) H 09/05/20 18:04 Total Protein 9.0 g/dL (6.3-8.2) H 09/05/20 18:04 Albumin 3.2 g/dL (3.9-5) L 09/05/20 18:04 Albumin/Globulin Ratio 0.6 % 09/05/20 18:04 TSH 1.650 mlU/mL (0.270-4.200) 09/05/20 18:11 Free T4 1.19 ng/dL (0.76-1.46) 09/05/20 18:11 Digoxin 0.3 ng/mL (0.9-2.0) L 09/05/20 18:04 Plasma/Serum Alcohol 0.07 % (0-0.07) 09/05/20 18:04 Jett/IV: Voiding Method Urinal IV Catheter Type [Right INT / Saline Lock Forearm] IV Catheter Type [Left INT / Saline Lock Antecubital] Active Medications - Current Medications Current Medications: Generic Name Dose Route Start Last Admin Trade Name Freq PRN Reason Stop Dose Admin Acetaminophen 650 mg 09/05/20 22:32 10/17/20 21:35 Tylenol PO 650 mg Q6H PRN Administration Pain MILD(1-3)/Fever >100.5/GILLESPIE Digoxin 0.25 mg 09/06/20 17:00 09/12/20 18:25 Lanoxin PO Not Given DAILY@1700 LUZMARIA Diltiazem HCl 60 mg 09/08/20 10:33 09/12/20 10:54 Cardizem PO 60 mg Q8H LUZMARIA Administration Furosemide 40 mg 09/11/20 10:00 09/12/20 10:31 Lasix PO 40 mg QDAY LUZMARIA Administration Haloperidol Lactate 2 mg 09/08/20 14:03 Haldol IM Q12HR PRN Agitation Lisinopril 10 mg 09/09/20 10:00 09/12/20 10:31 Zestril PO 10 mg QDAY LUZMARIA Administration Lorazepam 2 mg 09/05/20 22:09 09/10/20 21:50 Ativan PO 2 mg Q1HR PRN Administration CIWA-Ar 8-15 Lorazepam 2 mg 09/05/20 22:09 09/08/20 12:15 Ativan IV 2 mg Q1HR PRN Administration CIWA-Ar 8-15 Lorazepam 4 mg 09/05/20 22:09 09/08/20 17:10 Ativan IV 4 mg Q1HR PRN Administration CIWA-Ar 16-25 Magnesium Hydroxide 30 ml 09/05/20 22:32 Milk Of Magnesia PO Q4H PRN Constipation Magnesium Oxide 400 mg 09/06/20 22:00 09/12/20 10:31 Mag-Ox PO 400 mg BID LUZMARIA Administration Metoprolol Tartrate 50 mg 09/06/20 22:00 09/12/20 10:31 Metoprolol PO 50 mg BID LUZMARIA Administration Morphine Sulfate 2 mg 09/05/20 22:32 09/06/20 11:18 Morphine IV 2 mg Q5MIN PRN Administration Chest Pain unrelieved by NTG Nicotine 14 mg 09/12/20 11:00 09/12/20 10:46 Habitrol TD 14 mg QDAY LUZMARIA Administration Ondansetron HCl 4 mg 09/05/20 22:32 09/06/20 11:18 Zofran IV 4 mg Q8H PRN Administration Nausea And Vomiting Sodium Chloride 10 ml 09/06/20 10:00 09/12/20 10:47 Sodium Chloride Flush Syringe 10 Ml IV 10 ml BID LUZMARIA Administration Sodium Chloride 10 ml 09/05/20 22:32 Sodium Chloride Flush Syringe 10 Ml IV PRN PRN LINE FLUSH Spironolactone 50 mg 09/12/20 10:00 09/12/20 10:31 Aldactone PO 50 mg QDAY LUZMARIA Administration Warfarin Sodium 8 mg 09/11/20 17:00 09/12/20 18:25 Coumadin PO 8 mg DAILY@1700 LUZMARIA Administration Protocol Nutrition/Malnutrition Assess - Dietary Evaluation Nutrition/Malnutrition Findings: Nutrition Notes Start: 09/06/20 14:03 Freq: Status: Active Protocol: Document 09/11/20 12:52 ROHINI (Rec: 09/11/20 12:56 ROHINI [id number]) Co-Sign 09/11/20 12:52 LP Nutrition Notes Need for Assessment generated from: Education Initial or Follow up Brief Note Current Diagnosis Hypertension,Heart Failure Other Pertinent Diagnosis Afib, ETOH abuse Current Diet Cardiac Subjective/Other Information F/u diet education needs. Used on line csr phone. Discussed heart healthy diet and Vitamin K intake with Coumadin. Nutrition Intervention Teaching Recipient Patient Learning Readiness Good Teaching Methods Discussion,Handout Response to Teaching Verbalize understanding Education Handouts Provided Low sodium Vitamin K and Coumadin Barriers to Learning Language RD phone number provided Yes Patient aware of follow up options Yes Actions To Overcome Barriers Contact Engine Repairer Revisit per MD consult or patient Sign Off request:
--- NOTE | 2020-09-12 19:54 | Progress Note ---
Assessment and Plan Patient sitting up in chair. Awake. O2 saturation 97% on room air . No acute respiratory distress. Patient afebrile. No leukocytosis. ABG on room air ABG pH 7.454 pH Units (7.350-7.450) H 09/07/20 17:20 ABG pCO2 35.2 mm Hg 09/07/20 17:20 ABG pO2 69.9 mm Hg (80.0-90.0) L 09/07/20 17:20 ABG O2 Saturation 94.6 % (95.0-99.0) L 09/07/20 17:20 - Patient Problems (1) Atrial fibrillation with rapid ventricular response Current Visit: Yes Status: Acute Plan to address problem: Patient is on digoxin and coumsdin. Management as per cardiology. (2) Chest pain Current Visit: Yes Status: Acute Plan to address problem: Management as per cardiology. (3) Shortness of breath Current Visit: Yes Status: Acute Plan to address problem: Could be related to his heart condition. Counselled to stop smoking. PFTs as out patient. (4) Alcohol abuse Current Visit: Yes Status: Chronic Plan to address problem: Management as per primary care. (5) Hypomagnesemia Current Visit: Yes Status: Resolved Plan to address problem: Supplementing Magnesium. Subjective Date of service: 09/12/20 Principal diagnosis: Atrial fibrillation Interval history: Patient sitting up in chair. Awake. O2 saturation 97% on room air . No acute respiratory distress. Patient afebrile. No leukocytosis. ABG on room air ABG pH 7.454 pH Units (7.350-7.450) H 09/07/20 17:20 ABG pCO2 35.2 mm Hg 09/07/20 17:20 ABG pO2 69.9 mm Hg (80.0-90.0) L 09/07/20 17:20 ABG O2 Saturation 94.6 % (95.0-99.0) L 09/07/20 17:20 Objective Vital Signs - 12hr 09/12/20 09/12/20 09/12/20 11:27 14:00 16:38 Temperature 97.6 F 97.8 F Pulse Rate 55 L 55 L 50 L Respiratory 18 18 Rate Blood Pressure 123/74 102/59 O2 Sat by Pulse 99 96 Oximetry 09/12/20 18:25 Temperature Pulse Rate 60 Respiratory Rate Blood Pressure O2 Sat by Pulse Oximetry Constitutional: no acute distress, other (Patient sitting up in bed, still feeling sleepy.) Eyes: non-icteric ENT: oropharynx moist Neck: supple, no JVD Effort: mildly labored Ascultation: Bilateral: other (Prolonged expiratory phase.) Cardiovascular: irregular rhythm Gastrointestinal: normoactive bowel sounds, soft, non-tender Integumentary: normal Extremities: no cyanosis, no edema Neurologic: normal mental status, non-focal exam, pupils equal and round, CN II- XII normal Psychiatric: depressed CBC and BMP: 09/12/20 08:22 09/13/20 05:07 ABG, PT/INR, D-dimer: ABG ABG pH 7.454 pH Units (7.350-7.450) H 09/07/20 17:20 ABG pCO2 35.2 mm Hg 09/07/20 17:20 ABG pO2 69.9 mm Hg (80.0-90.0) L 09/07/20 17:20 ABG O2 Saturation 94.6 % (95.0-99.0) L 09/07/20 17:20 PT/INR, D-dimer PT 16.4 Sec. (12.2-14.9) H 09/12/20 08:22 INR 1.29 (0.87-1.13) H 09/12/20 08:22 Abnormal lab findings: Abnormal Labs 09/05/20 09/05/20 09/05/20 18:04 18:04 18:04 RBC Hgb 16.1 H Hct 47.6 H MCV 97 H MCH 33 H RDW Plt Count 108 L [place] % (Auto) 13.0 H Lymph # (Auto) 1.0 L Seg Neuts % (Manual) PT INR ABG pH ABG pO2 ABG O2 Saturation Oxyhemoglobin Sodium 136 L Potassium Chloride Carbon Dioxide 20 L BUN Creatinine Glucose POC Glucose Magnesium NT-Pro-B Natriuret Pep Total Protein 9.0 H Albumin 3.2 L Digoxin 0.3 L 09/05/20 09/05/20 09/06/20 18:04 18:04 03:51 RBC Hgb 16.1 H Hct 47.9 H MCV 97 H MCH 33 H RDW Plt Count 100 L [place] % (Auto) Lymph # (Auto) Seg Neuts % (Manual) 74.0 H PT INR ABG pH ABG pO2 ABG O2 Saturation Oxyhemoglobin Sodium Potassium Chloride Carbon Dioxide BUN Creatinine Glucose POC Glucose Magnesium 1.50 L NT-Pro-B Natriuret Pep 2644 H Total Protein Albumin Digoxin 09/06/20 09/06/20 09/06/20 03:51 03:51 04:04 RBC Hgb Hct MCV MCH RDW Plt Count [place] % (Auto) Lymph # (Auto) Seg Neuts % (Manual) PT 15.0 H INR 1.16 H ABG pH ABG pO2 ABG O2 Saturation Oxyhemoglobin Sodium 134 L Potassium Chloride 97.5 L Carbon Dioxide BUN Creatinine Glucose POC Glucose Magnesium 1.50 L NT-Pro-B Natriuret Pep Total Protein Albumin Digoxin 09/07/20 09/07/20 09/08/20 06:11 17:20 04:46 RBC Hgb Hct MCV MCH RDW Plt Count [place] % (Auto) Lymph # (Auto) Seg Neuts % (Manual) PT 15.0 H INR 1.16 H ABG pH 7.454 H ABG pO2 69.9 L ABG O2 Saturation 94.6 L Oxyhemoglobin 92.6 L Sodium Potassium Chloride Carbon Dioxide BUN Creatinine Glucose POC Glucose Magnesium 1.40 L NT-Pro-B Natriuret Pep Total Protein Albumin Digoxin 09/08/20 09/09/20 09/09/20 04:46 05:15 05:15 RBC Hgb Hct MCV MCH RDW Plt Count [place] % (Auto) Lymph # (Auto) Seg Neuts % (Manual) PT 16.5 H INR 1.30 H ABG pH ABG pO2 ABG O2 Saturation Oxyhemoglobin Sodium Potassium 3.5 L 3.5 L Chloride Carbon Dioxide BUN Creatinine 0.7 L Glucose POC Glucose Magnesium 1.50 L NT-Pro-B Natriuret Pep Total Protein Albumin Digoxin 09/09/20 09/10/20 09/10/20 08:16 04:35 04:35 RBC Hgb Hct MCV MCH RDW Plt Count [place] % (Auto) Lymph # (Auto) Seg Neuts % (Manual) PT 17.0 H INR 1.35 H ABG pH ABG pO2 ABG O2 Saturation Oxyhemoglobin Sodium Potassium Chloride Carbon Dioxide BUN 28 H Creatinine Glucose 101 H POC Glucose 64 L Magnesium NT-Pro-B Natriuret Pep Total Protein Albumin Digoxin 09/11/20 09/11/20 09/12/20 03:54 03:54 08:22 RBC Hgb Hct MCV MCH RDW Plt Count [place] % (Auto) Lymph # (Auto) Seg Neuts % (Manual) PT 16.2 H 16.4 H INR 1.27 H 1.29 H ABG pH ABG pO2 ABG O2 Saturation Oxyhemoglobin Sodium 135 L Potassium Chloride Carbon Dioxide BUN 30 H Creatinine Glucose POC Glucose Magnesium NT-Pro-B Natriuret Pep Total Protein Albumin Digoxin 09/12/20 08:22 RBC 5.73 H Hgb 18.6 H Hct 57.0 H MCV 99 H MCH 33 H RDW 15.3 H Plt Count 130 L [place] % (Auto) Lymph # (Auto) Seg Neuts % (Manual) PT INR ABG pH ABG pO2 ABG O2 Saturation Oxyhemoglobin Sodium Potassium Chloride Carbon Dioxide BUN Creatinine Glucose POC Glucose Magnesium NT-Pro-B Natriuret Pep Total Protein Albumin Digoxin
[2020-09-13] MEDS: dilTIAZem 30 MG TAB PO SCH ×3 (03:02→17:52)
[2020-09-13 05:36] LABS: INR 1.45 (0.87-1.13)
[2020-09-13 05:46] LABS: BUN/Creatinine Ratio 25; Blood Urea Nitrogen 28 mg/dL (9-20); Calcium 9.3 mg/dL (8.4-10.2); Hemolysis Index 16
[2020-09-13] MEDS: FUROSEMIDE 40 MG TAB PO SCH (10:04)
[2020-09-13] MEDS: MAGNESIUM OXIDE 400 MG TAB PO SCH ×2 (10:05→21:48)
[2020-09-13] MEDS: METOPROLOL TARTRATE 50 MG TAB PO SCH ×2 (10:05→21:48)
[2020-09-13] MEDS: LISINOPRIL 5 MG TAB PO SCH (10:05)
[2020-09-13] MEDS: NICOTINE 14 MG/24 HR PATCH TD SCH (10:06)
[2020-09-13] MEDS: SPIRONOLACTONE 25 MG TAB PO SCH (10:06)
--- NOTE | 2020-09-13 10:25 | Progress Note ---
Assessment and Plan Persistent atrial fibrillation - rate controlled Cardiomyopathy, non-ischemia MPI 05/2020 - No ischemia Echo 05/2020 - LVEF 35%, mild MS and left atrial dilatation. Hx of Alcohol abuse Non-compliance Recommendations: Continue metoprolol, diltiazem and digoxin for rate control of persistent atrial fibrillation. Continue warfarin for oral anticoagulation. Otherwise, conservative cardiac management. Subjective Date of service: 09/13/20 Principal diagnosis: Atrial fibrillation Interval history: Appears comfortable. Afib with a well controlled ventricular rate on telemetry. Objective Vital Signs Temp Pulse Pulse Resp Resp BP BP 09/13/20 10:20 18 09/13/20 10:05 79 104/61 09/13/20 09:46 79 104/61 09/13/20 07:33 98.0 F 62 18 118/72 09/13/20 03:58 98.0 F 90 18 123/65 09/13/20 03:03 122/73 09/13/20 03:02 77 122/73 09/12/20 23:44 98.0 F 49 L 18 118/59 09/12/20 22:35 60 16 09/12/20 22:34 65 119/62 09/12/20 19:42 80 09/12/20 18:25 60 09/12/20 16:38 97.8 F 50 L 18 102/59 09/12/20 14:00 55 L 09/12/20 11:27 97.6 F 55 L 18 123/74 Pulse Ox 09/13/20 10:20 09/13/20 10:05 09/13/20 09:46 09/13/20 07:33 95 09/13/20 03:58 97 09/13/20 03:03 09/13/20 03:02 09/12/20 23:44 97 09/12/20 22:35 100 09/12/20 22:34 09/12/20 19:42 09/12/20 18:25 09/12/20 16:38 96 09/12/20 14:00 09/12/20 11:27 99 - Physical Examination General: No Apparent Distress HEENT: Positive: PERRL Neck: Positive: neck supple Cardiac: Positive: irregularly irregular Lungs: Positive: Decreased Breath Sounds Neuro: Positive: Grossly Intact Extremities: Absent: edema - Labs and Meds Coagulation 09/13/20 Range/Units 05:07 PT 17.8 H (12.2-14.9) Sec. INR 1.45 H (0.87-1.13) Comprehensive Metabolic Panel 09/13/20 Range/Units 05:07 Sodium 135 L (137-145) mmol/L Potassium 4.4 (3.6-5.0) mmol/L Chloride 99.0 (98-107) mmol/L Carbon Dioxide 26 (22-30) mmol/L BUN 28 H (9-20) mg/dL Creatinine 1.1 (0.8-1.3) mg/dL Glucose 99 (75-100) mg/dL Calcium 9.3 (8.4-10.2) mg/dL
--- NOTE | 2020-09-13 10:25 | Progress Note ---
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 enterer Cardiology consult, appreciate recommendations Continue metoprolol, diltiazem and digoxin for rate control Continue warfarin with a target INR 2-3 - pharmacy to dose 09/12 dose increased to 8 mg due to continued subtherapeutic INR 09/13: INR increased however still subtherapeutic, pharmacy to continue a 8 mg dose for now (2) Systolic CHF Current Visit: Yes Status: Acute Qualifiers: Heart failure chronicity: acute on chronic Qualified Code(s): I50.23 - Acute on chronic systolic (congestive) heart failure Plan to address problem: ASA, diuretic, afterload reduction Anticoagulation with warfarin, PKS consulted Strict intake and output Daily weights 05/2020 Echocardiogram shows EF of 30 to 35% with cardiomyopathy, mild MS and mild dilation of left atrium. 05/2020 Lexiscan stress test was negative for ischemia (3) Noncompliance with medication regimen Current Visit: Yes Status: Chronic Plan to address problem: Compliance with medication is encouraged. Patient verbalized understanding. CM consulted (4) Alcohol abuse Current Visit: Yes Status: Chronic Plan to address problem: Alcohol cessation counseling provided CIWA protocol As needed Ativan and IM Haldol Fall and aspiration precautions (5) DVT prophylaxis Current Visit: Yes Status: Acute Plan to address problem: Systemic anticoagulation with warfarin SCDs bilateral extremities while in bed (6) Discharge planning issues Current Visit: Yes Status: Acute Plan to address problem: 09/11 PT consulted who recommends SNF placement if unable to return to previous living accommodations 09/11 cm consulted 09/12 cm personally contacted for consultation for social issues History Interval history: 60-year-old male with atrial fibrillation, HFrEF (30-35%), hypertension, medical noncompliance, alcohol abuse (~4 beers/day) and tobacco abuse presented to the emergency room on 09/05 with shortness of breath and chest pain which has been ongoing for about 3 days with some nausea but no vomiting and mild swelling in his lower extremities. He was admitted with A. fib with RVR and was given Cardizem IV and started on a Cardizem drip in the emergency department and was also noted to have elevated proBNP. Cardiology was consulted. This morning on my examination patient is alert and oriented. Patient is very agreeable to compliance with medications to avoid recurrent hospitalizations. Patient states CM can speak to his friend Soniya on the phone. His INR remains subtherapeutic however has increased. 09/06: Patient still in A. fib but RVR has improved. Will start patient on his home medication. Again counseling provided to the patient with importance of better management. Await cardiology input. Anticipate discharge in a.m. 09/07: Diltiazem changed to p.o. 09/08: Haldol as needed 09/09: suptheraputic INR, B wrist restraints in place 09/10: CM consulted 09/11: PT consulted who recommends 3 1 commode, shower chair and SNF placement if unable to return to previous living situation.09/12: His INR remains subther apeutic, PKS following and warfarin dose was increased. I personally called CM today for consultation. PT consultation recommends subacute rehab if patient cannot return to her previous living situation. Hospitalist Physical - Constitutional Vitals: Temp Pulse Resp BP Pulse Ox 98.0 F 79 18 104/61 95 09/13/20 07:33 09/13/20 10:05 09/13/20 07:33 09/13/20 10:05 09/13/20 07:33 General appearance: Present: no acute distress, well-nourished - EENT Eyes: Present: PERRL, EOM intact ENT: hearing decreased, poor dentition - Neck Neck: Present: supple, normal ROM - Respiratory Respiratory effort: normal Respiratory: bilateral: CTA - Cardiovascular Rhythm: irregularly irregular Heart Sounds: Present: S1 & S2. Absent: systolic murmur, diastolic murmur - Extremities Extremities: no ischemia, pulses intact, pulses symmetrical, No edema, normal temperature, normal color, Full ROM Peripheral Pulses: within normal limits - Abdominal General gastrointestinal: soft, non-tender, non-distended, normal bowel sounds - Integumentary Integumentary: Present: clear, warm, dry - Psychiatric Psychiatric: appropriate mood/affect, cooperative - Neurologic Neurologic: CNII-XII intact, no focal deficits, moves all extremities - Allied Health Allied health notes reviewed: nursing HEART Score - HEART Score Troponin: Troponin T < 0.010 ng/mL (0.00-0.029) 09/05/20 23:31 Results - Labs CBC & Chem 7: 09/12/20 08:22 09/13/20 05:07 Labs: Laboratory Last Values WBC 8.0 K/mm3 (4.5-11.0) 09/12/20 08:22 RBC 5.73 M/mm3 (3.65-5.03) H 09/12/20 08:22 Hgb 18.6 gm/dl (11.8-15.2) H 09/12/20 08:22 Hct 57.0 % (35.5-45.6) H 09/12/20 08:22 MCV 99 fl (84-94) H 09/12/20 08:22 MCH 33 pg (28-32) H 09/12/20 08:22 MCHC 33 % (32-34) 09/12/20 08:22 RDW 15.3 % (13.2-15.2) H 09/12/20 08:22 Plt Count 130 K/mm3 (140-440) L 09/12/20 08:22 Lymph % (Auto) 17.3 % (13.4-35.0) 09/05/20 18:04 Lane % (Auto) Health Care / Medical Job Titles 09/06/20 03:51 Eos % (Auto) 0.8 % (0.0-4.3) 09/05/20 18:04 Baso % (Auto) Health Care / Medical Job Titles 09/06/20 03:51 Lymph # (Auto) 1.0 K/mm3 (1.2-5.4) L 09/05/20 18:04 Lane # (Auto) 0.7 K/mm3 (0.0-0.8) 09/05/20 18:04 Eos # (Auto) 0.0 K/mm3 (0.0-0.4) 09/05/20 18:04 Baso # (Auto) 0.0 K/mm3 (0.0-0.1) 09/05/20 18:04 Add Manual Diff Complete 09/06/20 03:51 Total Counted 100 09/06/20 03:51 Seg Neutrophils % 68.0 % (40.0-70.0) 09/05/20 18:04 Seg Neuts % (Manual) 74.0 % (40.0-70.0) H 09/06/20 03:51 Band Neutrophils % 0 % 09/06/20 03:51 Lymphocytes % (Manual) 22.0 % (13.4-35.0) 09/06/20 03:51 Reactive Lymphs % (Man) 0 % 09/06/20 03:51 Monocytes % (Manual) 4.0 % (0.0-7.3) 09/06/20 03:51 Eosinophils % (Manual) 0 % (0.0-4.3) 09/06/20 03:51 Basophils % (Manual) 0 % (0.0-1.8) 09/06/20 03:51 Metamyelocytes % 0 % 09/06/20 03:51 Myelocytes % 0 % 09/06/20 03:51 Promyelocytes % 0 % 09/06/20 03:51 Blast Cells % 0 % 09/06/20 03:51 Nucleated RBC % Not Reportable 09/06/20 03:51 Seg Neutrophils # 3.9 K/mm3 (1.8-7.7) 09/05/20 18:04 Seg Neutrophils # Man 4.4 K/mm3 (1.8-7.7) 09/06/20 03:51 Band Neutrophils # 0.0 K/mm3 09/06/20 03:51 Lymphocytes # (Manual) 1.3 K/mm3 (1.2-5.4) 09/06/20 03:51 Abs React Lymphs (Man) 0.0 K/mm3 09/06/20 03:51 Monocytes # (Manual) 0.2 K/mm3 (0.0-0.8) 09/06/20 03:51 Eosinophils # (Manual) 0.0 K/mm3 (0.0-0.4) 09/06/20 03:51 Basophils # (Manual) 0.0 K/mm3 (0.0-0.1) 09/06/20 03:51 Metamyelocytes # 0.0 K/mm3 09/06/20 03:51 Myelocytes # 0.0 K/mm3 09/06/20 03:51 Promyelocytes # 0.0 K/mm3 09/06/20 03:51 Blast Cells # 0.0 K/mm3 09/06/20 03:51 WBC Morphology Not Reportable 09/06/20 03:51 Hypersegmented Neuts Not Reportable 09/06/20 03:51 Hyposegmented Neuts Not Reportable 09/06/20 03:51 Hypogranular Neuts Not Reportable 09/06/20 03:51 Smudge Cells Not Reportable 09/06/20 03:51 Toxic Granulation Not Reportable 09/06/20 03:51 Toxic Vacuolation Not Reportable 09/06/20 03:51 Dohle Bodies Not Reportable 09/06/20 03:51 Pelger-Huet Anomaly Not Reportable 09/06/20 03:51 Yasmin Rods Not Reportable 09/06/20 03:51 Platelet Estimate Consistent w auto 09/06/20 03:51 Clumped Platelets Not Reportable 09/06/20 03:51 Plt Clumps, EDTA Not Reportable 09/06/20 03:51 Large Platelets Not Reportable 09/06/20 03:51 Giant Platelets Not Reportable 09/06/20 03:51 Platelet Satelliting Not Reportable 09/06/20 03:51 Plt Morphology Comment Not Reportable 09/06/20 03:51 RBC Morphology Not Reportable 09/06/20 03:51 Dimorphic RBCs Not Reportable 09/06/20 03:51 Polychromasia Not Reportable 09/06/20 03:51 Hypochromasia Not Reportable 09/06/20 03:51 Poikilocytosis Not Reportable 09/06/20 03:51 Anisocytosis Not Reportable 09/06/20 03:51 Microcytosis Not Reportable 09/06/20 03:51 Macrocytosis Not Reportable 09/06/20 03:51 Spherocytes Not Reportable 09/06/20 03:51 Pappenheimer Bodies Not Reportable 09/06/20 03:51 Sickle Cells Not Reportable 09/06/20 03:51 Target Cells Not Reportable 09/06/20 03:51 Tear Drop Cells Not Reportable 09/06/20 03:51 Ovalocytes Not Reportable 09/06/20 03:51 Helmet Cells Not Reportable 09/06/20 03:51 Lewis-Ten Sleep Bodies Not Reportable 09/06/20 03:51 [place] Rings Not Reportable 09/06/20 03:51 Stepan Cells Not Reportable 09/06/20 03:51 Bite Cells Not Reportable 09/06/20 03:51 Crenated Cell Not Reportable 09/06/20 03:51 Elliptocytes Not Reportable 09/06/20 03:51 Acanthocytes (Spur) Not Reportable 09/06/20 03:51 Rouleaux Not Reportable 09/06/20 03:51 Hemoglobin C Crystals Not Reportable 09/06/20 03:51 Schistocytes Not Reportable 09/06/20 03:51 Malaria parasites Not Reportable 09/06/20 03:51 Ki Bodies Not Reportable 09/06/20 03:51 Hem Pathologist Commnt No 09/06/20 03:51 PT 17.8 Sec. (12.2-14.9) H 09/13/20 05:07 INR 1.45 (0.87-1.13) H 09/13/20 05:07 APTT 28.2 Sec. (24.2-36.6) 09/05/20 18:04 ABG pH 7.454 pH Units (7.350-7.450) H 09/07/20 17:20 ABG pCO2 35.2 mm Hg 09/07/20 17:20 ABG pO2 69.9 mm Hg (80.0-90.0) L 09/07/20 17:20 ABG HCO3 24.2 mmol/L (20.0-26.0) 09/07/20 17:20 ABG O2 Saturation 94.6 % (95.0-99.0) L 09/07/20 17:20 ABG O2 Content 22.1 (0.0-44) 09/07/20 17:20 ABG Base Excess 0.8 mmol/L (-2.0-3.0) 09/07/20 17:20 ABG Hemoglobin 17.0 gm/dl (14.0-18.0) 09/07/20 17:20 ABG Carboxyhemoglobin 1.6 % (0.0-5.0) 09/07/20 17:20 ABG Methemoglobin 0.5 % (0.0-1.5) 09/07/20 17:20 Oxyhemoglobin 92.6 % (95.0-99.0) L 09/07/20 17:20 FiO2 21 % 09/07/20 17:20 Sodium 135 mmol/L (137-145) L 09/13/20 05:07 Potassium 4.4 mmol/L (3.6-5.0) 09/13/20 05:07 Chloride 99.0 mmol/L (98-107) 09/13/20 05:07 Carbon Dioxide 26 mmol/L (22-30) 09/13/20 05:07 Anion Gap 14 mmol/L 09/13/20 05:07 BUN 28 mg/dL (9-20) H 09/13/20 05:07 Creatinine 1.1 mg/dL (0.8-1.3) 09/13/20 05:07 Estimated GFR > 60 ml/min 09/13/20 05:07 BUN/Creatinine Ratio 25 % 09/13/20 05:07 Glucose 99 mg/dL (75-100) 09/13/20 05:07 POC Glucose 64 (70-105) L 09/09/20 08:16 Calcium 9.3 mg/dL (8.4-10.2) 09/13/20 05:07 Magnesium 1.80 mg/dL (1.7-2.3) 09/09/20 05:15 Total Bilirubin 0.50 mg/dL (0.1-1.2) 09/05/20 18:04 AST 26 units/L (5-40) 09/05/20 18:04 ALT 12 units/L (7-56) 09/05/20 18:04 Alkaline Phosphatase 106 units/L (35-129) 09/05/20 18:04 Troponin T < 0.010 ng/mL (0.00-0.029) 09/05/20 23:31 NT-Pro-B Natriuret Pep 2644 pg/mL (0-900) H 09/05/20 18:04 Total Protein 9.0 g/dL (6.3-8.2) H 09/05/20 18:04 Albumin 3.2 g/dL (3.9-5) L 09/05/20 18:04 Albumin/Globulin Ratio 0.6 % 09/05/20 18:04 TSH 1.650 mlU/mL (0.270-4.200) 09/05/20 18:11 Free T4 1.19 ng/dL (0.76-1.46) 09/05/20 18:11 Digoxin 0.3 ng/mL (0.9-2.0) L 09/05/20 18:04 Plasma/Serum Alcohol 0.07 % (0-0.07) 09/05/20 18:04 Jett/IV: Voiding Method Toilet IV Catheter Type [Right INT / Saline Lock Forearm] IV Catheter Type [Left INT / Saline Lock Antecubital] Active Medications - Current Medications Current Medications: Generic Name Dose Route Start Last Admin Trade Name Freq PRN Reason Stop Dose Admin Acetaminophen 650 mg 09/05/20 22:32 09/07/20 21:35 Tylenol PO 650 mg Q6H PRN Administration Pain MILD(1-3)/Fever >100.5/GILLESPIE Digoxin 0.25 mg 09/06/20 17:00 09/12/20 18:25 Lanoxin PO Not Given DAILY@1700 [facility] Diltiazem HCl 60 mg 09/08/20 10:33 09/13/20 03:02 Cardizem PO 60 mg Q8H LUZMARIA Administration Furosemide 40 mg 09/11/20 10:00 09/13/20 10:04 Lasix PO 40 mg QDAY LUZMARIA Administration Haloperidol Lactate 2 mg 09/08/20 14:03 Haldol IM Q12HR PRN Agitation Lisinopril 10 mg 09/09/20 10:00 09/13/20 10:05 Zestril PO 10 mg QDAY [facility] Administration Lorazepam 2 mg 09/05/20 22:09 09/10/20 21:50 Ativan PO 2 mg Q1HR PRN Administration CIWA-Ar 8-15 Lorazepam 2 mg 09/05/20 22:09 09/08/20 12:15 Ativan IV 2 mg Q1HR PRN Administration CIWA-Ar 8-15 Lorazepam 4 mg 09/05/20 22:09 09/08/20 17:10 Ativan IV 4 mg Q1HR PRN Administration CIWA-Ar 16-25 Magnesium Hydroxide 30 ml 09/05/20 22:32 Milk Of Magnesia PO Q4H PRN Constipation Magnesium Oxide 400 mg 09/06/20 22:00 09/13/20 10:05 Mag-Ox PO 400 mg BID LUZMARIA Administration Metoprolol Tartrate 50 mg 09/06/20 22:00 09/13/20 10:05 Metoprolol PO 50 mg BID LUZMARIA Administration Morphine Sulfate 2 mg 09/05/20 22:32 09/06/20 11:18 Morphine IV 2 mg Q5MIN PRN Administration Chest Pain unrelieved by NTG Nicotine 14 mg 10/22/20 11:00 09/13/20 10:06 Habitrol TD 14 mg QDAY LUZMARIA Administration Ondansetron HCl 4 mg 09/05/20 22:32 09/06/20 11:18 Zofran IV 4 mg Q8H PRN Administration Nausea And Vomiting Sodium Chloride 10 ml 09/06/20 10:00 09/13/20 10:08 Sodium Chloride Flush Syringe 10 Ml IV 10 ml BID LUZMARIA Administration Sodium Chloride 10 ml 09/05/20 22:32 Sodium Chloride Flush Syringe 10 Ml IV PRN PRN LINE FLUSH Spironolactone 50 mg 09/12/20 10:00 09/13/20 10:06 Aldactone PO 50 mg QDAY LUZMARIA Administration Warfarin Sodium 8 mg 09/11/20 17:00 09/12/20 18:25 Coumadin PO 8 mg DAILY@1700 LUZMARIA Administration Protocol Nutrition/Malnutrition Assess - Dietary Evaluation Nutrition/Malnutrition Findings: Nutrition Notes Start: 09/06/20 14:03 Freq: Status: Active Protocol: Document 09/11/20 12:52 ROHINI (Rec: 09/11/20 12:56 ROHINI [id number]) Co-Sign 09/11/20 12:52 LP Nutrition Notes Need for Assessment generated from: Education Initial or Follow up Brief Note Current Diagnosis Hypertension,Heart Failure Other Pertinent Diagnosis Afib, ETOH abuse Current Diet Cardiac Subjective/Other Information F/u diet education needs. Used signals analyst phone. Discussed heart healthy diet and Vitamin K intake with Coumadin. Nutrition Intervention Teaching Recipient Patient Learning Readiness Good Teaching Methods Discussion,Handout Response to Teaching Verbalize understanding Education Handouts Provided Low sodium Vitamin K and Coumadin Barriers to Learning Language RD phone number provided Yes Patient aware of follow up options Yes Actions To Overcome Barriers Contact Food Counter Attendant Revisit per MD consult or patient Sign Off request:
--- NOTE | 2020-09-13 12:39 | Progress Note ---
Assessment and Plan Atrial fibrillation with rapid ventricular response Shortness of Breath Systolic CHF Noncompliance with medication regimen Alcohol abuse NIKKI - prn supplemental oxygen to keep O2 sats > 90% - prn bronchodilators with pulm hygiene per RT - EtOH withdrawal / CIWA protocol - full anticoagulation re: A-fib - rate control / ACS management per cardiology otherwise - avoid nephrotoxins, renally dose all medications - mobility protocols to prevent pressure ulcers - PT/OT as tolerated - Wound care per RN/WCT - continue accuchecks with glycemic control per SSI for target blood glucose < 180 mg/dL - Smoking cessation strongly counseled at the bedside - home oxygen evaluation at discharge - prn analgesia per pain score - GI & VTE prophylaxis - Flu & pneumovax per protocol - Pulmonary out patient follow up for PFTs and optimization of respiratory status - continue other care per attending / other consultants ... re-evaluate in am & prn Subjective Date of service: 09/13/20 Principal diagnosis: A-Fib with RVR; SOB; HFrEF; Alcohol abuse; NIKKI Interval history: Patient is seen today for: A-Fib with RVR; SOB; HFrEF; Noncompliance with medication regimen; Alcohol abuse; NIKKI Seen and examined at bedside; 24hour events reviewed; nursing and respiratory care staff consulted; no adverse overnight events reported to me; resting peacefully in bed; feels better; denies acute chest pains or palpitations; No N/V/F/C Objective Vital Signs - 12hr 09/13/20 09/13/20 09/13/20 03:02 03:03 03:58 Temperature 98.0 F Pulse Rate 77 90 Respiratory 18 Rate Respiratory Rate [Left Upper Lateral Flank] Blood Pressure 122/73 122/73 123/65 Blood Pressure [Left] O2 Sat by Pulse 97 Oximetry 09/13/20 09/13/20 09/13/20 07:33 09:46 10:05 Temperature 98.0 F Pulse Rate 62 79 79 Respiratory 18 Rate Respiratory Rate [Left Upper Lateral Flank] Blood Pressure 118/72 104/61 Blood Pressure 104/61 [Left] O2 Sat by Pulse 95 Oximetry 09/13/20 09/13/20 10:20 11:21 Temperature Pulse Rate 79 Respiratory Rate Respiratory 18 Rate [Left Upper Lateral Flank] Blood Pressure 104/61 Blood Pressure [Left] O2 Sat by Pulse Oximetry Constitutional: no acute distress, other (elderly male with normal respiratory effort at rest) Eyes: non-icteric ENT: oropharynx moist Neck: supple, no JVD Effort: normal Ascultation: Bilateral: clear, diminished breath sounds, other (Prolonged expiratory phase.) Percussion: Bilateral: not dull Cardiovascular: irregular rhythm Gastrointestinal: normoactive bowel sounds, soft, non-tender, non-distended Integumentary: normal Extremities: no cyanosis, no edema, pulses normal, no ischemia or petechiae Neurologic: normal mental status, non-focal exam, pupils equal and round, CN II- XII normal, motor strength normal and Psychiatric: mood appropriate, affect normal CBC and BMP: 09/12/20 08:22 09/13/20 05:07 ABG, PT/INR, D-dimer: ABG ABG pH 7.454 pH Units (7.350-7.450) H 09/07/20 17:20 ABG pCO2 35.2 mm Hg 09/07/20 17:20 ABG pO2 69.9 mm Hg (80.0-90.0) L 09/07/20 17:20 ABG O2 Saturation 94.6 % (95.0-99.0) L 09/07/20 17:20 PT/INR, D-dimer PT 17.8 Sec. (12.2-14.9) H 09/13/20 05:07 INR 1.45 (0.87-1.13) H 09/13/20 05:07 Abnormal lab findings: Abnormal Labs 09/05/20 09/05/20 09/05/20 18:04 18:04 18:04 RBC Hgb 16.1 H Hct 47.6 H MCV 97 H MCH 33 H RDW Plt Count 108 L [place] % (Auto) 13.0 H Lymph # (Auto) 1.0 L Seg Neuts % (Manual) PT INR ABG pH ABG pO2 ABG O2 Saturation Oxyhemoglobin Sodium 136 L Potassium Chloride Carbon Dioxide 20 L BUN Creatinine Glucose POC Glucose Magnesium NT-Pro-B Natriuret Pep Total Protein 9.0 H Albumin 3.2 L Digoxin 0.3 L 09/05/20 09/05/20 09/06/20 18:04 18:04 03:51 RBC Hgb 16.1 H Hct 47.9 H MCV 97 H MCH 33 H RDW Plt Count 100 L [place] % (Auto) Lymph # (Auto) Seg Neuts % (Manual) 74.0 H PT INR ABG pH ABG pO2 ABG O2 Saturation Oxyhemoglobin Sodium Potassium Chloride Carbon Dioxide BUN Creatinine Glucose POC Glucose Magnesium 1.50 L NT-Pro-B Natriuret Pep 2644 H Total Protein Albumin Digoxin 09/06/20 09/06/20 09/06/20 03:51 03:51 04:04 RBC Hgb Hct MCV MCH RDW Plt Count [place] % (Auto) Lymph # (Auto) Seg Neuts % (Manual) PT 15.0 H INR 1.16 H ABG pH ABG pO2 ABG O2 Saturation Oxyhemoglobin Sodium 134 L Potassium Chloride 97.5 L Carbon Dioxide BUN Creatinine Glucose POC Glucose Magnesium 1.50 L NT-Pro-B Natriuret Pep Total Protein Albumin Digoxin 09/07/20 09/07/20 09/08/20 06:11 17:20 04:46 RBC Hgb Hct MCV MCH RDW Plt Count [place] % (Auto) Lymph # (Auto) Seg Neuts % (Manual) PT 15.0 H INR 1.16 H ABG pH 7.454 H ABG pO2 69.9 L ABG O2 Saturation 94.6 L Oxyhemoglobin 92.6 L Sodium Potassium Chloride Carbon Dioxide BUN Creatinine Glucose POC Glucose Magnesium 1.40 L NT-Pro-B Natriuret Pep Total Protein Albumin Digoxin 09/08/20 09/09/20 09/09/20 04:46 05:15 05:15 RBC Hgb Hct MCV MCH RDW Plt Count [place] % (Auto) Lymph # (Auto) Seg Neuts % (Manual) PT 16.5 H INR 1.30 H ABG pH ABG pO2 ABG O2 Saturation Oxyhemoglobin Sodium Potassium 3.5 L 3.5 L Chloride Carbon Dioxide BUN Creatinine 0.7 L Glucose POC Glucose Magnesium 1.50 L NT-Pro-B Natriuret Pep Total Protein Albumin Digoxin 09/09/20 09/10/20 09/10/20 08:16 04:35 04:35 RBC Hgb Hct MCV MCH RDW Plt Count [place] % (Auto) Lymph # (Auto) Seg Neuts % (Manual) PT 17.0 H INR 1.35 H ABG pH ABG pO2 ABG O2 Saturation Oxyhemoglobin Sodium Potassium Chloride Carbon Dioxide BUN 28 H Creatinine Glucose 101 H POC Glucose 64 L Magnesium NT-Pro-B Natriuret Pep Total Protein Albumin Digoxin 09/11/20 09/11/20 09/12/20 03:54 03:54 08:22 RBC Hgb Hct MCV MCH RDW Plt Count [place] % (Auto) Lymph # (Auto) Seg Neuts % (Manual) PT 16.2 H 16.4 H INR 1.27 H 1.29 H ABG pH ABG pO2 ABG O2 Saturation Oxyhemoglobin Sodium 135 L Potassium Chloride Carbon Dioxide BUN 30 H Creatinine Glucose POC Glucose Magnesium NT-Pro-B Natriuret Pep Total Protein Albumin Digoxin 09/12/20 09/13/20 09/13/20 08:22 05:07 05:07 RBC 5.73 H Hgb 18.6 H Hct 57.0 H MCV 99 H MCH 33 H RDW 15.3 H Plt Count 130 L [place] % (Auto) Lymph # (Auto) Seg Neuts % (Manual) PT 17.8 H INR 1.45 H ABG pH ABG pO2 ABG O2 Saturation Oxyhemoglobin Sodium 135 L Potassium Chloride Carbon Dioxide BUN 28 H Creatinine Glucose POC Glucose Magnesium NT-Pro-B Natriuret Pep Total Protein Albumin Digoxin Chest x-ray: pending Allied health notes reviewed: nursing
[2020-09-13] MEDS: WARFARIN 2 MG TAB PO SCH (17:51)
[2020-09-13] MEDS: DIGOXIN 0.25 MG TAB PO SCH (17:52)
[2020-09-14] MEDS: dilTIAZem 30 MG TAB PO SCH ×2 (02:44→10:30)
--- NOTE | 2020-09-14 07:47 | Progress Note ---
Assessment and Plan Assessment and plan: (1) Atrial fibrillation with rapid ventricular response Current Visit: Yes Status: Acute Plan to address problem: S/p IV push Cardizem and Cardizem drip in the ED Cardizem drip dc and changed to po per union contract representative Cardiology consult, appreciate recommendations Continue metoprolol, diltiazem and digoxin for rate control Continue warfarin with a target INR 2-3 - pharmacy to dose 09/12 dose increased to 8 mg due to continued subtherapeutic INR 09/13: INR increased however still subtherapeutic, pharmacy to continue a 8 mg dose for now (2) Systolic CHF Current Visit: Yes Status: Acute Qualifiers: Heart failure chronicity: acute on chronic Qualified Code(s): I50.23 - Acut e on chronic systolic (congestive) heart failure Plan to address problem: ASA, diuretic, afterload reduction Anticoagulation with warfarin, PKS consulted Strict intake and output Daily weights 05/2020 Echocardiogram shows EF of 30 to 35% with cardiomyopathy, mild MS and mild dilation of left atrium. 05/2020 Lexiscan stress test was negative for ischemia (3) Noncompliance with medication regimen Current Visit: Yes Status: Chronic Plan to address problem: Compliance with medication is encouraged. Patient verbalized understanding. CM consulted (4) Alcohol abuse Current Visit: Yes Status: Chronic Plan to address problem: Alcohol cessation counseling provided CIWA protocol As needed Ativan and IM Haldol Fall and aspiration precautions (5) DVT prophylaxis Current Visit: Yes Status: Acute Plan to address problem: Systemic anticoagulation with warfarin SCDs bilateral extremities while in bed (6) Discharge planning issues Current Visit: Yes Status: Acute Plan to address problem: 09/11 PT consulted who recommends SNF placement if unable to return to previous living accommodations 09/11 cm consulted 09/12 cm personally contacted for consultation for social issues History Interval history: 60-year-old male with atrial fibrillation, HFrEF (30-35%), hypertension, medical noncompliance, alcohol abuse (~4 beers/day) and tobacco abuse presented to the emergency room on 09/05 with shortness of breath and chest pain which has been ongoing for about 3 days with some nausea but no vomiting and mild swelling in his lower extremities. He was admitted with Lucien cole with RVR and was given Cardizem IV and started on a Cardizem drip in the emergency department and was also noted to have elevated proBNP. Cardiology was consulted. This morning on my examination patient is alert and oriented. Patient is very agreeable to co mpliance with medications to avoid recurrent hospitalizations. Patient states CM can speak to his friend Soniya on the phone. His INR remains subtherapeutic however has increased. 09/06: Patient still in A. fib but RVR has improved. Will start patient on his home medication. Again counseling provided to the patient with importance of better management. Await cardiology input. Anticipate discharge in a.m. 09/07: Diltiazem changed to p.o. 09/08: Haldol as needed 09/09: suptheraputic INR, B wrist restraints in place 09/10: CM consulted 09/11: PT consulted who recommends 3 1 commode, shower chair and SNF placement if unable to return to previous living situation.09/12: His INR remains subt herapeutic, PKS following and warfarin dose was increased. I personally called CM today for consultation. PT consultation recommends subacute rehab if patient cannot return to her previous living situation. 09/14; patient has persistent A. fib, rate controlled. Patient is not uninsured and currently on warfarin. Pharmacy is following. INR was 1.45 yesterday and pending today's result. Patient can be discharged once INR is therapeutic. Patient is not in alcohol withdrawal delirium tremens. Cardiology consult appreciated. History Interval history: Patient was seen and evaluated this morning, patient did not have any complaints Patient is off restraints Patient is not in alcohol withdrawal delirium tremens Hospitalist Physical - Physical exam Narrative exam: Not in cardiopulmonary distress. The patient appeared well nourished and normally developed. Vital signs as documented. Head exam is unremarkable. No scleral icterus . Neck is without jugular venous distension, thyromegaly, or carotid bruits. Lungs are clear to auscultation. Cardiac exam reveals irregular rate and Rhythm. Abdominal exam reveals normal bowel sounds, nontender, no organomegaly. Extremities are nonedematous and both femoral and pedal pulses are normal. 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 No focal weakness. - Constitutional Vitals: Temp Pulse Resp BP Pulse Ox 98.0 F 62 18 138/74 98 09/14/20 04:09 09/14/20 04:09 09/14/20 04:09 09/14/20 04:09 09/14/20 04:09 General appearance: Present: no acute distress, well-nourished HEART Score - HEART Score Troponin: Troponin T < 0.010 ng/mL (0.00-0.029) 09/05/20 23:31 Results - Labs CBC & Chem 7: 09/12/20 08:22 09/13/20 05:07 Labs: Laboratory Last Values WBC 8.0 K/mm3 (4.5-11.0) 09/12/20 08:22 RBC 5.73 M/mm3 (3.65-5.03) H 09/12/20 08:22 Hgb 18.6 gm/dl (11.8-15.2) H 09/12/20 08:22 Hct 57.0 % (35.5-45.6) H 09/12/20 08:22 MCV 99 fl (84-94) H 09/12/20 08:22 MCH 33 pg (28-32) H 09/12/20 08:22 MCHC 33 % (32-34) 09/12/20 08:22 RDW 15.3 % (13.2-15.2) H 09/12/20 08:22 Plt Count 130 K/mm3 (140-440) L 09/12/20 08:22 Lymph % (Auto) 17.3 % (13.4-35.0) 09/05/20 18:04 [place] % (Auto) Upset Welding Machine Operator 09/06/20 03:51 Eos % (Auto) 0.8 % (0.0-4.3) 09/05/20 18:04 Baso % (Auto) Upset Welding Machine Operator 09/06/20 03:51 Lymph # (Auto) 1.0 K/mm3 (1.2-5.4) L 09/05/20 18:04 [place] # (Auto) 0.7 K/mm3 (0.0-0.8) 09/05/20 18:04 Eos # (Auto) 0.0 K/mm3 (0.0-0.4) 09/05/20 18:04 Baso # (Auto) 0.0 K/mm3 (0.0-0.1) 09/05/20 18:04 Add Manual Diff Complete 09/06/20 03:51 Total Counted 100 09/06/20 03:51 Seg Neutrophils % 68.0 % (40.0-70.0) 09/05/20 18:04 Seg Neuts % (Manual) 74.0 % (40.0-70.0) H 09/06/20 03:51 Band Neutrophils % 0 % 09/06/20 03:51 Lymphocytes % (Manual) 22.0 % (13.4-35.0) 09/06/20 03:51 Reactive Lymphs % (Man) 0 % 09/06/20 03:51 Monocytes % (Manual) 4.0 % (0.0-7.3) 09/06/20 03:51 Eosinophils % (Manual) 0 % (0.0-4.3) 09/06/20 03:51 Basophils % (Manual) 0 % (0.0-1.8) 09/06/20 03:51 Metamyelocytes % 0 % 09/06/20 03:51 Myelocytes % 0 % 09/06/20 03:51 Promyelocytes % 0 % 09/06/20 03:51 Blast Cells % 0 % 09/06/20 03:51 Nucleated RBC % Not Reportable 09/06/20 03:51 Seg Neutrophils # 3.9 K/mm3 (1.8-7.7) 09/05/20 18:04 Seg Neutrophils # Man 4.4 K/mm3 (1.8-7.7) 09/06/20 03:51 Band Neutrophils # 0.0 K/mm3 09/06/20 03:51 Lymphocytes # (Manual) 1.3 K/mm3 (1.2-5.4) 09/06/20 03:51 Abs React Lymphs (Man) 0.0 K/mm3 09/06/20 03:51 Monocytes # (Manual) 0.2 K/mm3 (0.0-0.8) 09/06/20 03:51 Eosinophils # (Manual) 0.0 K/mm3 (0.0-0.4) 09/06/20 03:51 Basophils # (Manual) 0.0 K/mm3 (0.0-0.1) 09/06/20 03:51 Metamyelocytes # 0.0 K/mm3 09/06/20 03:51 Myelocytes # 0.0 K/mm3 09/06/20 03:51 Promyelocytes # 0.0 K/mm3 09/06/20 03:51 Blast Cells # 0.0 K/mm3 09/06/20 03:51 WBC Morphology Not Reportable 09/06/20 03:51 Hypersegmented Neuts Not Reportable 09/06/20 03:51 Hyposegmented Neuts Not Reportable 09/06/20 03:51 Hypogranular Neuts Not Reportable 09/06/20 03:51 Smudge Cells Not Reportable 09/06/20 03:51 Toxic Granulation Not Reportable 09/06/20 03:51 Toxic Vacuolation Not Reportable 09/06/20 03:51 Dohle Bodies Not Reportable 09/06/20 03:51 Pelger-Huet Anomaly Not Reportable 09/06/20 03:51 Yasmin Rods Not Reportable 09/06/20 03:51 Platelet Estimate Consistent w auto 09/06/20 03:51 Clumped Platelets Not Reportable 09/06/20 03:51 Plt Clumps, EDTA Not Reportable 09/06/20 03:51 Large Platelets Not Reportable 09/06/20 03:51 Giant Platelets Not Reportable 09/06/20 03:51 Platelet Satelliting Not Reportable 09/06/20 03:51 Plt Morphology Comment Not Reportable 09/06/20 03:51 RBC Morphology Not Reportable 09/06/20 03:51 Dimorphic RBCs Not Reportable 09/06/20 03:51 Polychromasia Not Reportable 09/06/20 03:51 Hypochromasia Not Reportable 09/06/20 03:51 Poikilocytosis Not Reportable 09/06/20 03:51 Anisocytosis Not Reportable 09/06/20 03:51 Microcytosis Not Reportable 09/06/20 03:51 Macrocytosis Not Reportable 09/06/20 03:51 Spherocytes Not Reportable 09/06/20 03:51 Pappenheimer Bodies Not Reportable 09/06/20 03:51 Sickle Cells Not Reportable 09/06/20 03:51 Target Cells Not Reportable 09/06/20 03:51 Tear Drop Cells Not Reportable 09/06/20 03:51 Ovalocytes Not Reportable 09/06/20 03:51 Helmet Cells Not Reportable 09/06/20 03:51 Lewis-Pelkie Bodies Not Reportable 09/06/20 03:51 [place] Rings Not Reportable 09/06/20 03:51 Stepan Cells Not Reportable 09/06/20 03:51 Bite Cells Not Reportable 09/06/20 03:51 Crenated Cell Not Reportable 09/06/20 03:51 Elliptocytes Not Reportable 09/06/20 03:51 Acanthocytes (Spur) Not Reportable 09/06/20 03:51 Rouleaux Not Reportable 09/06/20 03:51 Hemoglobin C Crystals Not Reportable 09/06/20 03:51 Schistocytes Not Reportable 09/06/20 03:51 Malaria parasites Not Reportable 09/06/20 03:51 Ki Bodies Not Reportable 09/06/20 03:51 Hem Pathologist Commnt No 09/06/20 03:51 PT 17.8 Sec. (12.2-14.9) H 09/13/20 05:07 INR 1.45 (0.87-1.13) H 09/13/20 05:07 APTT 28.2 Sec. (24.2-36.6) 09/05/20 18:04 ABG pH 7.454 pH Units (7.350-7.450) H 09/07/20 17:20 ABG pCO2 35.2 mm Hg 09/07/20 17:20 ABG pO2 69.9 mm Hg (80.0-90.0) L 09/07/20 17:20 ABG HCO3 24.2 mmol/L (20.0-26.0) 09/07/20 17:20 ABG O2 Saturation 94.6 % (95.0-99.0) L 09/07/20 17:20 ABG O2 Content 22.1 (0.0-44) 09/07/20 17:20 ABG Base Excess 0.8 mmol/L (-2.0-3.0) 09/07/20 17:20 ABG Hemoglobin 17.0 gm/dl (14.0-18.0) 09/07/20 17:20 ABG Carboxyhemoglobin 1.6 % (0.0-5.0) 09/07/20 17:20 ABG Methemoglobin 0.5 % (0.0-1.5) 09/07/20 17:20 Oxyhemoglobin 92.6 % (95.0-99.0) L 09/07/20 17:20 FiO2 21 % 09/07/20 17:20 Sodium 135 mmol/L (137-145) L 09/13/20 05:07 Potassium 4.4 mmol/L (3.6-5.0) 09/13/20 05:07 Chloride 99.0 mmol/L (98-107) 09/13/20 05:07 Carbon Dioxide 26 mmol/L (22-30) 09/13/20 05:07 Anion Gap 14 mmol/L 09/13/20 05:07 BUN 28 mg/dL (9-20) H 09/13/20 05:07 Creatinine 1.1 mg/dL (0.8-1.3) 09/13/20 05:07 Estimated GFR > 60 ml/min 09/13/20 05:07 BUN/Creatinine Ratio 25 % 09/13/20 05:07 Glucose 99 mg/dL (75-100) 09/13/20 05:07 POC Glucose 64 (70-105) L 09/09/20 08:16 Calcium 9.3 mg/dL (8.4-10.2) 09/13/20 05:07 Magnesium 1.80 mg/dL (1.7-2.3) 09/09/20 05:15 Total Bilirubin 0.50 mg/dL (0.1-1.2) 09/05/20 18:04 AST 26 units/L (5-40) 09/05/20 18:04 ALT 12 units/L (7-56) 09/05/20 18:04 Alkaline Phosphatase 106 units/L (35-129) 09/05/20 18:04 Troponin T < 0.010 ng/mL (0.00-0.029) 09/05/20 23:31 NT-Pro-B Natriuret Pep 2644 pg/mL (0-900) H 09/05/20 18:04 Total Protein 9.0 g/dL (6.3-8.2) H 09/05/20 18:04 Albumin 3.2 g/dL (3.9-5) L 09/05/20 18:04 Albumin/Globulin Ratio 0.6 % 09/05/20 18:04 TSH 1.650 mlU/mL (0.270-4.200) 09/05/20 18:11 Free T4 1.19 ng/dL (0.76-1.46) 09/05/20 18:11 Digoxin 0.3 ng/mL (0.9-2.0) L 09/05/20 18:04 Plasma/Serum Alcohol 0.07 % (0-0.07) 09/05/20 18:04 Jett/IV: Voiding Method Urinal IV Catheter Type [Right INT / Saline Lock Forearm] IV Catheter Type [Left INT / Saline Lock Antecubital] Active Medications - Current Medications Current Medications: Generic Name Dose Route Start Last Admin Trade Name Freq PRN Reason Stop Dose Admin Acetaminophen 650 mg 09/05/20 22:32 09/07/20 21:35 Tylenol PO 650 mg Q6H PRN Administration Pain MILD(1-3)/Fever >100.5/GILLESPIE Digoxin 0.25 mg 09/06/20 17:00 09/13/20 17:52 Lanoxin PO 0.25 mg DAILY@1700 LUZMARIA Administration Diltiazem HCl 60 mg 09/08/20 10:33 09/14/20 02:44 Cardizem PO 60 mg Q8H LUZMARIA Administration Furosemide 40 mg 09/11/20 10:00 09/13/20 10:04 Lasix PO 40 mg QDAY LUZMARIA Administration Haloperidol Lactate 2 mg 09/08/20 14:03 Haldol IM Q12HR PRN Agitation Lisinopril 10 mg 09/09/20 10:00 09/13/20 10:05 Zestril PO 10 mg QDAY LUZMARIA Administration Lorazepam 2 mg 09/05/20 22:09 09/10/20 21:50 Ativan PO 2 mg Q1HR PRN Administration CIWA-Ar 8-15 Lorazepam 2 mg 09/05/20 22:09 09/08/20 12:15 Ativan IV 2 mg Q1HR PRN Administration CIWA-Ar 8-15 Lorazepam 4 mg 09/05/20 22:09 09/08/20 17:10 Ativan IV 4 mg Q1HR PRN Administration CIWA-Ar 16-25 Magnesium Hydroxide 30 ml 09/05/20 22:32 Milk Of Magnesia PO Q4H PRN Constipation Magnesium Oxide 400 mg 09/06/20 22:00 09/13/20 21:48 Mag-Ox PO 400 mg BID LUZMARIA Administration Metoprolol Tartrate 50 mg 09/06/20 22:00 09/13/20 21:48 Metoprolol PO 50 mg BID LUZMARIA Administration Morphine Sulfate 2 mg 09/05/20 22:32 09/06/20 11:18 Morphine IV 2 mg Q5MIN PRN Administration Chest Pain unrelieved by NTG Nicotine 14 mg 09/12/20 11:00 09/13/20 10:06 Habitrol TD 14 mg QDAY LUZMARIA Administration Ondansetron HCl 4 mg 09/05/20 22:32 09/06/20 11:18 Zofran IV 4 mg Q8H PRN Administration Nausea And Vomiting Sodium Chloride 10 ml 09/06/20 10:00 09/13/20 21:49 Sodium Chloride Flush Syringe 10 Ml IV 10 ml BID LUZMARIA Administration Sodium Chloride 10 ml 09/05/20 22:32 Sodium Chloride Flush Syringe 10 Ml IV PRN PRN LINE FLUSH Spironolactone 50 mg 09/12/20 10:00 09/13/20 10:06 Aldactone PO 50 mg QDAY LUZMARIA Administration Warfarin Sodium 8 mg 09/11/20 17:00 09/13/20 17:51 Coumadin PO 8 mg DAILY@1700 LUZMARIA Administration Protocol Nutrition/Malnutrition Assess - Dietary Evaluation Nutrition/Malnutrition Findings: Nutrition Notes Start: 09/06/20 14:03 Freq: Status: Active Protocol: Document 09/11/20 12:52 ROHINI (Rec: 09/11/20 12:56 ROHINI [id number]) Co-Sign 09/11/20 12:52 LP Nutrition Notes Need for Assessment generated from: Education Initial or Follow up Brief Note Current Diagnosis Hypertension,Heart Failure Other Pertinent Diagnosis Afib, ETOH abuse Current Diet Cardiac Subjective/Other Information F/u diet education needs. Used dust collector attendant phone. Discussed heart healthy diet and Vitamin K intake with Coumadin. Nutrition Intervention Teaching Recipient Patient Learning Readiness Good Teaching Methods Discussion,Handout Response to Teaching Verbalize understanding Education Handouts Provided Low sodium Vitamin K and Coumadin Barriers to Learning Language RD phone number provided Yes Patient aware of follow up options Yes Actions To Overcome Barriers Contact Concrete Inspector Revisit per MD consult or patient Sign Off request:
[2020-09-14] MEDS: LISINOPRIL 5 MG TAB PO SCH (10:15)
[2020-09-14] MEDS: NICOTINE 14 MG/24 HR PATCH TD SCH (10:16)
[2020-09-14] MEDS: SPIRONOLACTONE 25 MG TAB PO SCH (10:16)
[2020-09-14] MEDS: FUROSEMIDE 40 MG TAB PO SCH (10:16)
[2020-09-14] MEDS: MAGNESIUM OXIDE 400 MG TAB PO SCH ×2 (10:16→22:15)
[2020-09-14] MEDS: METOPROLOL TARTRATE 50 MG TAB PO SCH ×2 (10:16→22:15)
[2020-09-14 10:35] LABS: INR 1.58 (0.87-1.13)
--- NOTE | 2020-09-14 11:46 | Progress Note ---
Assessment and Plan Atrial fibrillation with rapid ventricular response Shortness of Breath Systolic CHF Noncompliance with medication regimen Alcohol abuse NIKKI - prn supplemental oxygen to keep O2 sats > 90% - prn bronchodilators with pulm hygiene per RT - EtOH withdrawal / CIWA protocol - full anticoagulation re: A-fib - rate control / ACS management per cardiology otherwise - avoid nephrotoxins, renally dose all medications - mobility protocols to prevent pressure ulcers - PT/OT as tolerated - Wound care per RN/WCT - continue accuchecks with glycemic control per SSI for target blood glucose < 180 mg/dL - Smoking cessation strongly counseled at the bedside - home oxygen evaluation at discharge - prn analgesia per pain score - GI & VTE prophylaxis - Flu & pneumovax per protocol - Pulmonary out patient follow up for PFTs and optimization of respiratory status - continue other care per attending / other consultants ... re-evaluate in am & prn Subjective Date of service: 09/14/20 Principal diagnosis: A-Fib with RVR; SOB; HFrEF; Alcohol abuse; NIKKI Interval history: Patient is seen today for: A-Fib with RVR; SOB; HFrEF; Noncompliance with medication regimen; Alcohol abuse; NIKKI Seen and examined at bedside; 24hour events reviewed; nursing and respiratory care staff consulted; no adverse overnight events reported to me; resting peacefully in bed; feels better; No N/V/F/C Objective Vital Signs - 12hr 09/14/20 09/14/20 09/14/20 02:44 04:09 08:03 Temperature 98.0 F 97.3 F L Pulse Rate 69 62 59 L Respiratory 18 20 Rate Blood Pressure 145/80 138/74 126/84 O2 Sat by Pulse 98 100 Oximetry 09/14/20 09/14/20 10:15 10:16 Temperature Pulse Rate 59 L 59 L Respiratory Rate Blood Pressure 126/84 126/84 O2 Sat by Pulse Oximetry Constitutional: no acute distress, other (elderly male with normal respiratory effort at rest) Eyes: non-icteric ENT: oropharynx moist Neck: supple, no JVD Effort: normal Ascultation: Bilateral: clear, diminished breath sounds, other (Prolonged expiratory phase.) Percussion: Bilateral: not dull Cardiovascular: irregular rhythm Gastrointestinal: normoactive bowel sounds, soft, non-tender, non-distended Integumentary: normal Extremities: no cyanosis, no edema, pulses normal, no ischemia or petechiae Neurologic: normal mental status, non-focal exam, pupils equal and round, CN II- XII normal, motor strength normal and Psychiatric: mood appropriate, affect normal CBC and BMP: 09/12/20 08:22 09/13/20 05:07 ABG, PT/INR, D-dimer: ABG ABG pH 7.454 pH Units (7.350-7.450) H 09/07/20 17:20 ABG pCO2 35.2 mm Hg 09/07/20 17:20 ABG pO2 69.9 mm Hg (80.0-90.0) L 09/07/20 17:20 ABG O2 Saturation 94.6 % (95.0-99.0) L 09/07/20 17:20 PT/INR, D-dimer PT 19.1 Sec. (12.2-14.9) H 09/14/20 08:10 INR 1.58 (0.87-1.13) H 09/14/20 08:10 Abnormal lab findings: Abnormal Labs 09/05/20 09/05/20 09/05/20 18:04 18:04 18:04 RBC Hgb 16.1 H Hct 47.6 H MCV 97 H MCH 33 H RDW Plt Count 108 L [place] % (Auto) 13.0 H Lymph # (Auto) 1.0 L Seg Neuts % (Manual) PT INR ABG pH ABG pO2 ABG O2 Saturation Oxyhemoglobin Sodium 136 L Potassium Chloride Carbon Dioxide 20 L BUN Creatinine Glucose POC Glucose Magnesium NT-Pro-B Natriuret Pep Total Protein 9.0 H Albumin 3.2 L Digoxin 0.3 L 09/05/20 09/05/20 09/06/20 18:04 18:04 03:51 RBC Hgb 16.1 H Hct 47.9 H MCV 97 H MCH 33 H RDW Plt Count 100 L [place] % (Auto) Lymph # (Auto) Seg Neuts % (Manual) 74.0 H PT INR ABG pH ABG pO2 ABG O2 Saturation Oxyhemoglobin Sodium Potassium Chloride Carbon Dioxide BUN Creatinine Glucose POC Glucose Magnesium 1.50 L NT-Pro-B Natriuret Pep 2644 H Total Protein Albumin Digoxin 09/06/20 09/06/20 09/06/20 03:51 03:51 04:04 RBC Hgb Hct MCV MCH RDW Plt Count [place] % (Auto) Lymph # (Auto) Seg Neuts % (Manual) PT 15.0 H INR 1.16 H ABG pH ABG pO2 ABG O2 Saturation Oxyhemoglobin Sodium 134 L Potassium Chloride 97.5 L Carbon Dioxide BUN Creatinine Glucose POC Glucose Magnesium 1.50 L NT-Pro-B Natriuret Pep Total Protein Albumin Digoxin 09/07/20 09/07/20 09/08/20 06:11 17:20 04:46 RBC Hgb Hct MCV MCH RDW Plt Count [place] % (Auto) Lymph # (Auto) Seg Neuts % (Manual) PT 15.0 H INR 1.16 H ABG pH 7.454 H ABG pO2 69.9 L ABG O2 Saturation 94.6 L Oxyhemoglobin 92.6 L Sodium Potassium Chloride Carbon Dioxide BUN Creatinine Glucose POC Glucose Magnesium 1.40 L NT-Pro-B Natriuret Pep Total Protein Albumin Digoxin 09/08/20 09/09/20 09/09/20 04:46 05:15 05:15 RBC Hgb Hct MCV MCH RDW Plt Count [place] % (Auto) Lymph # (Auto) Seg Neuts % (Manual) PT 16.5 H INR 1.30 H ABG pH ABG pO2 ABG O2 Saturation Oxyhemoglobin Sodium Potassium 3.5 L 3.5 L Chloride Carbon Dioxide BUN Creatinine 0.7 L Glucose POC Glucose Magnesium 1.50 L NT-Pro-B Natriuret Pep Total Protein Albumin Digoxin 09/09/20 09/10/20 09/10/20 08:16 04:35 04:35 RBC Hgb Hct MCV MCH RDW Plt Count [place] % (Auto) Lymph # (Auto) Seg Neuts % (Manual) PT 17.0 H INR 1.35 H ABG pH ABG pO2 ABG O2 Saturation Oxyhemoglobin Sodium Potassium Chloride Carbon Dioxide BUN 28 H Creatinine Glucose 101 H POC Glucose 64 L Magnesium NT-Pro-B Natriuret Pep Total Protein Albumin Digoxin 09/11/20 09/11/20 09/12/20 03:54 03:54 08:22 RBC Hgb Hct MCV MCH RDW Plt Count [place] % (Auto) Lymph # (Auto) Seg Neuts % (Manual) PT 16.2 H 16.4 H INR 1.27 H 1.29 H ABG pH ABG pO2 ABG O2 Saturation Oxyhemoglobin Sodium 135 L Potassium Chloride Carbon Dioxide BUN 30 H Creatinine Glucose POC Glucose Magnesium NT-Pro-B Natriuret Pep Total Protein Albumin Digoxin 09/12/20 09/13/20 09/13/20 08:22 05:07 05:07 RBC 5.73 H Hgb 18.6 H Hct 57.0 H MCV 99 H MCH 33 H RDW 15.3 H Plt Count 130 L [place] % (Auto) Lymph # (Auto) Seg Neuts % (Manual) PT 17.8 H INR 1.45 H ABG pH ABG pO2 ABG O2 Saturation Oxyhemoglobin Sodium 135 L Potassium Chloride Carbon Dioxide BUN 28 H Creatinine Glucose POC Glucose Magnesium NT-Pro-B Natriuret Pep Total Protein Albumin Digoxin 09/14/20 08:10 RBC Hgb Hct MCV MCH RDW Plt Count [place] % (Auto) Lymph # (Auto) Seg Neuts % (Manual) PT 19.1 H INR 1.58 H ABG pH ABG pO2 ABG O2 Saturation Oxyhemoglobin Sodium Potassium Chloride Carbon Dioxide BUN Creatinine Glucose POC Glucose Magnesium NT-Pro-B Natriuret Pep Total Protein Albumin Digoxin Allied health notes reviewed: nursing
--- NOTE | 2020-09-14 12:38 | Progress Note ---
Assessment and Plan - Patient Problems (1) Chronic atrial fibrillation Current Visit: Yes Status: Acute Plan to address problem: Patient has permanent atrial fibrillation and is recommended for a rate control strategy on chronic oral anticoagulation. On warfarin anticoagulation. (2) Dilated cardiomyopathy Current Visit: Yes Status: Acute Plan to address problem: Patient has a dilated cardiomyopathy with left ventricular ejection fraction 30 to 35%, presumed a nonischemic cardiomyopathy based on the normal perfusion study on his prior admission 3 months ago. We will continue guideline directed medical therapy including afterload agents, spironolactone and beta-blockers. Subjective Date of service: 09/14/20 Principal diagnosis: A-Fib with RVR; SOB; HFrEF; Alcohol abuse; NIKKI Interval history: Patient is comfortable, no cardiac complaints. Objective Vital Signs Temp Pulse Pulse Resp BP Pulse Ox 09/14/20 10:16 59 L 126/84 09/14/20 10:15 59 L 126/84 09/14/20 08:03 97.3 F L 59 L 20 126/84 100 09/14/20 04:09 98.0 F 62 18 138/74 98 09/14/20 02:44 69 145/80 09/13/20 22:25 76 16 97 09/13/20 21:48 73 128/69 09/13/20 19:49 70 09/13/20 19:45 98.0 F 76 18 128/69 97 09/13/20 17:52 65 107/69 09/13/20 16:06 98.1 F 65 18 107/69 98 - Physical Examination General: No Apparent Distress HEENT: Positive: PERRL Neck: Positive: neck supple Cardiac: Positive: irregularly irregular Lungs: Positive: Decreased Breath Sounds Neuro: Positive: Grossly Intact Abdomen: Positive: Soft Skin: Positive: Clear Extremities: Absent: edema - Labs and Meds Coagulation 09/14/20 Range/Units 08:10 PT 19.1 H (12.2-14.9) Sec. INR 1.58 H (0.87-1.13) - Allied health notes Allied health notes reviewed: nursing
[2020-09-14] MEDS: WARFARIN 10 MG TAB PO SCH (18:03)
[2020-09-14] MEDS: DIGOXIN 0.25 MG TAB PO SCH (18:04)
[2020-09-15] MEDS: dilTIAZem 30 MG TAB PO SCH ×4 (03:57→18:07)
[2020-09-15 06:43] LABS: INR 1.55 (0.87-1.13)
--- NOTE | 2020-09-15 08:17 | Progress Note ---
Subjective Date of service: 09/15/20 Principal diagnosis: A-Fib with RVR; SOB; HFrEF; Alcohol abuse; NIKKI Interval history: 60-year-old male with atrial fibrillation, HFrEF (30-35%), hypertension, medical noncompliance, alcohol abuse (~4 beers/day) and tobacco abuse presented to the emergency room on 09/05 with shortness of breath and chest pain which has been ongoing for about 3 days with some nausea but no vomiting and mild swelling in his lower extremities. He was admitted with A. fib with RVR and was given Cardizem IV and started on a Cardizem drip in the emergency department and was also noted to have elevated proBNP. Cardiology was consulted. This morning on my examination patient is alert and oriented. Patient is very agreeable to compliance with medications to avoid recurrent hospitalizations. Patient states CM can speak to his friend Soniya on the phone. His INR remains subtherapeutic however has increased. 09/06: Patient still in A. fib but RVR has improved. Will start patient on his home medication. Again counseling provided to the patient with importance of better management. Await cardiology input. Anticipate discharge in a.m. 09/07: Diltiazem changed to p.o. 09/08: Haldol as needed 09/09: suptheraputic INR, B wrist restraints in place 09/10: CM consulted 09/11: PT consulted who recommends 3 1 commode, shower chair and SNF placement if unable to return to previous living situation.09/12: His INR remains subtherapeutic, [facility] following and warfarin dose was increased. I personally called CM today for consultation. PT consultation recommends subacute rehab if patient cannot return to her previous living situation. 09/14; patient has persistent A. fib, rate controlled. Patient is not uninsured and currently on warfarin. Pharmacy is following. INR was 1.45 yesterday and pending today's result. Patient can be discharged once INR is therapeutic. Patient is not in alcohol withdrawal delirium tremens. Cardiology consult appreciated. 09/15 patient is resting in the bed, awake and alert, no specific complaints, denies chest pain or shortness of breath. INR results reviewed A/P: -Atrial fibrillation with RVR Rate controlled Cardiology note reviewed Continue present management INR subtherapeutic at 1.55 Continue warfarin pt. will receive warfarin 12.5 mg today Discussed with pharmacy Acute kidney injury Improved Acute hypoxic respiratory failure Improved Pulmonary note reviewed Dilated cardiomyopathy EF 30 to 35% History of alcohol abuse Patient is not in withdrawal History of noncompliance with medication Objective - Constitutional Vitals: Vital Signs - 12hr 09/14/20 09/14/20 09/14/20 22:15 22:20 23:37 Temperature 98.3 F Pulse Rate 60 65 Pulse Rate [ 60 Apical] Respiratory 16 18 Rate Blood Pressure 151/83 122/71 O2 Sat by Pulse 98 100 Oximetry 09/15/20 09/15/20 09/15/20 04:03 04:04 04:09 Temperature 98.4 F Pulse Rate 69 140 H 75 Pulse Rate [ Apical] Respiratory 16 16 Rate Blood Pressure 123/71 123/71 O2 Sat by Pulse 76 L 98 Oximetry 09/15/20 09/15/20 04:22 07:30 Temperature 97.8 F 98.4 F Pulse Rate 69 60 Pulse Rate [ Apical] Respiratory 18 20 Rate Blood Pressure 142/85 112/66 O2 Sat by Pulse 93 97 Oximetry General appearance: Present: no acute distress - EENT Eyes: PERRL, EOM intact ENT: hearing intact, clear oral mucosa - Neck Neck: supple, normal ROM - Respiratory Respiratory effort: normal Respiratory: bilateral: CTA, diminished - Cardiovascular Rhythm: irregularly irregular Heart Sounds: Present: S1 & S2 Extremities: No edema - Gastrointestinal General gastrointestinal: Present: soft, non-tender Rectal Exam: deferred - Genitourinary Male genitourinary: deferred - Integumentary Integumentary: clear - Musculoskeletal Musculoskeletal: strength equal bilaterally - Neurologic Neurologic: moves all extremities - Psychiatric Psychiatric: appropriate mood/affect - Labs CBC & Chem 7: 09/12/20 08:22 09/13/20 05:07 Labs: Abnormal lab results 09/14/20 09/15/20 Range/Units 08:10 05:49 PT 19.1 H 18.8 H (12.2-14.9) Sec. INR 1.58 H 1.55 H (0.87-1.13) HEART Score - HEART Score Troponin: Troponin T < 0.010 ng/mL (0.00-0.029) 09/05/20 23:31
[2020-09-15] MEDS: LISINOPRIL 5 MG TAB PO SCH (09:30)
[2020-09-15] MEDS: SPIRONOLACTONE 25 MG TAB PO SCH (09:30)
[2020-09-15] MEDS: METOPROLOL TARTRATE 50 MG TAB PO SCH ×2 (10:09→21:34)
[2020-09-15] MEDS: NICOTINE 14 MG/24 HR PATCH TD SCH (10:10)
[2020-09-15] MEDS: MAGNESIUM OXIDE 400 MG TAB PO SCH ×2 (10:11→21:34)
[2020-09-15] MEDS: FUROSEMIDE 40 MG TAB PO SCH (10:11)
--- NOTE | 2020-09-15 15:22 | Progress Note ---
Assessment and Plan - Patient Problems (1) Chronic atrial fibrillation Current Visit: Yes Status: Acute Plan to address problem: Patient has permanent atrial fibrillation and is recommended for a rate control strategy on chronic oral anticoagulation. On warfarin anticoagulation. (2) Dilated cardiomyopathy Current Visit: Yes Status: Acute Plan to address problem: Patient has a dilated cardiomyopathy with left ventricular ejection fraction 30 to 35%, presumed a nonischemic cardiomyopathy based on the normal perfusion study on his prior admission 3 months ago. We will continue guideline directed medical therapy including afterload agents, spironolactone and beta-blockers. Subjective Date of service: 09/15/20 Principal diagnosis: A-Fib with RVR; SOB; HFrEF; Alcohol abuse; NIKKI Interval history: Patient is comfortable, no cardiac complaints. Objective Vital Signs Temp Pulse Pulse Resp BP Pulse Ox 09/15/20 13:00 69 09/15/20 12:54 98.0 F 70 18 96/52 97 09/15/20 10:09 76 109/76 09/15/20 10:07 84 110/67 09/15/20 10:00 73 70 17 99 09/15/20 09:30 76 109/76 09/15/20 07:30 98.4 F 60 20 112/66 97 09/15/20 04:22 97.8 F 69 18 142/85 93 09/15/20 04:09 75 16 98 09/15/20 04:04 98.4 F 140 H 16 123/71 76 L 09/15/20 04:03 69 123/71 09/14/20 23:37 98.3 F 65 18 122/71 100 09/14/20 22:20 60 16 98 09/14/20 22:15 60 151/83 09/14/20 20:14 98.3 F 60 18 151/83 98 09/14/20 20:04 89 09/14/20 18:04 78 140/80 09/14/20 16:28 98.2 F 78 20 140/80 99 - Physical Examination General: No Apparent Distress HEENT: Positive: PERRL Neck: Positive: neck supple Cardiac: Positive: irregularly irregular Lungs: Positive: Decreased Breath Sounds Neuro: Positive: Grossly Intact Abdomen: Positive: Soft Skin: Positive: Clear Extremities: Absent: edema - Labs and Meds Coagulation 09/15/20 Range/Units 05:49 PT 18.8 H (12.2-14.9) Sec. INR 1.55 H (0.87-1.13) - Allied health notes Allied health notes reviewed: nursing
[2020-09-15] MEDS: DIGOXIN 0.25 MG TAB PO SCH (16:42)
[2020-09-15] MEDS: WARFARIN 10 MG TAB PO SCH (16:42)
[2020-09-15] MEDS ORDERED: WARFARIN 2.5 MG TAB PO SCH (17:00)
[2020-09-16] MEDS: dilTIAZem 30 MG TAB PO SCH ×2 (01:43→10:29)
[2020-09-16 06:24] LABS: INR 1.99 (0.87-1.13)
[2020-09-16] MEDS ORDERED: FUROSEMIDE 40 MG TAB PO SCH (08:00)
[2020-09-16] MEDS: LISINOPRIL 5 MG TAB PO SCH (09:12)
[2020-09-16] MEDS: SPIRONOLACTONE 25 MG TAB PO SCH (09:12)
[2020-09-16] MEDS: NICOTINE 14 MG/24 HR PATCH TD SCH (09:12)
[2020-09-16] MEDS: MAGNESIUM OXIDE 400 MG TAB PO SCH (09:12)
[2020-09-16] MEDS: METOPROLOL TARTRATE 50 MG TAB PO SCH (09:14)
--- NOTE | 2020-09-16 11:52 | Progress Note ---
Assessment and Plan Persistent atrial fibrillation - rate controlled metoprolol, diltiazem and digoxin on warfarin for oral anticoagulation Cardiomyopathy, non-ischemia MPI 05/2020 - No ischemia Echo 05/2020 - LVEF 35%, mild MS and left atrial dilatation. Hx of Alcohol abuse Non-compliance Recommendations: Continue for rate controlling agents and oral anticoagulation for persistent atrial fibrillation. Otherwise, conservative cardiac management. Subjective Date of service: 09/16/20 Principal diagnosis: A-Fib with RVR; SOB; HFrEF; Alcohol abuse; NIKKI Interval history: Appears comfortable. Afib with a well controlled ventricular rate on telemetry. Objective Vital Signs Temp Pulse Pulse Resp BP Pulse Ox 09/16/20 10:29 84 132/65 09/16/20 10:00 65 09/16/20 09:14 65 110/65 09/16/20 09:12 80 110/65 09/16/20 08:10 97.2 F L 68 18 118/50 100 09/16/20 07:54 78 15 98 09/16/20 03:38 98.6 F 56 L 16 97/62 93 09/15/20 23:18 97.4 F L 59 L 16 115/69 97 09/15/20 22:00 91 H 99 09/15/20 19:36 97.7 F 76 16 128/74 98 09/15/20 18:08 79 134/82 99 09/15/20 18:07 84 134/82 09/15/20 17:39 60 09/15/20 16:42 69 123/81 09/15/20 13:00 69 09/15/20 12:54 98.0 F 70 18 96/52 97 - Physical Examination General: No Apparent Distress HEENT: Positive: PERRL Neck: Positive: neck supple Cardiac: Positive: irregularly irregular Lungs: Positive: Decreased Breath Sounds Neuro: Positive: Grossly Intact Abdomen: Positive: Soft Skin: Positive: Clear Extremities: Absent: edema - Labs and Meds Coagulation 09/16/20 Range/Units 05:48 PT 22.9 H (12.2-14.9) Sec. INR 1.99 H (0.87-1.13) - Allied health notes Allied health notes reviewed: nursing
[2020-09-16 12:00] VITALS: BP 132/83
--- NOTE | 2020-09-16 13:43 | Progress Note ---
Assessment and Plan - Patient Problems (1) Atrial fibrillation with rapid ventricular response Status: Acute (2) Chest pain Status: Acute (3) Shortness of breath Status: Acute (4) Alcohol abuse Status: Chronic Subjective Date of service: 09/16/20 Principal diagnosis: A-Fib with RVR; SOB; HFrEF; Alcohol abuse; NIKKI Interval history: Patient discharged before I see the patient. Objective Vital Signs - 12hr 09/16/20 09/16/20 09/16/20 03:38 07:54 08:10 Temperature 98.6 F 97.2 F L Pulse Rate 56 L 68 Pulse Rate [ 78 Apical] Respiratory 16 15 18 Rate Blood Pressure 97/62 118/50 Blood Pressure [Left] O2 Sat by Pulse 93 98 100 Oximetry 09/16/20 09/16/20 09/16/20 09:12 09:14 10:00 Temperature Pulse Rate 80 65 65 Pulse Rate [ Apical] Respiratory Rate Blood Pressure 110/65 110/65 Blood Pressure [Left] O2 Sat by Pulse Oximetry 09/16/20 09/16/20 10:29 11:57 Temperature 98.3 F Pulse Rate 84 78 Pulse Rate [ Apical] Respiratory 16 Rate Blood Pressure 132/65 Blood Pressure 132/83 [Left] O2 Sat by Pulse 97 Oximetry Effort: normal CBC and BMP: 09/12/20 08:22 09/13/20 05:07 ABG, PT/INR, D-dimer: ABG ABG pH 7.454 pH Units (7.350-7.450) H 09/07/20 17:20 ABG pCO2 35.2 mm Hg 09/07/20 17:20 ABG pO2 69.9 mm Hg (80.0-90.0) L 09/07/20 17:20 ABG O2 Saturation 94.6 % (95.0-99.0) L 09/07/20 17:20 PT/INR, D-dimer PT 22.9 Sec. (12.2-14.9) H 09/16/20 05:48 INR 1.99 (0.87-1.13) H 09/16/20 05:48 Abnormal lab findings: Abnormal Labs 09/05/20 09/05/20 09/05/20 18:04 18:04 18:04 RBC Hgb 16.1 H Hct 47.6 H MCV 97 H MCH 33 H RDW Plt Count 108 L [place] % (Auto) 13.0 H Lymph # (Auto) 1.0 L Seg Neuts % (Manual) PT INR ABG pH ABG pO2 ABG O2 Saturation Oxyhemoglobin Sodium 136 L Potassium Chloride Carbon Dioxide 20 L BUN Creatinine Glucose POC Glucose Magnesium NT-Pro-B Natriuret Pep Total Protein 9.0 H Albumin 3.2 L Digoxin 0.3 L 09/05/20 09/05/20 09/06/20 18:04 18:04 03:51 RBC Hgb 16.1 H Hct 47.9 H MCV 97 H MCH 33 H RDW Plt Count 100 L [place] % (Auto) Lymph # (Auto) Seg Neuts % (Manual) 74.0 H PT INR ABG pH ABG pO2 ABG O2 Saturation Oxyhemoglobin Sodium Potassium Chloride Carbon Dioxide BUN Creatinine Glucose POC Glucose Magnesium 1.50 L NT-Pro-B Natriuret Pep 2644 H Total Protein Albumin Digoxin 09/06/20 09/06/20 09/06/20 03:51 03:51 04:04 RBC Hgb Hct MCV MCH RDW Plt Count [place] % (Auto) Lymph # (Auto) Seg Neuts % (Manual) PT 15.0 H INR 1.16 H ABG pH ABG pO2 ABG O2 Saturation Oxyhemoglobin Sodium 134 L Potassium Chloride 97.5 L Carbon Dioxide BUN Creatinine Glucose POC Glucose Magnesium 1.50 L NT-Pro-B Natriuret Pep Total Protein Albumin Digoxin 09/07/20 09/07/20 09/08/20 06:11 17:20 04:46 RBC Hgb Hct MCV MCH RDW Plt Count [place] % (Auto) Lymph # (Auto) Seg Neuts % (Manual) PT 15.0 H INR 1.16 H ABG pH 7.454 H ABG pO2 69.9 L ABG O2 Saturation 94.6 L Oxyhemoglobin 92.6 L Sodium Potassium Chloride Carbon Dioxide BUN Creatinine Glucose POC Glucose Magnesium 1.40 L NT-Pro-B Natriuret Pep Total Protein Albumin Digoxin 09/08/20 09/09/20 09/09/20 04:46 05:15 05:15 RBC Hgb Hct MCV MCH RDW Plt Count [place] % (Auto) Lymph # (Auto) Seg Neuts % (Manual) PT 16.5 H INR 1.30 H ABG pH ABG pO2 ABG O2 Saturation Oxyhemoglobin Sodium Potassium 3.5 L 3.5 L Chloride Carbon Dioxide BUN Creatinine 0.7 L Glucose POC Glucose Magnesium 1.50 L NT-Pro-B Natriuret Pep Total Protein Albumin Digoxin 09/09/20 09/10/20 09/10/20 08:16 04:35 04:35 RBC Hgb Hct MCV MCH RDW Plt Count [place] % (Auto) Lymph # (Auto) Seg Neuts % (Manual) PT 17.0 H INR 1.35 H ABG pH ABG pO2 ABG O2 Saturation Oxyhemoglobin Sodium Potassium Chloride Carbon Dioxide BUN 28 H Creatinine Glucose 101 H POC Glucose 64 L Magnesium NT-Pro-B Natriuret Pep Total Protein Albumin Digoxin 09/11/20 09/11/20 09/12/20 03:54 03:54 08:22 RBC Hgb Hct MCV MCH RDW Plt Count [place] % (Auto) Lymph # (Auto) Seg Neuts % (Manual) PT 16.2 H 16.4 H INR 1.27 H 1.29 H ABG pH ABG pO2 ABG O2 Saturation Oxyhemoglobin Sodium 135 L Potassium Chloride Carbon Dioxide BUN 30 H Creatinine Glucose POC Glucose Magnesium NT-Pro-B Natriuret Pep Total Protein Albumin Digoxin 09/12/20 09/13/20 09/13/20 08:22 05:07 05:07 RBC 5.73 H Hgb 18.6 H Hct 57.0 H MCV 99 H MCH 33 H RDW 15.3 H Plt Count 130 L [place] % (Auto) Lymph # (Auto) Seg Neuts % (Manual) PT 17.8 H INR 1.45 H ABG pH ABG pO2 ABG O2 Saturation Oxyhemoglobin Sodium 135 L Potassium Chloride Carbon Dioxide BUN 28 H Creatinine Glucose POC Glucose Magnesium NT-Pro-B Natriuret Pep Total Protein Albumin Digoxin 09/14/20 09/15/20 09/16/20 08:10 05:49 05:48 RBC Hgb Hct MCV MCH RDW Plt Count [place] % (Auto) Lymph # (Auto) Seg Neuts % (Manual) PT 19.1 H 18.8 H 22.9 H INR 1.58 H 1.55 H 1.99 H ABG pH ABG pO2 ABG O2 Saturation Oxyhemoglobin Sodium Potassium Chloride Carbon Dioxide BUN Creatinine Glucose POC Glucose Magnesium NT-Pro-B Natriuret Pep Total Protein Albumin Digoxin Allied health notes reviewed: nursing
--- NOTE | 2020-09-16 14:30 | Discharge Summary ---
Providers - Providers Date of Admission: 09/05/20 22:33 Date of discharge: 09/16/20 Attending physician: SHANNAN TEJADA 09/05/20 22:33 Consult to Dietitian/Nutrition [CONS] Routine Physician Instructions: Reason For Exam: Reason for Consult: Diet education 09/05/20 22:38 Consult to Physician [CONS] Routine Comment: Consulting Provider: DWAYNE YOUNG Physician Instructions: Reason For Exam: AFIB WITH RVR 09/05/20 23:14 Consult to Physician [CONS] Urgent Comment: Consulting Provider: CRICKET BARORN Physician Instructions: Reason For Exam: afib rvr 09/10/20 14:12 Consult to Case Management [CONS] Routine Services Needed at Discharge: Solder Leveler [employer] Notified:: case worker 09/11/20 16:46 Physical Therapy Evaluation and Treat [CONS] Routine Comment: Reason For Exam: eval Primary care physician: HIGH WORKER Hospitalization Condition: Stable Hospital course: 60-year-old male with atrial fibrillation, HFrEF (30-35%), hypertension, medical noncompliance, alcohol abuse (~4 beers/day) and tobacco abuse presented to the emergency room on 09/05 with shortness of breath and chest pain which has been ongoing for about 3 days with some nausea but no vomiting and mild swelling in his lower extremities. He was admitted with Lucien cole with RVR and was given Cardizem IV and started on a Cardizem drip in the emergency department and was also noted to have elevated proBNP. Cardiology was consulted. 08/27 patient RVR blood improved his home medications were restarted and patient was consulted on adherence to medical regimen. On 09/07 his diltiazem was changed to p.o. on 09/08 Haldol as needed was ordered. On 09/09 he still remains in bilateral wrist restraints with subtherapeutic INR. On 09/10 Case management and physical therapy were consulted. On 09/11 physical therapy completed their evaluation and recommended a 3 in 1 commode, shower chair and SNF placement if unable to return to previous living situation. Patient INR slowly increased and on day of discharge it is 1.99. He will need to follow-up with cardiology on 09/18 for INR check. Patient strongly encouraged for alcohol and tobacco cessation and adherence to medical treatment. Patient was consulted on establishing primary care physician and following up with cardiology. Patient understands he will need to follow-up with cardiology periodically for an INR check. He will need to follow-up with his primary care physician within 1 to 2 weeks of discharge. He will need to follow-up with cardiology on 09/18 for an INR check. Patient will be discharged to his previous living situation. (1) Atrial fibrillation with rapid ventricular response Current Visit: Yes Status: Acute Plan to address problem: S/p IV push Cardizem and Cardizem drip in the ED Cardizem drip dc and changed to po per marine propulsion technician Cardiology consult, appreciate recommendations Continue metoprolol, diltiazem and digoxin for rate control Continue warfarin with a target INR 2-3 - pharmacy to dose 09/12 dose increased to 8 mg due to continued subtherapeutic INR 09/13: INR increased however still subtherapeutic, pharmacy to continue a 8 mg dose for now 09/16 INR 1.99, cleared for discharge by cardiology Follow-up with cardiology on 09/08 for an INR check Follow-up with cardiology (2) Systolic CHF Current Visit: Yes Status: Acute Qualifiers: Heart failure chronicity: acute on chronic Qualified Code(s): I50.23 - Acute on chronic systolic (congestive) heart failure Plan to address problem: ASA, diuretic, afterload reduction Anticoagulation with warfarin follow-up with cardiology for INR check on 09/18 Echocardiogram shows EF of 30 to 35% with cardiomyopathy, mild MS and mild dilation of left atrium. 05/2020 Lexiscan stress test was negative for ischemia Follow-up with cardiology outpatient (3) Noncompliance with medication regimen Current Visit: Yes Status: Chronic Plan to address problem: Compliance with medication is encouraged. Patient verbalized understanding. (4) Alcohol abuse Current Visit: Yes Status: Chronic Plan to address problem: Alcohol cessation counseling provided Fall and aspiration precautions (5) Discharge planning issues Current Visit: Yes Status: Acute Plan to address problem: 09/11 PT consulted who recommends SNF placement if unable to return to previous living accommodations 09/11 CM consulted Patient was given resources for continued care by his case management Disposition: TO HOME OR SELFCARE Time spent for discharge: 35 Core Measure Documentation - Palliative Care Palliative Care/ Comfort Measures: Not Applicable - Core Measures Any of the following diagnoses?: none Exam - Constitutional Vitals: Temp Pulse Resp BP Pulse Ox 98.3 F 78 16 132/83 97 09/16/20 11:57 09/16/20 11:57 09/16/20 11:57 09/16/20 11:57 09/16/20 11:57 Plan Activity: advance as tolerated Diet: low fat, low salt Special Instructions: record daily BP diary, smoking cessation, other (Alcohol cessation) Additional Instructions: Follow-up with primary care physician within 1 to 2 weeks of discharge. Follow-up with cardiology on 09/16 for an INR check. You will be discharged with 10 mg of warfarin daily. You will need to follow-up [facility] cardiology periodically for an INR check. Smoking and alcohol cessation strongly encouraged. Medical compliance strongly encouraged. Follow up with: PRIMARY CARE, [Primary Care Provider] - 3-5 Days Forms: Warfarin Discharge Instruction Prescriptions: Spironolactone [Aldactone] 50 mg PO QDAY #30 tablet dilTIAZem [Cardizem] 60 mg PO Q8H #90 tablet Nicotine [Habitrol] 14 mg TD QDAY #30 patch Digoxin [Lanoxin] 0.25 mg PO DAILY@1700 #30 tablet Furosemide [Lasix TAB] 20 mg PO QDAY #30 tablet Metoprolol [Lopressor TAB] 50 mg PO BID #60 tablet lisinopriL [Zestril TAB] 5 mg PO QDAY #30 tablet
[2020-09-16] MEDS ORDERED: WARFARIN 2 MG TAB PO SCH (17:00)
== END 2020-09-16 17:45 | disposition home or self-care (01) | DRG 308 ==
LOC: ED 17:14 → CC1 22:33 → 4A 09-06 04:13
PROVIDERS: ADMIT Internal Medicine Geriatric Medicine; ATTEND Internal Medicine
PROC: 4A033R1 Measurement of Arterial Saturation, Peripheral, Percutaneous Approach (ICD-10-PCS; principal; 2020-09-07)
DX: I48.19 Other persistent atrial fibrillation (principal); I50.23 Acute on chronic systolic (congestive) heart failure; J96.01 Acute respiratory failure with hypoxia; N17.9 Acute kidney failure, unspecified; I42.0 Dilated cardiomyopathy; I42.8 Other cardiomyopathies; J45.909 Unspecified asthma, uncomplicated; F10.10 Alcohol abuse, uncomplicated; E87.6 Hypokalemia; Z91.14 Patient's other noncompliance with medication regimen; I11.0 Hypertensive heart disease with heart failure; F17.200 Nicotine dependence, unspecified, uncomplicated; E83.42 Hypomagnesemia; Z79.01 Long term (current) use of anticoagulants; Y90.9 Presence of alcohol in blood, level not specified
CPT/HCPCS: 36415; 36600; 71045; 80048; 80053; 80162; 80320; 82803; 82962; 83735; 83880; 84439; 84443; 84484; 85007; 85025; 85027; 85610; 85730; 90686; 93005; G0378; G0480; J1650; J1940; J2060; J2270; J2405; J3475

== ENCOUNTER 2020-10-03 10:57 | Emergency (ER) | payer SELFPAY ==
[2020-10-03] MEDS ORDERED: DIPHtheria,PERTUSSIS(ACELL),TETANUS VACCINE/PF 0.5 ML VIAL IM ONE (11:38)
[2020-10-03 11:39] VITALS: BP 185/91
--- NOTE | 2020-10-03 11:40 | Event Note ---
ED Screening Note Date of service: 10/03/20 Time: 11:39 ED Screening Note: Patient complains of sudden onset of left arm swelling and pain x2 days Patient states swelling and pain began after scratching his arm Unknown last tetanus vaccination This initial assessment/diagnostic orders/clinical plan/treatment(s) is/are subject to change based on patients health status, clinical progression and re- assessment by fellow clinical providers in the ED. Further treatment and workup at subsequent clinical providers discretion. Patient/guardian urged not to elope from the ED as their condition may be serious if not clinically assessed and managed. Initial orders include: Labs Tetanus vaccine X-ray
--- NOTE | 2020-10-03 12:21 | XRay Report ---
LEFT WRIST 3 VIEWS INDICATION: acute wrist pain, swelling, and redness; no injury. COMPARISON: None. IMPRESSION: There is diffuse soft tissue swelling. 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 No evidence for acute fracture. Mild osteoarthritic changes at the radiocar pal joint is noted. Signer Name: Ulices Chirinos Jr, MD Signed: 10/03/2020 12:17 PM Workstation Name: [id number]
[2020-10-03 13:22] LABS: Basophils # (Auto) 0.1 K/mm3 (0.0-0.1); Basophils % (Auto) 0.8 % (0.0-1.8); Eosinophils # (Auto) 0.1 K/mm3 (0.0-0.4); Eosinophils % (Auto) 0.7 % (0.0-4.3); Hematocrit 48.6 % (35.5-45.6); Lymphocytes # (Auto) 1.7 K/mm3 (1.2-5.4); Lymphocytes % (Auto) 18.5 % (13.4-35.0); Mean Corpuscular HGB Conc 33 % (32-34); Mean Corpuscular Volume 96 fl (84-94); Monocytes # (Auto) 0.9 K/mm3 (0.0-0.8); Platelet Count 130 K/mm3 (140-440); Red Blood Count 5.05 M/mm3 (3.65-5.03); Red Cell Distribution Width 14.4 % (13.2-15.2)
[2020-10-03 13:41] LABS: Alanine Aminotransferase 14 units/L (7-56); Albumin 3.3 g/dL (3.9-5); BUN/Creatinine Ratio 24; Blood Urea Nitrogen 19 mg/dL (9-20); Calcium 9.3 mg/dL (8.4-10.2); Hemolysis Index 24; Uric Acid 10.2 mg/dL (3.5-7.6)
[2020-10-03] MEDS ORDERED: KETOROLAC 30 MG/1 ML INJ IV ONE (20:40)
[2020-10-03] MEDS ORDERED: SODIUM CHLORIDE 0.9% 1000 ML 1,000 ML IV ONE (20:40)
[2020-10-03] MEDS ORDERED: CLINDAMYCIN 600 MG/50 mL 600 MG/50 ML BAG IV ONE (20:40)
--- NOTE | 2020-10-03 21:16 | Emergency Department Report ---
ED Extremity Problem HPI - General Chief complaint: Extremity Injury, Upper Stated complaint: CHECK UP Time Seen by Provider: 10/03/20 11:38 Source: patient Mode of arrival: Ambulatory Limitations: No Limitations - History of Present Illness Initial comments: Patient is a 60-year-old male who is presenting with some swelling to the left wrist. States is been present for 1 day. Is mostly on the dorsum of the wrist. The volar surface is spared. Patient states he had a small pustule slightly higher than this area in the mid forearm. He states he did pick it and scratch this area. Patient has several other areas the started cropping up but then the entire dorsum of the left wrist extending into the MCP joints began to swell. States it is red warm and there is some pain with palpation. He denies fevers chills nausea vomiting. Aside from the swelling to the left wrist the patient also states that he is a heavy beer drinker. States he is trying to stop drinking and smoking cigarettes because this is not good for his health. States he has been eating and drinking less. States he has some mild dizziness. Severity scale (0 -10): 4 - Related Data Previous Rx's Medication Instructions Recorded Last Taken Type Furosemide [Lasix TAB] 40 mg PO QDAY #30 tablet 04/29/20 Unknown Rx Magnesium Oxide [Mag-Ox] 400 mg PO BID 7 Days #14 tablet 04/29/20 Unknown Rx Acetaminophen [Acetaminophen TAB] 650 mg PO Q6H PRN tablet 09/16/20 Unknown Rx Digoxin [Lanoxin] 0.25 mg PO DAILY@1700 #30 tablet 09/16/20 Unknown Rx Furosemide [Lasix TAB] 20 mg PO QDAY #30 tablet 09/16/20 Unknown Rx Metoprolol [Lopressor TAB] 50 mg PO BID #60 tablet 09/16/20 Unknown Rx Nicotine [Habitrol] 14 mg TD QDAY #30 patch 09/16/20 Unknown Rx Spironolactone [Aldactone] 50 mg PO QDAY #30 tablet 09/16/20 Unknown Rx Warfarin [Coumadin] 10 mg PO QDAY #30 tablet 09/16/20 Unknown Rx dilTIAZem [Cardizem] 60 mg PO Q8H #90 tablet 09/16/20 Unknown Rx lisinopriL [Zestril TAB] 5 mg PO QDAY #30 tablet 09/16/20 Unknown Rx Clindamycin [Clindamycin CAP] 300 mg PO Q8H #21 cap 10/03/20 Unknown Rx HYDROcodone/APAP 5-325 [[place] 1 each PO Q6HR PRN #14 tablet 10/03/20 Unknown Rx 5/325] predniSONE [Deltasone] 20 mg PO QDAY #5 tab 10/03/20 Unknown Rx Allergies Allergy/AdvReac Type Severity Reaction Status Date / Time No Known Allergies Allergy Unverified 04/26/20 08:51 ED Review of Systems ROS: Stated complaint: CHECK UP Other details as noted in HPI Comment: All other systems reviewed and negative ED Past Medical Hx - Past Medical History Previous Medical History?: Yes Hx Hypertension: Yes Hx Congestive Heart Failure: No Hx Diabetes: No Hx Asthma: Yes Hx COPD: No - Surgical History Past Surgical History?: No - Social History Smoking Status: Current Every Day Smoker - Medications Home Medications: Home Medications Medication Instructions Recorded Confirmed Last Taken Type Furosemide [Lasix TAB] 40 mg PO QDAY #30 tablet 04/29/20 09/07/20 Unknown Rx Magnesium Oxide [Mag-Ox] 400 mg PO BID 7 Days #14 tablet 04/29/20 09/07/20 Unknown Rx Acetaminophen [Acetaminophen TAB] 650 mg PO Q6H PRN tablet 09/16/20 Unknown Rx Digoxin [Lanoxin] 0.25 mg PO DAILY@1700 #30 tablet 09/16/20 Unknown Rx Furosemide [Lasix TAB] 20 mg PO QDAY #30 tablet 09/16/20 Unknown Rx Metoprolol [Lopressor TAB] 50 mg PO BID #60 tablet 09/16/20 Unknown Rx Nicotine [Habitrol] 14 mg TD QDAY #30 patch 09/16/20 Unknown Rx Spironolactone [Aldactone] 50 mg PO QDAY #30 tablet 09/16/20 Unknown Rx Warfarin [Coumadin] 10 mg PO QDAY #30 tablet 09/16/20 Unknown Rx dilTIAZem [Cardizem] 60 mg PO Q8H #90 tablet 09/16/20 Unknown Rx lisinopriL [Zestril TAB] 5 mg PO QDAY #30 tablet 09/16/20 Unknown Rx Clindamycin [Clindamycin CAP] 300 mg PO Q8H #21 cap 10/03/20 Unknown Rx HYDROcodone/APAP 5-325 [[place] 1 each PO Q6HR PRN #14 tablet 10/03/20 Unknown Rx 5/325] predniSONE [Deltasone] 20 mg PO QDAY #5 tab 10/03/20 Unknown Rx ED Physical Exam - General Limitations: No Limitations General appearance: alert, in no apparent distress - Head Head exam: Present: atraumatic, normocephalic - Eye Eye exam: Present: normal appearance, PERRL, EOMI - ENT ENT exam: Present: mucous membranes moist - Neck Neck exam: Present: normal inspection - Respiratory Respiratory exam: Present: normal lung sounds bilaterally. Absent: respiratory distress, wheezes, rales, rhonchi - Cardiovascular Cardiovascular Exam: Present: regular rate, normal rhythm. Absent: systolic murmur, diastolic murmur, rubs, gallop - GI/Abdominal GI/Abdominal exam: Present: soft, normal bowel sounds. Absent: distended, tenderness, guarding, rebound - Rectal Rectal exam: Present: deferred - Extremities Exam Extremities exam: Present: normal inspection - Expanded Upper Extremity Exam Left Forearm Wrist exam: Present: other (some healed dark lesions scattered) Hand Wrist exam: Present: full ROM (although painful), tenderness, swelling, erythema, other (no fluctuance). Absent: laceration, ecchymosis, deformity, crepidus, amputation, nail avulsion - Back Exam Back exam: Present: normal inspection - Neurological Exam Neurological exam: Present: alert, oriented X3 - Psychiatric Psychiatric exam: Present: normal affect, normal mood - Skin Skin exam: Present: warm, dry, intact, normal color. Absent: rash ED Course Vital Signs 10/03/20 11:35 Temperature 98.4 F Pulse Rate 110 H Respiratory 18 Rate Blood Pressure 185/91 [Right] O2 Sat by Pulse 100 Oximetry ED Medical Decision Making - Lab Data Result diagrams: 10/03/20 12:41 10/03/20 12:41 - Medical Decision Making Patient is a 60-year-old male who has some swelling redness and warmth to the dorsum of his left wrist consistent with a cellulitis. He does have some passive range of motion I do not believe he has a septic joint at this time. Patient was started on IV clindamycin. Patient given some IV fluids as well since his sodium was 129 chloride of 94.8 hemoglobin 16. Patient is a heavy beer drinker and likely showing some hyponatremia secondary to the heavy mina consumption. We did talk about making some life changes with his alcohol abuse. Patient will be stable for discharge after receiving his medications. Critical care attestation.: If time is entered above; I have spent that time in minutes in the direct care of this critically ill patient, excluding procedure time. ED Disposition Clinical Impression: Cellulitis of wrist, Hyponatremia, Mild dehydration, Alcohol abuse Disposition: DC-01 TO HOME OR SELFCARE Is pt being admited?: No Does the pt Need Aspirin: No Condition: Stable Instructions: Alcohol Use Disorder, Cellulitis, Adult, Dehydration, Adult Referrals: PRIYANKA PAINTER MD [Staff Physician] - 3-5 Days Time of Disposition: 21:54
== END 2020-10-03 22:30 | disposition home or self-care (01) ==
LOC: ED 10:57
DX: L03.114 Cellulitis of left upper limb (principal); E86.0 Dehydration; E87.1 Hypo-osmolality and hyponatremia; F10.129 Alcohol abuse with intoxication, unspecified
CPT/HCPCS: 36415; 73110; 80053; 84550; 85025; 96365; 96375; 99284; J1885; J7030

== ENCOUNTER 2020-10-15 11:18 | Emergency (ER) | payer SELFPAY ==
--- NOTE | 2020-10-15 11:40 | Event Note ---
ED Screening Note Date of service: 10/15/20 Time: 11:39 ED Screening Note: Patient complains of continued left hand pain and swelling since visit 10/03/2020 Heart rate noted to be irregular and tachycardic History of A. fib with RVR This initial assessment/diagnostic orders/clinical plan/treatment(s) is/are subject to change based on patients health status, clinical progression and re- assessment by fellow clinical providers in the ED. Further treatment and workup at subsequent clinical providers discretion. Patient/guardian urged not to elope from the ED as their condition may be serious if not clinically assessed and managed. Initial orders include: Labs EKG X-ray
[2020-10-15 12:27] LABS: Basophils # (Auto) 0.1 K/mm3 (0.0-0.1); Basophils % (Auto) 0.8 % (0.0-1.8); Eosinophils % (Auto) 0.3 % (0.0-4.3); Hematocrit 46.1 % (35.5-45.6); Hemoglobin 15.6 gm/dl (11.8-15.2); Lymphocytes # (Auto) 1.4 K/mm3 (1.2-5.4); Lymphocytes % (Auto) 14.5 % (13.4-35.0); Mean Corpuscular HGB Conc 34 % (32-34); Mean Corpuscular Volume 95 fl (84-94); Monocytes # (Auto) 1.3 K/mm3 (0.0-0.8); Monocytes % (Auto) 14.2 % (0.0-7.3); Platelet Count 161 K/mm3 (140-440); Red Blood Count 4.85 M/mm3 (3.65-5.03); Red Cell Distribution Width 14.2 % (13.2-15.2)
--- NOTE | 2020-10-15 12:43 | XRay Report ---
LEFT HAND 3 VIEWS INDICATION / CLINICAL INFORMATION: Pain, swelling, redness. COMPARISON: None available. FINDINGS: Moderate degenerative change in the thumb carpometacarpal joint. No other significant skeletal abnorm ality Signer Name: Jonnathan Chinchilla MD FACR Signed: 10/15/2020 12:38 PM Workstation Name: [id number]
--- NOTE | 2020-10-15 12:43 | XRay Report ---
LEFT KNEE 3 VIEWS INDICATION / CLINICAL INFORMATION: pain, no injury. COMPARISON: None available. FINDINGS: Mild medial joint space narrowing. Vascular calcification is present. There appears to be a suprapate llar effusion present. No other significant abnormality Signer Name: Jonnathan Chinchilla MD FACR Signed: 10/15/2020 12:39 PM Workstation Name: [id number]
[2020-10-15 12:49] LABS: Alanine Aminotransferase 16 units/L (7-56); Albumin 2.9 g/dL (3.9-5); BUN/Creatinine Ratio 19; Blood Urea Nitrogen 17 mg/dL (9-20); Hemolysis Index 3
[2020-10-15] MEDS ORDERED: dilTIAZem 25 MG/5 ML INJ IV ONE (14:48)
[2020-10-15] MEDS ORDERED: dilTIAZem 30 MG TAB PO ONE (14:48)
[2020-10-15] MEDS ORDERED: predniSONE 20 MG TAB PO ONE (14:52)
[2020-10-15] MEDS ORDERED: HYDROcodone/ACETAMINOPHEN 5-325 MG TAB PO ONE (14:52)
--- NOTE | 2020-10-15 14:52 | Emergency Department Report ---
ED General Adult HPI - General Chief complaint: Extremity Injury, Lower Stated complaint: LT ARM/LT LEG PAIN PUI?: No Time Seen by Provider: 10/15/20 11:33 Source: patient, EMS Mode of arrival: Wheelchair Limitations: No Limitations - History of Present Illness Initial comments: Chief complaint: Hand and leg pain HPI: This is a 60-year-old male with history of atrial fibrillation, systolic CHF EF 30 to 35%, hypertension, alcohol abuse, tobacco abuse who presents with left hand and left knee pain and swelling. 2 weeks ago he was evaluated by my colleague here for left hand swelling. He was diagnosed at the time of cellul itis. Due to persistent pain and swelling he called EMS for transport. He was prescribed hydrocodone prednisone and clindamycin at that time without relief. Patient denies any trauma to the hand or knee. Left knee pain swelling began a week ago. Patient admits to not taking her his medication today. He does state that he has been normally compliant. His last drink of beer was 2 weeks ago. Patiently recently admitted and treated for atrial fibrillation RVR and CHF last month. Patient underwent myocardial perfusion scan in April of this year. At that time no evidence of ischemia on perfusion imaging. Patient does not have a PCP. -: Gradual, week(s) (2) Location: left, upper extremity, lower extremity Severity scale (0 -10): 8 Quality: aching Consistency: constant Improves with: none Worsens with: movement Associated Symptoms: denies other symptoms - Related Data Previous Rx's Medication Instructions Recorded Last Taken Type Furosemide [Lasix TAB] 40 mg PO QDAY #30 tablet 04/29/20 Unknown Rx Magnesium Oxide [Mag-Ox] 400 mg PO BID 7 Days #14 tablet 04/29/20 Unknown Rx Acetaminophen [Acetaminophen TAB] 650 mg PO Q6H PRN tablet 09/16/20 Unknown Rx Digoxin [Lanoxin] 0.25 mg PO DAILY@1700 #30 tablet 09/16/20 Unknown Rx Furosemide [Lasix TAB] 20 mg PO QDAY #30 tablet 09/16/20 Unknown Rx Metoprolol [Lopressor TAB] 50 mg PO BID #60 tablet 09/16/20 Unknown Rx Nicotine [Habitrol] 14 mg TD QDAY #30 patch 09/16/20 Unknown Rx Spironolactone [Aldactone] 50 mg PO QDAY #30 tablet 09/16/20 Unknown Rx Warfarin [Coumadin] 10 mg PO QDAY #30 tablet 09/16/20 Unknown Rx dilTIAZem [Cardizem] 60 mg PO Q8H #90 tablet 09/16/20 Unknown Rx lisinopriL [Zestril TAB] 5 mg PO QDAY #30 tablet 09/16/20 Unknown Rx Clindamycin [Clindamycin CAP] 300 mg PO Q8H #21 cap 10/03/20 Unknown Rx HYDROcodone/APAP 5-325 [[place] 1 each PO Q6HR PRN #14 tablet 10/03/20 Unknown Rx 5/325] predniSONE [Deltasone] 20 mg PO QDAY #5 tab 10/03/20 Unknown Rx HYDROcodone/APAP 5-325 [[place] 1 each PO Q6HR PRN #20 tablet 10/15/20 Unknown Rx 5/325] Prednisone [predniSONE 10 mg 10 mg PO .TAPER #1 tab.ds.pk 10/15/20 Unknown Rx (6-Day Pack, 21 Tabs)] Allergies Allergy/AdvReac Type Severity Reaction Status Date / Time No Known Allergies Allergy Unverified 04/26/20 08:51 ED Review of Systems ROS: Stated complaint: LT ARM/LT LEG PAIN Other details as noted in HPI Comment: All other systems reviewed and negative Constitutional: denies: fever, malaise Respiratory: denies: cough, shortness of breath Cardiovascular: denies: chest pain, palpitations Gastrointestinal: denies: abdominal pain, nausea, vomiting ED Past Medical Hx - Past Medical History Previous Medical History?: Yes Hx Hypertension: Yes Hx Congestive Heart Failure: No Hx Diabetes: No Hx Asthma: Yes Hx COPD: No Additional medical history: CHF, atrial fibrillation - Surgical History Past Surgical History?: No - Social History Smoking Status: Current Every Day Smoker Substance Use Type: Alcohol - Medications Home Medications: Home Medications Medication Instructions Recorded Confirmed Last Taken Type Furosemide [Lasix TAB] 40 mg PO QDAY #30 tablet 04/29/20 09/07/20 Unknown Rx Magnesium Oxide [Mag-Ox] 400 mg PO BID 7 Days #14 tablet 04/29/20 09/07/20 Unknown Rx Acetaminophen [Acetaminophen TAB] 650 mg PO Q6H PRN tablet 09/16/20 Unknown Rx Digoxin [Lanoxin] 0.25 mg PO DAILY@1700 #30 tablet 10/26/20 Unknown Rx Furosemide [Lasix TAB] 20 mg PO QDAY #30 tablet 09/16/20 Unknown Rx Metoprolol [Lopressor TAB] 50 mg PO BID #60 tablet 09/16/20 Unknown Rx Nicotine [Habitrol] 14 mg TD QDAY #30 patch 09/16/20 Unknown Rx Spironolactone [Aldactone] 50 mg PO QDAY #30 tablet 09/16/20 Unknown Rx Warfarin [Coumadin] 10 mg PO QDAY #30 tablet 09/16/20 Unknown Rx dilTIAZem [Cardizem] 60 mg PO Q8H #90 tablet 09/16/20 Unknown Rx lisinopriL [Zestril TAB] 5 mg PO QDAY #30 tablet 09/16/20 Unknown Rx Clindamycin [Clindamycin CAP] 300 mg PO Q8H #21 cap 10/03/20 Unknown Rx HYDROcodone/APAP 5-325 [[place] 1 each PO Q6HR PRN #14 tablet 10/03/20 Unknown Rx 5/325] predniSONE [Deltasone] 20 mg PO QDAY #5 tab 10/03/20 Unknown Rx HYDROcodone/APAP 5-325 [[place] 1 each PO Q6HR PRN #20 tablet 10/15/20 Unknown Rx 5/325] Prednisone [predniSONE 10 mg 10 mg PO .TAPER #1 tab.ds.pk 10/15/20 Unknown Rx (6-Day Pack, 21 Tabs)] ED Physical Exam - General Limitations: No Limitations General appearance: alert, in no apparent distress - Head Head exam: Present: atraumatic, normocephalic - Eye Eye exam: Present: normal appearance - ENT ENT exam: Present: mucous membranes moist - Neck Neck exam: Present: normal inspection, full ROM - Respiratory Respiratory exam: Present: normal lung sounds bilaterally. Absent: respiratory distress, wheezes, rales, rhonchi - Cardiovascular Cardiovascular Exam: Present: tachycardia, irregular rhythm, normal heart sounds. Absent: systolic murmur, diastolic murmur, rubs, gallop - GI/Abdominal GI/Abdominal exam: Present: soft, normal bowel sounds. Absent: distended, tenderness, guarding, rebound - Rectal Rectal exam: Present: deferred - Back Exam Back exam: Present: normal inspection - Neurological Exam Neurological exam: Present: alert, oriented X3 - Psychiatric Psychiatric exam: Present: normal affect, normal mood - Skin Skin exam: Present: warm, dry, intact, normal color. Absent: rash - Other Other exam information: Left hand: Global swelling without erythema, no fluctuance, flesh-colored Left knee: Global swelling, no erythema, no warmth ED Course Vital Signs 10/15/20 10/15/20 11:34 15:16 Temperature 97.6 F Pulse Rate 133 H 150 H Respiratory 20 Rate Blood Pressure 113/80 Blood Pressure 104/81 [Right] O2 Sat by Pulse 99 Oximetry ED Medical Decision Making - Lab Data Result diagrams: 10/15/20 11:57 10/15/20 11:57 - Medical Decision Making 1. Left hand and left knee swelling: With history of alcohol abuse, I strongly suspect gouty arthropathy. I do not suspect septic arthritis. No fever. No leukocytosis. No erythema or warmth. Patient received analgesia and prednisone in the emergency department. Prescribed [place] prednisone 2. Atrial fibrillation RVR patient does admit to medication noncompliance: Patient was rate controlled with diltiazem IV and p.o. in the emergency department. I have referred him to appeals examiner and outpatient medicine physician. 3. Subtherapeutic INR: Patient understands to double his next 3 doses of warfarin therapy. Critical care attestation.: If time is entered above; I have spent that time in minutes in the direct care of this critically ill patient, excluding procedure time. ED Disposition Clinical Impression: Acute gouty arthropathy, Atrial fibrillation with rapid ventricular response, Subtherapeutic international normalized ratio (INR) Disposition: DC-01 TO HOME OR SELFCARE Is pt being admited?: No Does the pt Need Aspirin: No Condition: Stable Instructions: Atrial Fibrillation, [id number] Prescriptions: HYDROcodone/APAP 5-325 [[place] 5/325] 1 each PO Q6HR PRN #20 tablet PRN Reason: Pain Prednisone [predniSONE 10 mg (6-Day Pack, 21 Tabs)] 10 mg PO .TAPER #1 tab.ds.pk Referrals: DUNG FLETCHER MD [Staff Physician] - 3-5 Days
[2020-10-15 15:41] LABS: INR 1.25 (0.87-1.13)
[2020-10-15 16:37] VITALS: BP 111/76
== END 2020-10-15 16:32 | disposition home or self-care (01) ==
LOC: ED 11:18
DX: M10.9 Gout, unspecified (principal); I48.91 Unspecified atrial fibrillation; R79.1 Abnormal coagulation profile; F17.200 Nicotine dependence, unspecified, uncomplicated; J45.909 Unspecified asthma, uncomplicated; I11.0 Hypertensive heart disease with heart failure; I50.9 Heart failure, unspecified; Z79.899 Other long term (current) drug therapy
CPT/HCPCS: 36415; 73130; 73562; 80053; 82140; 84484; 85025; 85610; 93005; 96374; 99284; J7512